=== PATIENT | female | born 1940 | race Caucasian/White ===

== ENCOUNTER 2018-07-12 07:44 | Emergency (ER) | payer MEDICARE, OTHER, SELFPAY ==
[2018-07-12 07:47] VITALS: BP 151/92; PULSE 84; RESP 16; TEMP 36.5; O2SAT 98
--- NOTE | 2018-07-12 08:43 | W.ED.GENAD ---
Discharge Plan Disposition Patient Disposition: HOME Condition: Improving Discharge Details Chief Complaint: Laceration Clinical Impression: Bleeding from wound Primary Care Provider: Jack Martinez ED Provider: Ever To Home Meds and New Rx's Prescriptions: Continue diltiazem HCl 120 mg capsule,extended release 24hr 120 mg PO HS Qty: 90 RF: 3 metformin [Glucophage] 850 mg tablet 850 mg PO BID Qty: 180 RF: 3 blood-glucose meter kit .ROUTE .MEDSUPPLY Qty: 1 RF: 0 blood sugar diagnostic [Blood Glucose Test] strip .ROUTE .MEDSUPPLY Qty: 20 RF: 12 cholecalciferol (vitamin D3) 1,000 UNIT capsule 1,000 unit PO DAILY RF: 0 clobetasol-emollient 45 GM cream 45 gm Topical BID PRNQty: 1 RF: 2 diclofenac sodium [Voltaren] 100 GM gel 2 g Topical BID PRNQty: 100 RF: 1 albuterol sulfate [ProAir HFA] 8.5 GM HFA aerosol inhaler 2 puff Inhalation Q4H PRN Qty: 1 RF: 6 multivitamin [Daily Multiple] 1 EACH tablet 1 ea PO DAILY RF: 0 hydrochlorothiazide 25 MG tablet 25 mg PO DAILY Qty: 90 RF: 3 glipizide 10 MG tablet 10 mg PO DAILY Qty: 90 RF: 3 blood sugar diagnostic [Blood Glucose Test] strip .ROUTE .MEDSUPPLY Qty: 20 RF: 0 blood-glucose meter kit .ROUTE .MEDSUPPLY Qty: 1 RF: 0 ascorbic acid (vitamin C) [Vitamin C] 500 MG tablet 500 mg PO BID Qty: 60 RF: 3 atorvastatin 40 MG tablet 40 mg PO HS RF: 0 aspirin 81 MG tablet,chewable 81 mg PO DIRECTED RF: 0 Discharge Instructions Instructions: Skin Adhesive Care (ED) Additional Instructions: 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 Call today. Keep wound protected. Return to the ER for any worsening or new concerning symptoms. Referrals: Myles Simpson MD [MD CONSULTING PHYSICIAN] - Medical Decision Making 78yo f on low-dose aspirin here 1 day status post skin lesion surgical removal from her left rastafari with oozing wound. Lidocaine with epinephrine 1 mL injected locally. Direct pressure with TXA soaked gauze applied. Skin adhesive applied. Bleeding controlled. She was instructed to call her treating provider Dr. Simpson today to arrange appropriate follow-up. I encouraged her to return to the emergency department immediately for any worsening or new concerning symptoms. I reviewed how to control bleeding with direct pressure should this be needed. HPI General Mode of arrival: ambulatory. Date/Time Provider Initiated Documentation: 07/12/18 07:58. Limitations to Documentation: no limitations. Information obtained by: patient. HPI Narrative: 78-year-old female on low-dose aspirin here 1 day status post skin lesion excision and removal from her left rastafari performed by Dr. Simpson at [place], here with bleeding wound. Wound started bleeding last night and used all night long. She had to change multiple dressings. No heavy bleeding. Bleeding improved with pressure. No associated weakness. Related Data Home Medications Medication Instructions Recorded Confirmed cholecalciferol (vitamin D3) 1,000 unit PO DAILY cap 02/06/14 07/12/18 clobetasol-emollient 45 gm TOPICAL BID PRN #1 script 12/16/14 07/12/18 ascorbic acid (vitamin C) [Vitamin 500 mg PO BID #60 tab 04/22/16 07/12/18 C] diclofenac sodium [Voltaren] 2 g TOPICAL BID PRN #100 gm 08/24/16 07/12/18 albuterol sulfate [ProAir HFA] 2 puff INHALATION Q4H PRN #1 11/16/16 07/12/18 inhaler multivitamin [Daily Multiple] 1 ea PO DAILY 05/16/17 06/12/18 hydrochlorothiazide 25 mg PO DAILY #90 tab 09/06/17 07/12/18 glipizide 10 mg PO DAILY #90 tab 12/05/17 07/12/18 blood sugar diagnostic strips #20 each 06/12/18 06/12/18 blood sugar diagnostic strips #20 each 06/12/18 06/12/18 blood-glucose meter kit #1 each 06/12/18 06/12/18 blood-glucose meter kit #1 each 06/12/18 06/12/18 diltiazem CD 120 mg 120 mg PO HS #90 tab-cap 06/12/18 07/12/18 capsule,extended release 24 hr metformin 850 mg tablet 850 mg PO BID #180 tab 06/12/18 07/12/18 aspirin 81 mg PO DIRECTED 07/12/18 07/12/18 atorvastatin 40 mg PO HS 07/12/18 07/12/18 Previous Rx's Medication Instructions Recorded ascorbic acid (vitamin C) [Vitamin 500 mg PO BID #60 tab 04/22/16 C] hydrochlorothiazide 25 mg PO DAILY #90 tab 09/06/17 glipizide 10 mg PO DAILY #90 tab 12/05/17 blood sugar diagnostic strips #20 each 06/12/18 blood-glucose meter kit #1 each 06/12/18 diltiazem CD 120 mg 120 mg PO HS #90 tab-cap 06/12/18 capsule,extended release 24 hr metformin 850 mg tablet 850 mg PO BID #180 tab 06/12/18 Allergies Allergy/AdvReac Type Severity Reaction Status Date / Time tetanus and diphtheria Allergy unknown Verified 07/12/18 08:04 toxoids sitagliptin AdvReac Severe diarrhea Verified 07/12/18 08:04 metoprolol AdvReac Intermediate FATIGUE Verified 07/12/18 08:04 General Stated Complaint: Laceration CARI: 4 Review of Systems Constitutional Reports as per HPI Integumentary/Breasts Reports as per HPI PFSH Family History Mother Alzheimer disease Father Alcohol abuse Personal history of malignant neoplasm Brother Cerebrovascular accident Seizures Medical History 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) Renal insufficiency, mild (Chronic 02/20/14) Pernicious anemia (Chronic 02/16/99) Muscle pain (Resolved 11/14/15) Multiple falls (Chronic 08/24/16) Moderate obstructive sleep apnea (Chronic 09/24/16) Lichen sclerosus (Chronic 12/16/14) Inflammation of toe (Resolved 06/17/15) Hypomagnesemia (Resolved 05/07/16) Hyperlipidemia (Chronic 09/18/92) Gait disturbance (Chronic 03/29/17) Essential hypertension (Chronic 09/18/60) Chronic cough (Chronic 07/29/14) Aortic stenosis, moderate (Chronic) Allergic rhinitis (Chronic 02/06/14) Pneumonia (Resolved) Dehydration (Resolved) Elevated transaminase level (Resolved) Anemia (Chronic) Delirium (Resolved) UTI (urinary tract infection) due to Enterococcus (Resolved) Discharge planning issues (Resolved) Irregular heart beat (Chronic) AF (atrial fibrillation) (Chronic) CHF (congestive heart failure) (Chronic) Social History adopted: No foster care: No lives independently: Yes number of children: 2 current occupational status: retired other: 2 children, both Smoking/Tobacco Use Status: Former Tobacco Use alcohol intake: never substance use type: does not use seatbelt use: always drive intox or ride w/ intox 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 water heater temp set < 120 deg: Yes working smoke detector in home: Yes fire extinguisher in home: No carbon monox detector in home: Yes victim of emotional abuse: No victim of sexual abuse: No would you like helpful sources: No Surgical History Cataract, rgt eye (06/24/15) Dilation and curettage Extraction of cataract (06/10/15) Tonsillectomy and adenoidectomy Exam Skin Other: left rastafari with shave surgical wound quarter sized, oozing blood Course Vital Signs Temperature 36.5 C 07/12/18 07:47 Pulse 84 07/12/18 07:47 Respiratory Rate 16 07/12/18 07:47 Blood Pressure 151/92 H 07/12/18 07:47 Pulse Oximetry 98 07/12/18 07:47 Temperature 36.5 C 07/12/18 07:47 Temperature Source Skin 07/12/18 07:47 Pulse 84 07/12/18 07:47 Respiratory Rate 16 07/12/18 07:47 Respiratory Effort 07/12/18 07:49 Blood Pressure 151/92 H 07/12/18 07:47 Blood Pressure Position Sitting 07/12/18 07:47 Pulse Oximetry 98 07/12/18 07:47 Oxygen Delivery Method Room Air 07/12/18 07:47 Oxygen Flow Rate 0 07/12/18 07:47 Pain Level 0 07/12/18 07:49 Procedures Laceration Laceration 1: Site: face Side (If applicable): left Size (cm): 1 Description: other (cicular skin excision site) Depth: simple, single layer Skin layer closed with: other (skin adhesive)
--- NOTE | 2018-07-12 08:49 | ED.GENADUL_ITS ---
Discharge Plan Disposition Patient Disposition: HOME Condition: Improving Discharge Details Chief Complaint: Laceration Clinical Impression: Bleeding from wound Primary Care Provider: Jack Martinez ED Provider: Ever To Home Meds and New Rx's Prescriptions: Continue diltiazem HCl 120 mg capsule,extended release 24hr 120 mg PO HS Qty: 90 RF: 3 metformin [Glucophage] 850 mg tablet 850 mg PO BID Qty: 180 RF: 3 blood-glucose meter kit .ROUTE .MEDSUPPLY Qty: 1 RF: 0 blood sugar diagnostic [Blood Glucose Test] strip .ROUTE .MEDSUPPLY Qty: 20 RF: 12 cholecalciferol (vitamin D3) 1,000 UNIT capsule 1,000 unit PO DAILY RF: 0 clobetasol-emollient 45 GM cream 45 gm Topical BID PRNQty: 1 RF: 2 diclofenac sodium [Voltaren] 100 GM gel 2 g Topical BID PRNQty: 100 RF: 1 albuterol sulfate [ProAir HFA] 8.5 GM HFA aerosol inhaler 2 puff Inhalation Q4H PRN Qty: 1 RF: 6 multivitamin [Daily Multiple] 1 EACH tablet 1 ea PO DAILY RF: 0 hydrochlorothiazide 25 MG tablet 25 mg PO DAILY Qty: 90 RF: 3 glipizide 10 MG tablet 10 mg PO DAILY Qty: 90 RF: 3 blood sugar diagnostic [Blood Glucose Test] strip .ROUTE .MEDSUPPLY Qty: 20 RF: 0 blood-glucose meter kit .ROUTE .MEDSUPPLY Qty: 1 RF: 0 ascorbic acid (vitamin C) [Vitamin C] 500 MG tablet 500 mg PO BID Qty: 60 RF: 3 atorvastatin 40 MG tablet 40 mg PO HS RF: 0 aspirin 81 MG tablet,chewable 81 mg PO DIRECTED RF: 0 Discharge Instructions Instructions: Skin Adhesive Care (ED) Additional Instructions: Please follow-up with your assistant 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 Call today. Keep wound protected. Return to the ER for any worsening or new concerning symptoms. Referrals: Myles Simpson MD [MD CONSULTING PHYSICIAN] - Medical Decision Making 78yo f on low-dose aspirin here 1 day status post skin lesion surgical removal from her left scientologist with oozing wound. Lidocaine with epinephrine 1 mL injected locally. Direct pressure with TXA soaked gauze applied. Skin adhesive applied. Bleeding controlled. She was instructed to call her treating provider Dr. Simpson today to arrange appropriate follow-up. I encouraged her to return to the emergency department immediately for any worsening or new concerning symptoms. I reviewed how to control bleeding with direct pressure should this be needed. HPI General Mode of arrival: ambulatory . Date/Time Provider Initiated Documentation: 07/12/18 07:58 . Limitations to Documentation: no limitations . Information obtained by: patient . HPI Narrative: 78-year-old female on low-dose aspirin here 1 day status post skin lesion excision and removal from her left scientologist performed by Dr. Simpson at [place], here with bleeding wound. Wound started bleeding last night and used all night long. She had to change multiple dressings. No heavy bleeding. Bleeding improved with pressure. No associated weakness. Related Data Home Medications Medication Instructions Recorded Confirmed cholecalciferol (vitamin D3) 1,000 unit PO DAILY cap 02/06/14 07/12/18 clobetasol-emollient 45 gm TOPICAL BID PRN #1 script 12/16/14 07/12/18 ascorbic acid (vitamin C) [Vitamin 500 mg PO BID #60 tab 04/22/16 07/12/18 C] diclofenac sodium [Voltaren] 2 g TOPICAL BID PRN #100 gm 08/24/16 07/12/18 albuterol sulfate [ProAir HFA] 2 puff INHALATION Q4H PRN #1 11/16/16 07/12/18 inhaler multivitamin [Daily Multiple] 1 ea PO DAILY 05/16/17 06/12/18 hydrochlorothiazide 25 mg PO DAILY #90 tab 09/06/17 07/12/18 glipizide 10 mg PO DAILY #90 tab 12/05/17 07/12/18 blood sugar diagnostic strips #20 each 06/12/18 06/12/18 blood sugar diagnostic strips #20 each 06/12/18 06/12/18 blood-glucose meter kit #1 each 06/12/18 06/12/18 blood-glucose meter kit #1 each 06/12/18 06/12/18 diltiazem CD 120 mg 120 mg PO HS #90 tab-cap 06/12/18 07/12/18 capsule,extended release 24 hr metformin 850 mg tablet 850 mg PO BID #180 tab 06/12/18 07/12/18 aspirin 81 mg PO DIRECTED 07/12/18 07/12/18 atorvastatin 40 mg PO HS 07/12/18 07/12/18 Previous Rx's Medication Instructions Recorded ascorbic acid (vitamin C) [Vitamin 500 mg PO BID #60 tab 04/22/16 C] hydrochlorothiazide 25 mg PO DAILY #90 tab 09/06/17 glipizide 10 mg PO DAILY #90 tab 12/05/17 blood sugar diagnostic strips #20 each 06/12/18 blood-glucose meter kit #1 each 06/12/18 diltiazem CD 120 mg 120 mg PO HS #90 tab-cap 06/12/18 capsule,extended release 24 hr metformin 850 mg tablet 850 mg PO BID #180 tab 06/12/18 Allergies Allergy/AdvReac Type Severity Reaction Status Date / Time tetanus and diphtheria Allergy unknown Verified 07/12/18 08:04 toxoids sitagliptin AdvReac Severe diarrhea Verified 07/12/18 08:04 metoprolol AdvReac Intermediate FATIGUE Verified 07/12/18 08:04 General Stated Complaint: Laceration CARI: 4 Review of Systems Constitutional Reports as per HPI Integumentary/Breasts Reports as per HPI PFSH Family History Mother Alzheimer disease Father Alcohol abuse Personal history of malignant neoplasm Brother Cerebrovascular accident Seizures Medical History 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) Renal insufficiency, mild (Chronic 02/20/14) Pernicious anemia (Chronic 02/16/99) Muscle pain (Resolved 11/14/15) Multiple falls (Chronic 08/24/16) Moderate obstructive sleep apnea (Chronic 09/24/16) Lichen sclerosus (Chronic 12/16/14) Inflammation of toe (Resolved 06/17/15) Hypomagnesemia (Resolved 05/07/16) Hyperlipidemia (Chronic 09/18/92) Gait disturbance (Chronic 03/29/17) Essential hypertension (Chronic 09/18/60) Chronic cough (Chronic 07/29/14) Aortic stenosis, moderate (Chronic) Allergic rhinitis (Chronic 02/06/14) Pneumonia (Resolved) Dehydration (Resolved) Elevated transaminase level (Resolved) Anemia (Chronic) Delirium (Resolved) UTI (urinary tract infection) due to Enterococcus (Resolved) Discharge planning issues (Resolved) Irregular heart beat (Chronic) AF (atrial fibrillation) (Chronic) CHF (congestive heart failure) (Chronic) Social History adopted: No foster care: No lives independently: Yes number of children: 2 current occupational status: retired other: 2 children, both Smoking/Tobacco Use Status: Former Tobacco Use alcohol intake: never substance use type: does not use seatbelt use: always drive intox or ride w/ intox 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 water heater temp set < 120 deg: Yes working smoke detector in home: Yes fire extinguisher in home: No carbon monox detector in home: Yes victim of emotional abuse: No victim of sexual abuse: No would you like helpful sources: No Surgical History Cataract, rgt eye (06/24/15) Dilation and curettage Extraction of cataract (06/10/15) Tonsillectomy and adenoidectomy Exam Skin Other: left scientologist with shave surgical wound quarter sized, oozing blood Course Vital Signs Temperature 36.5 C 07/12/18 07:47 Pulse 84 07/12/18 07:47 Respiratory Rate 16 07/12/18 07:47 Blood Pressure 151/92 H 07/12/18 07:47 Pulse Oximetry 98 07/12/18 07:47 Temperature 36.5 C 07/12/18 07:47 Temperature Source Skin 07/12/18 07:47 Pulse 84 07/12/18 07:47 Respiratory Rate 16 07/12/18 07:47 Respiratory Effort 07/12/18 07:49 Blood Pressure 151/92 H 07/12/18 07:47 Blood Pressure Position Sitting 07/12/18 07:47 Pulse Oximetry 98 07/12/18 07:47 Oxygen Delivery Method Room Air 07/12/18 07:47 Oxygen Flow Rate 0 07/12/18 07:47 Pain Level 0 07/12/18 07:49 Procedures Laceration Laceration 1: Site: face Side (If applicable): left Size (cm): 1 Description: other (cicular skin excision site) Depth: simple, single layer Skin layer closed with: other (skin adhesive)
[2018-07-12] MEDS: Tranexamic Acid 650 MG TAB PO (08:50)
== END 2018-07-12 09:41 | disposition home or self-care (01) ==
PROVIDERS: Emergency Provider Student in an Organized Health Care Education/Training Program; PCP Family Medicine
DX: L76.21 Postprocedural hemorrhage of skin and subcutaneous tissue following a dermatologic procedure (principal); Y84.8 Other medical procedures as the cause of abnormal reaction of the patient, or of later complication, without mention of misadventure at the time of the procedure; E11.22 Type 2 diabetes mellitus with diabetic chronic kidney disease; Z79.84 Long term (current) use of oral hypoglycemic drugs; N18.9 Chronic kidney disease, unspecified; I12.9 Hypertensive chronic kidney disease with stage 1 through stage 4 chronic kidney disease, or unspecified chronic kidney disease
CPT/HCPCS: 12011

== ENCOUNTER 2018-10-17 09:39 | Outpatient (CLI) | payer MEDICARE, OTHER, SELFPAY ==
[2018-10-17 10:10] LABS: Abs Immature Grans 0.02 k/cumm (0.0-0.09); Absolute Basophil Count 0.11 k/cumm (0.0-0.2); Absolute Eosinophil Count 0.38 k/cumm (0.0-0.7); Absolute Lymphocyte Count 1.64 k/cumm (1.2-3.4); Absolute Monocyte Count 0.64 k/cumm (0.11-0.7); Absolute Neutrophil Count 5.53 k/cumm (1.2-6.7); Basophils % 1.3; Eosinophils % 4.6; HCT 37.7 % (36.0-46.0); HGB 12.2 g/dL (12.0-15.5); Immature Grans % 0.2; Lymphocytes % 19.7; Mean Corp. HGB Concentration 32.4 g/dL (32.0-36.0); Mean Corpuscular Hemoglobin 29.9 pg (27.0-33.0); Mean Corpuscular Volume 92.4 fL (80-95); Mean Platelet Volume 11.1 fL (8.0-11.0); Monocytes % 7.7; Neutrophils % 66.5; Platelet Count 228 x1000/uL (130-400); RBC 4.08 m/cumm (4.00-5.20); RBC Distribution Width 15.3 % (11.7-14.6); White Blood Cell Count 8.32 k/cumm (4.4-10.8)
[2018-10-17 11:32] LABS: Anion Gap 8.6 mmol/L (3-11); BUN 23 mg/dL (7-18); CO2 31.4 mmol/L (21.0-32.0); CREATININE 1.01 mg/dL (0.55-1.02); Calcium 9.4 mg/dL (8.5-10.1); Chloride 99 mmol/L (98-107); Estimated GFR 52.74 (mL/min/1.73m2); Glucose 183 mg/dL (70-100); Potassium 4.2 mmol/L (3.5-5.1); Sodium 139 mmol/L (136-145)
[2018-10-17 12:01] LABS: Vitamin B12 484 pg/mL (193-986)
== END 2018-10-17 09:59 ==
PROVIDERS: PCP Family Medicine; Visit Provider Family Medicine
DX: D51.0 Vitamin B12 deficiency anemia due to intrinsic factor deficiency (principal); N28.0 Ischemia and infarction of kidney
CPT/HCPCS: 36415; 80048; 82607; 85025

== ENCOUNTER 2019-09-24 11:51 | Outpatient (REF) | payer MEDICARE, OTHER, SELFPAY ==
--- NOTE | 2019-09-24 11:06 | SKI_PTH ---
PATIENT: Leila Moore LOC: [facility] U#:[id number] AGE/SX: 79/F ROOM: RE09/24/[address]: Sabino Casillas DO : 1940 BED: DIS: 09/24/2019 SPEC #: [id number] RECD: 09/24/19 18:15 STATUS: ESVIN REQ #: [id number] ALDEN: 09/24/19 11:[address]: Sabino Casillas DEPT: Surgical Specimen RECD BY: Sharon Weems ENTERED: 09/24/19 18:16 SP TYPE: NBA H[place] DR: Jack Martinez DO Tissues: 1 - SKIN BIOPSY(SHAVE/PUNCH) 2 - SKIN BIOPSY(SHAVE/PUNCH) 3 - SKIN BIOPSY(SHAVE/PUNCH) Procedures: IMMUNOPEROXIDASE STAIN SKIN LEVEL 4 Comments: [id number]
== END 2019-09-24 12:11 ==
LOC: LBN 11:51
PROVIDERS: PCP Family Medicine; Visit Provider Otolaryngology Otolaryngology/Facial Plastic Surgery
DX: D22.39 Melanocytic nevi of other parts of face (principal); D04.39 Carcinoma in situ of skin of other parts of face; D23.39 Other benign neoplasm of skin of other parts of face
CPT/HCPCS: 88305; 88361

== ENCOUNTER 2019-10-14 18:25 | Emergency (ER) | payer MEDICARE, OTHER, SELFPAY ==
[2019-10-14 18:41] VITALS: BP 109/91; PULSE 88; RESP 20; TEMP 36.6; O2SAT 95
--- NOTE | 2019-10-14 19:25 | DI.CT_ITS ---
EXAM: CT HEAD CERVICAL SPINE WO CLINICAL HISTORY: fall, head lac TECHNIQUE: Noncontrast COMPARISON: HEAD NECK FACIAL WO from 04/20/2016 FINDINGS: Head CT: No intracranial hemorrhage or skull fracture is seen. The ventricles are normal in size. There are mild white matter changes of small vessel disease. There is gauze overlying the right supe rior orbit. The globes appear intact. The sinuses and mastoid air cells appear clear. C-spine CT: There is no evidence of fracture or subluxation. Degenerative disc changes are present, greatest at C5-6 and C6-7. There is no prevertebral soft tissue swelling. No pneumothorax is seen a t the lung apices. IMPRESSION: No acute abnormality.
--- NOTE | 2019-10-14 19:29 | W.ED.GENAD ---
Discharge Plan Disposition Patient Disposition: HOME Discharge Details Chief Complaint: Laceration Clinical Impression: Laceration of head, Fall, Head injury Primary Care Provider: Jack Martinez ED Provider: Mando Bob Home Meds and New Rx's Prescriptions: No Action albuterol sulfate [ProAir HFA] 90 mcg/actuation HFA aerosol inhaler 2 puff Inhalation Q4H PRN Qty: 1 RF: 6 atorvastatin 40 mg tablet 40 mg PO HS Qty: 90 RF: 3 metformin [Glucophage] 850 mg tablet 850 mg PO BID Qty: 180 RF: 3 clobetasol-emollient 0.05 % cream 45 gm Topical BID PRN (Reason: itch, dryness) Qty: 1 RF: 3 glipizide 10 mg tablet 10 mg PO DAILY Qty: 90 RF: 3 hydrochlorothiazide 25 mg tablet 25 mg PO DAILY Qty: 90 RF: 3 ascorbic acid (vitamin C) [Vitamin C] 500 mg tablet 500 mg PO DAILY RF: 0 diclofenac sodium [Voltaren] 100 GM gel 2 g Topical BID PRNQty: 100 RF: 1 multivitamin [Daily Multiple] 1 EACH tablet 1 ea PO DAILY RF: 0 (DME) Blood Glucose Test strip See Dose Instructions .ROUTE .MEDSUPPLY Qty: 20 RF: 0 salicylic acid 3 % liquid 1 applic TP HS RF: 0 diltiazem HCl 120 mg capsule,extended release 24hr 120 mg PO HS Qty: 90 RF: 3 aspirin 81 MG tablet,chewable 81 mg PO DIRECTED RF: 0 Discharge Instructions Instructions: Laceration (ED), Head Injury (ED) Additional Instructions: Return to the emergency department in 5 days for suture removal. Keep the area clean with soap and water. Do not soak the area. You can apply small amounts of bacitracin/Neosporin ointment. Take Tylenol for pain if needed. Referrals: Mando Bob PA [Emergency Provider] - 5 days (for suture removal) Medical Decision Making This is a nontoxic-appearing 79-year-old female who presents to the emergency department status post mechanical fall earlier this morning. No LOC, headache or neck pain. No preceding symptoms. She has a large facial laceration involving the right side of her forehead. See procedure note above. Head CT, cervical spine CT negative for acute process. Hemostasis obtained with wound approximation and direct pressure. Neurovascularly intact at this time. Discussed suture removal and wound care. She will return to the emergency department in 5 days for reevaluation and removal HPI General Date/Time Provider Initiated Documentation: 10/14/19 19:11. HPI Narrative: Patient is an 79-year-old female who presents to the emergency department status post fall roughly 8 hours ago. She states that she was outside shoveling snow when she slipped on the ice striking her head off the ground. She denies any LOC or neck pain. She is not on any blood thinning medication. She was able to control the bleeding with pressure dressings at home, however when her nephew came to her house and realized the extent of her injury he thought she may require stitches. She denies any facial trauma. No double vision or eye pain. Related Data Home Medications Medication Instructions Recorded Confirmed diclofenac sodium [Voltaren] 2 g TOPICAL BID PRN #100 gm 08/24/16 10/11/19 multivitamin [Daily Multiple] 1 ea PO DAILY 05/16/17 10/11/19 blood sugar diagnostic #20 each 06/12/18 10/11/19 aspirin 81 mg PO DIRECTED 07/12/18 10/11/19 albuterol sulfate 90 mcg/actuation 2 puff INHALATION Q4H PRN #1 09/29/18 10/11/19 aerosol inhaler inhaler atorvastatin 40 mg tablet 40 mg PO HS #90 tab 01/09/19 10/11/19 clobetasol-emollient 0.05 % 45 gm TOPICAL BID PRN #1 script 01/09/19 10/11/19 topical cream metformin 850 mg tablet 850 mg PO BID #180 tab 01/09/19 10/11/19 salicylic acid 3 % topical liquid 1 applic TP HS ml 06/11/19 10/11/19 diltiazem HCl 120 mg 120 mg PO HS #90 tab-cap 07/06/19 10/11/19 capsule,extended release 24 hr ascorbic acid (vitamin C) 500 mg 500 mg PO DAILY tab 07/12/19 10/11/19 tablet glipizide 10 mg tablet 10 mg PO DAILY #90 tab 08/24/19 10/11/19 hydrochlorothiazide 25 mg tablet 25 mg PO DAILY #90 tab 08/24/19 10/11/19 Previous Rx's Medication Instructions Recorded albuterol sulfate 90 mcg/actuation 2 puff INHALATION Q4H PRN #1 09/29/18 aerosol inhaler inhaler atorvastatin 40 mg tablet 40 mg PO HS #90 tab 01/09/19 clobetasol-emollient 0.05 % 45 gm TOPICAL BID PRN #1 script 01/09/19 topical cream metformin 850 mg tablet 850 mg PO BID #180 tab 01/09/19 diltiazem HCl 120 mg 120 mg PO HS #90 tab-cap 07/06/19 capsule,extended release 24 hr glipizide 10 mg tablet 10 mg PO DAILY #90 tab 08/24/19 hydrochlorothiazide 25 mg tablet 25 mg PO DAILY #90 tab 08/24/19 Allergies Allergy/AdvReac Type Severity Reaction Status Date / Time tetanus and diphtheria Allergy unknown Verified 10/14/19 18:43 toxoids sitagliptin AdvReac Severe diarrhea Verified 10/14/19 18:43 metoprolol AdvReac Intermediate FATIGUE Verified 10/14/19 18:43 General Stated Complaint: Laceration CARI: 3 Review of Systems Constitutional Constitutional: Reports frequent falls Eyes Eyes: Denies diplopia and Denies loss of peripheral vision ENT Ears, Nose, Mouth, and Throat: Denies nasal trauma, Denies neck pain and Denies nose pain Cardiovascular Cardiovascular: Denies chest pain, Denies syncope, Denies lightheadedness, Denies palpitations and Denies paroxysmal nocturnal dyspnea Musculoskeletal Musculoskeletal: Denies neck pain Neurologic Neurologic: Denies syncope and Reports frequent falls Endocrine Endocrine: Denies palpitations [facility] Social History (Updated 04/10/19 @ 08:52 by Mari Gamino LPN) Smoking/Tobacco Use Status: Former Tobacco Use Alcohol Intake: never Drug use: Never Substance use type: does not use Adopted: No Foster care: No Number of Children: 2 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[employer] Current gender identity: female Other: 2 children, 1 What is your relationship status?: Panel score (0-1 are the most socially isolated patients): 0 What type of physical activity do you participate in: none Seatbelt use: always Drive intox or ride w/intox local company tanker driver: No Water heater temp set <120 deg: Yes Working smoke detector in home: Yes Fire extinguisher in home: No Carbon monox detector in home: Yes Do you feel safe at home: Yes Do you feel safe in your relationship?: Yes Victim of emotional abuse: No Victim of sexual abuse: No Would you like helpful sources: No Exam Const General: cooperative, healthy appearing, comfortable and no acute distress Orientation: alert, awake and oriented x3 HENMT Head: laceration (Large stellate laceration to the lateral anterior aspect of the forehead), no palpable skull fracture and no raccoon eyes Ears: hearing grossly normal bilaterally and external ears normal General nose exam: external nose normal Face and sinus: face symmetric Mouth: oral mucosae normal Teeth and gingiva: dentition normal Throat: posterior oropharynx normal Neck Neck: normal visual inspection and full ROM Chest Chest: normal inspection of the chest and normal palpation of entire chest wall Resp Effort & Inspection: normal respiratory effort and able to speak in complete sentences Auscultation: clear to auscultation bilaterally Cardio Pulses: radial pulses present and ulnar pulses present GI Inspection: normal to inspection Palpation: soft Back/Spine/Pelvis Cervical Spine: normal cervical lordosis and cervical ROM normal Thoracic/Lumbar Spine: thoracic and lumbar spine normal to inspection Course Vital Signs Vital signs: Vital Signs Temperature 36.6 C 10/14/19 18:41 Pulse 88 10/14/19 18:41 Respiratory Rate 20 10/14/19 18:41 Blood Pressure 109/91 H 10/14/19 18:41 Pulse Oximetry 95 10/14/19 18:41 Temperature 36.6 C 10/14/19 18:41 Temperature Source Temporal Artery Scan 10/14/19 18:41 Pulse 88 10/14/19 18:41 Respiratory Rate 20 10/14/19 18:41 Respiratory Effort Non-Labored 10/14/19 18:44 Blood Pressure 109/91 H 10/14/19 18:41 Blood Pressure Position Sitting 10/14/19 18:41 Pulse Oximetry 95 10/14/19 18:41 Oxygen Delivery Method Room Air 10/14/19 18:41 Oxygen Flow Rate 0 10/14/19 18:41 Pain Level 3 10/14/19 18:41 Procedures Laceration Laceration 1: Site: face Side (If applicable): right Size (cm): 6 Description: irregular and clean Depth: simple, single layer Local Anesthetic: Lidocaine 2% and with Epi Amount of anesthesia used (mL): 3 Pre-repair: wound explored and irrigated extensively Skin layer closed with: other (Prolene) Size (cm): 5-0 Number of sutures: 8 Technique: simple, interrupted
--- NOTE | 2019-10-14 19:49 | DI.VRAD_ITS ---
PROCEDURE INFORMATION: Exam: CT Head Without Contrast Exam date and time: 10/14/2019 7:25 PM Age: 79 years old Clinical indication: Injury or trauma; Initial encounter; Blunt trauma (contusions or hematomas) and laceration; Without loss of consciousness; Without residual foreign body; Scalp; Injury date: 10/14/19; Injury details: Fall with laceration to right side of head; Patient HX: Fell earlier today, no loc, TECHNIQUE: Imaging protocol: Computed tomography of the head without contrast. Radiation optimization: All CT scans at this facility use at least one of these dose optimization techniques: automated exposure control; mA and/or kV adjustment per patient size (includes targeted exams where dose is matched to clinical indication); or iterative reconstruction. COMPARISON: CT HEAD FACIALS WO 10/10/2014 9:39 AM FINDINGS: Chronic white matter changes of probable small vessel disease. No evidence of hemorrhage. No mass effect. No acute intracranial abnormality. No evidence of acute fracture. IMPRESSION: No evidence of acute intracranial process. PROCEDURE INFORMATION: Exam: CT Cervical Spine Without Contrast Exam date and time: 10/14/2019 7:25 PM Age: 79 years old Clinical indication: Injury or trauma; Initial encounter; Blunt trauma (contusions or hematomas) and laceration; Without loss of consciousness; Without residual foreign body; Scalp; Injury date: 10/14/19; Injury details: Fall with laceration to right side of head; Patient HX: Fell earlier today, no loc, TECHNIQUE: Imaging protocol: Computed tomography images of the cervical spine without contrast. Radiation optimization: All CT scans at this facility use at least one of these dose optimization techniques: automated exposure control; mA and/or kV adjustment per patient size (includes targeted exams where dose is matched to clinical indication); or iterative reconstruction. COMPARISON: CT HEAD FACIALS WO 10/10/2014 9:39 AM FINDINGS: Degenerative disc and facet disease most pronounced at the C5-C6 and C6-C7 levels. No focal subluxation. No acute fracture. Paraspinous soft tissues unremarkable. Lung apices within normal limits. IMPRESSION: No evidence of acute bony abnormality. Dictated and Authenticated by: Raj Landry MD. Ordering:IVANIA Gilmore MD
[2019-10-14 20:36] VITALS: BP 109/91; PULSE 88; RESP 20; TEMP 36.6; O2SAT 95
== END 2019-10-14 20:35 | disposition home or self-care (01) ==
PROVIDERS: Emergency Provider Physician Assistant; PCP Family Medicine
DX: S01.111A Laceration without foreign body of right eyelid and periocular area, initial encounter (principal); S09.90XA Unspecified injury of head, initial encounter; W00.0XXA Fall on same level due to ice and snow, initial encounter
CPT/HCPCS: 12013; 99285; 70450; 72125; 99282

== ENCOUNTER 2020-09-30 08:56 | Emergency (ER) | payer MEDICARE, OTHER, SELFPAY ==
[2020-09-30] VITALS (9 sets, daily range): BP systolic 137–166; BP diastolic 71–76; PULSE 59–97; RESP 13–21; TEMP 36.6–36.7; O2SAT 97–99
--- NOTE | 2020-09-30 09:15 | RT.EKG_ITS ---
APPROVED REPORT Exam: Resting ECG Patient Location: E HR:69 bpm ECG Measurements Heart Rate 69 AXIS WI [id number] P [id number] QRSd 87 QRS -2 QT 542 T 64 QTc 582 Conclusion Pacemaker spikes or artifacts...timing non-diagnostic Atrial fibrillation...V-rate 55- 80, irreg A-activity Q >35mS, T neg, V2-V5 Prolonged QT interval...QTc >500mS No stemi. no sig change compared to 04/20/16
--- NOTE | 2020-09-30 09:19 | ED.GENADUL_ITS ---
Discharge Plan Disposition Patient Disposition: HOME Condition: Stable Discharge Details Clinical Impression: Acute wrist pain, Acute pain of right shoulder Primary Care Provider: Jack Matrinez ED Provider: Ever To Home Meds and New Rx's Prescriptions: Continued albuterol sulfate [ProAir HFA] 90 mcg/actuation HFA aerosol inhaler 2 puff Inhalation Q4H PRN Qty: 1 RF: 6 (DME) Blood Glucose Test strip See Dose Instructions .ROUTE .MEDSUPPLY Qty: 20 RF: 0 metformin [Glucophage] 850 mg tablet 850 mg PO BID Qty: 180 RF: 3 potassium chloride [Klor-Con M20] 20 mEq tablet,ER particles/crystals 20 meq PO DAILY Qty: 90 RF: 3 atorvastatin 40 mg tablet 40 mg PO HS Qty: 90 RF: 3 apixaban 2.5 mg tablet 2.5 mg PO BID Qty: 180 RF: 3 diltiazem HCl 120 mg capsule,extended release 24hr 120 mg PO HS Qty: 90 RF: 3 hydrochlorothiazide 25 mg tablet 25 mg PO DAILY Qty: 90 RF: 3 Discharge Instructions Instructions: Fall Prevention for Older Adults (ED), Wrist Sprain (ED) Additional Instructions: Please use wrist splint over the next 1 to 2 weeks. Please take acetaminophen (tylenol) - 650mg every 6 hours by mouth as needed for pain. Please contact your primary care physician to arrange follow-up. Call today to schedule follow-up. Return to the ER for any worsening or new concerning symptoms. Referrals: Jack Martinez DO [Primary Care Provider] - Discharge Data Discharge Date/Time-TO BE ENTERED AT DEPARTURE: 09/30/20 12:25 Medical Decision Making 925??80-year-old female with multiple medical problems including history of dementia, presents with chief complaint of right arm pain. She has focal tenderness with swelling of the right wrist as well as tenderness right shoulder with painful range of motion at both these joints. Patient does not recall any fall. No overlying erythema or warmth to suggest inflammatory/infectious process. No signs of head trauma. Cervical exam normal. Plan to obtain x-ray imaging to assess for traumatic injury. Patient does have indigestion. I will give her a dose of Mylanta. A screening ECG was reviewed and interpreted by me: Please see Nii coley fib with no STEMI, nondiagnostic. 1130 --patient reassessed and comfortable after medication. X-ray of the right wrist was reviewed and interpreted by radiology: No fracture. X-ray of the right shoulder was reviewed and interpreted by radiology: No acute fracture. Suspect likely sprain of the right wrist. Plan to apply wrist splint. Patient will require outpatient follow-up with PCP to reassess for improvement. --Patient was able to ambulate around the department to the bathroom without any significant issues. Nursing spoke with patient's family and patient will be discharged home. HPI General Mode of arrival: EMS . Date/Time Provider Initiated Documentation: 09/30/20 08:56 . Limitations to Documentation: altered mental status . Information obtained by: patient and EMS . HPI Narrative: 80-year-old female with multiple medical problems including history presents with chief complaint of right arm pain. Patient notes pain started yesterday afternoon and has persisted. Pain is worse with any movement of the arm. Pain is localized to the right wrist and right shoulder. She denies neck pain. She is not recall any fall or known trauma but seems to have poor recollection. Patient denies headache. Patient denies chest pain or shortness of breath. She does note that she feels some indigestion in her upper abdomen. She has not taken anything for pain today other than some Coca[employer]a. Related Data Home Medications Medication Instructions Recorded Confirmed blood sugar diagnostic #20 each 06/12/18 08/05/20 albuterol sulfate 90 mcg/actuation 2 puff INHALATION Q4H PRN #1 09/29/18 10/04/20 aerosol inhaler inhaler metformin 850 mg tablet 850 mg PO BID #180 tab 02/01/20 10/04/20 potassium chloride 20 mEq 20 meq PO DAILY #90 tab 03/03/20 10/04/20 tablet,extended release(part/cryst) atorvastatin 40 mg tablet 40 mg PO HS #90 tab 03/31/20 10/04/20 apixaban 2.5 mg tablet 2.5 mg PO BID #180 tab 04/03/20 10/04/20 diltiazem HCl 120 mg 120 mg PO HS #90 tab-cap 09/01/20 10/04/20 capsule,extended release 24 hr hydrochlorothiazide 25 mg tablet 25 mg PO DAILY #90 tab 09/01/20 10/04/20 Previous Rx's Medication Instructions Recorded albuterol sulfate 90 mcg/actuation 2 puff INHALATION Q4H PRN #1 09/29/18 aerosol inhaler inhaler metformin 850 mg tablet 850 mg PO BID #180 tab 02/01/20 potassium chloride 20 mEq 20 meq PO DAILY #90 tab 03/03/20 tablet,extended release(part/cryst) atorvastatin 40 mg tablet 40 mg PO HS #90 tab 03/31/20 apixaban 2.5 mg tablet 2.5 mg PO BID #180 tab 04/03/20 diltiazem HCl 120 mg 120 mg PO HS #90 tab-cap 09/01/20 capsule,extended release 24 hr hydrochlorothiazide 25 mg tablet 25 mg PO DAILY #90 tab 09/01/20 Allergies Allergy/AdvReac Type Severity Reaction Status Date / Time tetanus and diphtheria Allergy unknown Verified 09/02/20 13:33 toxoids sitagliptin AdvReac Severe diarrhea Verified 09/02/20 13:33 metoprolol AdvReac Intermediate FATIGUE Verified 09/02/20 13:33 General Stated Complaint: Orthopedic CARI: 3 Review of Systems All systems reviewed & are unremarkable except as noted in HPI and below Constitutional Constitutional: Denies fever(s) Musculoskeletal Musculoskeletal: Reports as per HPI [facility] Medical History AF (atrial fibrillation) Allergic rhinitis (02/06/14) Anemia Aortic stenosis, moderate TTE 01/17/20: Critical Aortic Stenosis (0.5 cm2, 43 mmHg) Mitral Valve Stenosis CHF (congestive heart failure) Chronic cough (07/29/14) R base rales, ?interstitial dis, h/o [facility] eval 2003: hyper reactive, pos methacholine challenge; no response steroid inhaled; recurrent Dehydration Delirium Discharge planning issues Elevated transaminase level Essential hypertension (09/18/1960) on HCTZ 25 since 20 y/o! Gait disturbance (03/29/17) Hyperlipidemia (09/18/92) Hypomagnesemia (05/07/16) Inflammation of toe (06/17/15) L 2nd toe , Dr Snow Irregular heart beat Lichen sclerosus (12/16/14) Jennifer 2008, perineum; responds to clobetasol Moderate obstructive sleep apnea (09/24/16) CPAP since 09/2015 due to moderately severe Multiple falls (08/24/16) 04/2016; 05/2016; PT Tano Ray Muscle pain (11/14/15) buttock and ant thigh, with exertion, ? 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 Cyril Robles, Obgyn; peripheral neuropathy; Goal A1c <8.0 Type II diabetes mellitus with renal manifestations micral >200 UTI (urinary tract infection) due to Enterococcus Surgical History Cataract, rgt eye (06/24/15) Dilation and curettage 1960's Extraction of cataract (06/10/15) Left eye- Dr. 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 Current gender identity: female Other: 2 children, 1 What is your relationship status?: Panel score (0-1 are the most socially isolated patients): 0 What type of physical activity do you participate in: none Seatbelt use: always Drive intox or ride w/intox lead driver: No Water heater temp set <120 deg: Yes Working smoke detector in home: Yes Fire extinguisher in home: No Carbon monox detector in home: Yes Do you feel safe at home: Yes Do you feel safe in your relationship?: Yes Victim of emotional abuse: No Victim of sexual abuse: No Would you like helpful sources: No Exam Const General: cooperative and no acute distress HENMT Mouth: moist mucous membranes Eyes Conjunctivae: normal conjunctivae Sclera: normal sclerae Neck Neck: trachea midline, supple and nontender Resp Auscultation: clear to auscultation bilaterally, no rales, no rhonchi and no wheezes Cardio Rate: regular rate and not tachycardic Rhythm: regular rhythm Heart Sounds: murmur systolic Pulses: radial pulses present on the right 2+ GI Palpation: soft, not firm, no guarding, no masses, not rigid and nontender Back/Spine/Pelvis Cervical Spine: No cervical spinal tenderness Thoracic/Lumbar Spine: No paraspinal tenderness, No thoracic spinal tenderness and No lumbar spinal tenderness Sacrum: no ecchymosis and no erythema Skin General skin exam: no rashes or lesions noted Neuro General: patient alert, patient awake, oriented (September 28, 2000) Patient Orientation: Person, Place and Time and tone normal Cognition: abnormal cognition (Poor recollection of some people and events) Speech: abnormal speech and expressive aphasia Extrem General: no edema Right upper extremity: shoulder/upper arm Details: tenderness Location: of the proximal humerus, axillary nerve sensory function normal and abnormal ROM Details: pain with passive ROM Details: with ABduction; no crepitus, no deformit y and no unusual warmth, elbow/forearm Details: normal ROM; no tenderness and no swelling and wrist Details: tenderness Location: of the distal radius, swelling, abnormal ROM and normal vascular exam; no unusual warmth and no deformity Psych Appearance: grossly normal Course Vital Signs Vital signs: Vital Signs Pulse 80 09/30/20 08:52 Respiratory Rate 18 09/30/20 08:52 Blood Pressure 156/76 H 09/30/20 08:52 Pulse Oximetry 99 09/30/20 08:52 Pulse 80 09/30/20 08:52 Respiratory Rate 18 09/30/20 08:52 Respiratory Effort Non-Labored 09/30/20 09:03 Blood Pressure 156/76 H 09/30/20 08:52 Blood Pressure Position Sitting 09/30/20 08:52 Pulse Oximetry 99 09/30/20 08:52 Oxygen Delivery Method Room Air 09/30/20 08:52 Oxygen Flow Rate 0 09/30/20 08:52 Pain Level 10 09/30/20 09:03 Comment 09/30/20 08:52
[2020-09-30] MEDS: Ketorolac 15 MG/ML VIAL IVP (09:24)
[2020-09-30] MEDS: Mylanta Suspension 30 ML CUP PO ×2 (09:24)
--- NOTE | 2020-09-30 09:50 | DI.RAD_ITS ---
EXAM: XR WRIST RT COMPL NAVICULAR CLINICAL HISTORY: pain, swelling, ?trauma. TECHNIQUE: 2D digital imaging was performed. COMPARISON: No exams were available for comparison FINDINGS: BONES: No acute fracture is present. No bony destructive lesion is seen. JOINTS: The carpal bones are normally aligned. Faint chondrocalcinosis. Degenerative changes at the s caphoid trapezium trapezoid joint. SOFT TISSUE: Soft tissue swelling around the wrist. IMPRESSION: Soft tissue swelling. Mild degenerative changes. DATA REPOSITORY: RADIATION DOSE DELIVERED:
--- NOTE | 2020-09-30 09:58 | DI.RAD_ITS ---
EXAM: XR SHOULDER RT COMPLETE 2+V CLINICAL HISTORY: pain, ? trauma. TECHNIQUE: 2D digital imaging was performed. COMPARISON: CR RIGHT CLAVICLE from 08/01/2014 FINDINGS: Somewhat limited exam due to positioning and patient condition. BONES: No acute fracture is present. No bony destructive lesion is seen. JOINTS: No dislocation present. There is spurring at the undersurface of the acromion. There is spur ring at the glenoid. SOFT TISSUE: Normal. IMPRESSION: Degenerative changes. No acute abnormality. DATA REPOSITORY: RADIATION DOSE DELIVERED:
--- NOTE | 2020-09-30 10:52 | DI.VRAD_ITS ---
PROCEDURE INFORMATION: Exam: XR Right Shoulder Exam date and time: 09/30/2020 9:53 AM Age: 80 years old Clinical indication: Other: Pain, ? trauma TECHNIQUE: Imaging protocol: XR Right shoulder. Views: 2 or more views. COMPARISON: No relevant prior studies available. FINDINGS: Bones/joints: Normal. Mild degenerative changes of AC joint. Soft tissues: Normal. IMPRESSION: No acute findings. Dictated and Authenticated by: Luis Fernando Dale MD. Ordering:SHAHBAZ Curtis MD
--- NOTE | 2020-09-30 10:53 | DI.VRAD_ITS ---
PROCEDURE INFORMATION: Exam: XR Right Wrist Exam date and time: 09/30/2020 9:53 AM Age: 80 years old Clinical indication: Other: Pain, swelling, ? trauma TECHNIQUE: Imaging protocol: XR Right wrist. Views: 3 or more views. COMPARISON: CR RIGHT WRIST COMPLETE 10/10/2014 9:27 AM FINDINGS: Bones/joints: Chondrocalcinosis. Degenerative changes of the scaphoid trapezium and trapezium 1st metacarpal articulation. No fracture. Soft tissues: Soft tissue swelling. IMPRESSION: No fracture. Dictated and Authenticated by: Luis Fernando Dale MD. Ordering:SHAHBAZ Curtis MD
--- NOTE | 2020-10-01 16:20 | CMPROGNOTE_ITS ---
- If Service Date Differs Date of service: 10/01/20 Time of Service: 16:20 Care Management Progress Note Leila is seen in the ED on 09/30/20 for acute wrist pain and acute pain of right shoulder. Today, LUDIN receives a phone call from Paris Arenas RN, chronic career development specialist at [facility], stating that she has spoken with patient and Leila is requesting Home Health PT Services. The request is discussed with Dr. Ever To, the provider who saw Leila in the emergency room, and a ref erral is subsequently made to Home Health for services.
== END 2020-09-30 12:25 | disposition home or self-care (01) ==
PROVIDERS: Emergency Provider Student in an Organized Health Care Education/Training Program; PCP Family Medicine
DX: M25.511 Pain in right shoulder (principal); M25.531 Pain in right wrist; K30 Functional dyspepsia
CPT/HCPCS: 29125; 93005; 96374; 99284; 73030; 73110; 93010; J1885

== ENCOUNTER 2020-10-04 00:23 | Inpatient (IN) | payer MEDICARE, OTHER, SELFPAY ==
--- NOTE | 2020-10-04 | DI.RAD_ITS ---
EXAM: XR FEMUR LT and XR pelvis AP CLINICAL HISTORY: fall, landed on left hip posteriorly. TECHNIQUE: 2D digital imaging was performed. COMPARISON: Priors available for comparison. FINDINGS: BONES: There is an acute comminuted fracture of the intertrochanteric region of the left femur. Ther e is impaction and displacement of the fracture noted. No bony destructive lesion is seen. Visualize d portion of the knee is unremarkable. No evidence of a hip dislocation is seen. Degenerative ramírez es are seen in the lumbar spine and the right hip. SOFT TISSUE: Vascular calcifications are seen in the soft tissues. IMPRESSION: Comminuted intertrochanteric fracture of the left femur with impaction and displacement noted. DATA REPOSITORY: RADIATION DOSE DELIVERED:
[2020-10-04 00:23] VITALS: BP 138/46; PULSE 85; RESP 16; TEMP 37.1; O2SAT 99
--- NOTE | 2020-10-04 00:29 | ED.GENADUL_ITS ---
Discharge Plan Disposition Patient Disposition: [facility] INPATIENT Condition: Fair Discharge Details Clinical Impression: Hip fracture, intertrochanteric Admit Date/Time: 10/04/20 02:00 Admit Provider: Clinton Handley Attending Provider: Clinton Handley Primary Care Provider: Jack Martinez ED Provider: Tyler Nelson Discharge Data Discharge Date/Time-TO BE ENTERED AT DEPARTURE: 10/04/20 02:50 Medical Decision Making <RAHDA Love - Last Filed: 10/04/20 17:36> Patient is a pleasant 80-year-old female brought in via EMS with chief complaint of left hip pain. She reports a prior to arrival she tripped on her way to the bathroom and fell landing on the posterior aspect of the left hip. Denies any numbness or tingling. Denies other injuries have an incident. Since that time, has had severe pain posterior aspect of left hip. Received 50 mcg of fentanyl which did help with her discomfort. She did not strike her head. No loss of consciousness. Did not attempt to ambulate since the fall. Pain does not radiate. Denies any numbness or tingling. She is distal pulses. No pelvic instability noted on exam. Abdomen is benign. She is able to move her ankle and toes well. Will obtain x-rays of the left hip. At the end of my shift, care transitioned to Dr. Nelson with imaging and disposition pending. <Tyler Nelson MD - Last Filed: 10/04/20 02:57> Patient signed out to me pending hip x-ray. Patient has intertrochanteric fracture. IV in place. Laboratory studies ordered. EKG ordered. Will place Pierce and admit to hospitalist with orthopedic consult in the morning. Nursing unable to place Pierce. Labs with anemia. Potassium low and replaced orally. Otherwise remained stable and admitted to hospitalist service. Lab Data Lab results reviewed: Yes I reviewed the patient's lab results. ECG Data Attestation: I personally reviewed and interpreted this ECG (s) as follows: Interpretation: see EKG HPI <RADHA Love - Last Filed: 10/04/20 17:36> General Mode of arrival: EMS . Date/Time Provider Initiated Documentation: 10/04/20 00:29 . Limitations to Documentation: no limitations . Information obtained by: patient, EMS and RN notes reviewed . History of Present Illness 80 year old F presents to the emergency department with the chief complaint of left hip pain, described as moderate, with intensity rated at 4. Quality is described as aching, and is localized to the left. Patient reports no radiation. Patient started experiencing this minute(s) and it has been constant. Immobilization improves symptom(s), Movement worsens symptoms . Patient notes no other symptoms.. Patient did receive the following treatments prior to arrival, other (fentanyl) Related Data Home Medications Medication Instructions Recorded Confirmed blood sugar diagnostic #20 each 06/12/18 08/05/20 albuterol sulfate 90 mcg/actuation 2 puff INHALATION Q4H PRN #1 09/29/18 10/04/20 aerosol inhaler inhaler metformin 850 mg tablet 850 mg PO BID #180 tab 02/01/20 10/04/20 potassium chloride 20 mEq 20 meq PO DAILY #90 tab 03/03/20 10/04/20 tablet,extended release(part/cryst) atorvastatin 40 mg tablet 40 mg PO HS #90 tab 03/31/20 10/04/20 apixaban 2.5 mg tablet 2.5 mg PO BID #180 tab 04/03/20 10/04/20 diltiazem HCl 120 mg 120 mg PO HS #90 tab-cap 09/01/20 10/04/20 capsule,extended release 24 hr hydrochlorothiazide 25 mg tablet 25 mg PO DAILY #90 tab 09/01/20 10/04/20 Previous Rx's Medication Instructions Recorded albuterol sulfate 90 mcg/actuation 2 puff INHALATION Q4H PRN #1 09/29/18 aerosol inhaler inhaler metformin 850 mg tablet 850 mg PO BID #180 tab 02/01/20 potassium chloride 20 mEq 20 meq PO DAILY #90 tab 03/03/20 tablet,extended release(part/cryst) atorvastatin 40 mg tablet 40 mg PO HS #90 tab 03/31/20 apixaban 2.5 mg tablet 2.5 mg PO BID #180 tab 04/03/20 diltiazem HCl 120 mg 120 mg PO HS #90 tab-cap 09/01/20 capsule,extended release 24 hr hydrochlorothiazide 25 mg tablet 25 mg PO DAILY #90 tab 09/01/20 Allergies Allergy/AdvReac Type Severity Reaction Status Date / Time tetanus and diphtheria Allergy unknown Verified 09/02/20 13:33 toxoids sitagliptin AdvReac Severe diarrhea Verified 09/02/20 13:33 metoprolol AdvReac Intermediate FATIGUE Verified 09/02/20 13:33 General Stated Complaint: Orthopedic CARI: 3 Review of Systems <RADHA Love - Last Filed: 10/04/20 17:36> Constitutional Constitutional: Reports as per HPI, Denies chills, Denies fever(s), Denies headache(s) and Denies weakness ENT Ears, Nose, Mouth, and Throat: Denies headache(s) Cardiovascular Cardiovascular: Reports as per HPI Respiratory Respiratory: Reports as per HPI and Denies cough Musculoskeletal Musculoskeletal: Reports as per HPI and Denies tingling Integumentary/Breasts Skin/Breast: Reports as per HPI, Denies rash and Denies wounds Neurologic Neurologic: Reports as per HPI, Denies headache(s), Denies tingling, Denies paresthesias and Denies weakness PFSH <RADHA Love - Last Filed: 10/04/20 17:36> Medical History AF (atrial fibrillation) Allergic rhinitis (02/06/14) Anemia Aortic stenosis, moderate TTE 01/17/20: Critical Aortic Stenosis (0.5 cm2, 43 mmHg) Mitral Valve Stenosis CHF (congestive heart failure) Chronic cough (07/29/14) R base rales, ?interstitial dis, [place] [facility] [place] hyper reactive, pos methacholine challenge; no response steroid inhaled; recurrent Dehydration Delirium Discharge planning issues Elevated transaminase level Essential hypertension (09/18/1960) on HCTZ 25 since 20 y/o! Gait disturbance (03/29/17) Hyperlipidemia (09/18/92) Hypomagnesemia (05/07/16) Inflammation of toe (06/17/15) L 2nd toe , Dr Snow Irregular heart beat Lichen sclerosus (12/16/14) Jennifer 2008, perineum; responds to clobetasol Moderate obstructive sleep apnea (09/24/16) CPAP since 09/2015 due to moderately severe Multiple falls (08/24/16) 04/2016; 05/2016; PT Tano Ray Muscle pain (11/14/15) buttock and ant thigh, with exertion, ? 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 Cyril Robles Obgyn; peripheral neuropathy; Goal A1c <8.0 Type II diabetes mellitus with renal manifestations micral >200 UTI (urinary tract infection) due to Enterococcus Surgical History Cataract, rgt eye (06/24/15) Dilation and curettage 1960's Extraction of cataract (06/10/15) Left eye- Dr. Morales Tonsillectomy and adenoidectomy Family History Mother , 90 Alzheimer disease Father , age 64 esophageal CA, ETOH Alcohol abuse Personal history of malignant neoplasm esophageal Brother Stroke Seizures Social History Smoking/Tobacco Use Status: Former Tobacco Use Smoking risk assessment performed?: Yes Alcohol Intake: never Drug use: Never Substance use type: does not use Adopted: No Foster care: No Number of Children: 2 current occupation: retired [employer] Current gender identity: female Other: 2 children, 1 What is your relationship status?: Panel score (0-1 are the most socially isolated patients): 0 What type of physical activity do you participate in: none Seatbelt use: always Drive intox or ride w/intox meals on wheels driver: No Water heater temp set <120 deg: Yes Working smoke detector in home: Yes Fire extinguisher in home: No Carbon monox detector in home: Yes Do you feel safe at home: Yes Do you feel safe in your relationship?: Yes Victim of emotional abuse: No Victim of sexual abuse: No Would you like helpful sources: No Exam <RADHA Love - Last Filed: 10/04/20 17:36> Const General: cooperative, healthy appearing, comfortable, no acute distress, well developed and well groomed Nutritional Appearance: average body habitus and well nourished Orientation: alert and awake Resp Effort & Inspection: normal respiratory effort, able to speak in complete sentences and no respiratory distress Auscultation: clear to auscultation bilaterally Cardio Rate: regular rate Rhythm: regular rhythm Heart Sounds: S1 normal and S2 normal GI Inspection: normal to inspection Palpation: soft, no hepatosplenomegaly and nontender Percussion: normal to percussion Auscultation: normal bowel sounds Skin General skin exam: no rashes or lesions noted Lesions: no lesions Rashes: no rashes Trauma: no lacerations or abrasions Neuro General: patient alert and patient awake Cognition: normal cognition Speech: speech normal Gait: gait abnormal (Has not been able to bear weight since the fall) Motor: muscle tone normal throughout Sensory Exam: no sensory deficits noted Extrem Left lower extremity: normal to inspection, normal capillary refill, no joint enlargement, hip/thigh (pain posteriorly, ROM not assessed secondary to pain), knee Details: normal to inspection; no tenderness and foot (2+ distal pulses, good ROM or ankle and toes); abnormal ROM and no edema Psych Appearance: grossly normal and well kempt Mental Status: mental status grossly normal Speech and Movement: speech and movement normal Course <RADHA Love - Last Filed: 10/04/20 17:36> Vital Signs Vital signs: Vital Signs Temperature 37.1 C 10/04/20 00:23 Pulse 85 10/04/20 00:23 Respiratory Rate 16 10/04/20 00:23 Pulse Oximetry 99 10/04/20 00:23 Temperature 37.1 C 10/04/20 00:23 Pulse 85 10/04/20 00:23 Respiratory Rate 16 10/04/20 00:23 Blood Pressure Position Sitting 10/04/20 00:23 Pulse Oximetry 99 10/04/20 00:23 Pain Level 4 10/04/20 00:23 Sign Out <RADHA Love - Last Filed: 10/04/20 17:36> Sign Out Data: Sign Out Comment: Care transitioned to Dr. Nelson with imaging pending. Last updated by Tierney Calvert PA at 10/04/20 01:03
--- NOTE | 2020-10-04 01:30 | RT.EKG_ITS ---
APPROVED REPORT Exam: Resting ECG Patient Location: E HR:88 bpm ECG Measurements Heart Rate 88 AXIS IL [id number] P [id number] QRSd 80 QRS 11 QT 335 T 213 QTc 405 Conclusion Atrial fibrillation...V-rate 75-115, irreg A-activity Repol abnrm suggests ischemia, anterolateral...ST dep, T neg, I aVL V2-V6 There are no significant changes compared to prior EKG performed on 09/30/2020 at 09:18. ST changes described above are minor and present previously
--- NOTE | 2020-10-04 01:51 | HPE_ITS ---
Date of service: 10/04/20 Time of Service: 01:51 Assessment and Plan Assessment and plan (1) Hip fracture: Status: Acute Assessment and plan: Hip fracture. Will consult Orthopedics. Due to anticoagulation surgery will need to be delayed, will hold DOAC in meantime. Otherwise prn analgesics and await consult. Reviewed ADs, reiterates DNR. History of Present Illness History of Present Illness Chief Complaint: hip pain Narrative: 80 female -- mechanical fall this evening on left hip. Immediate pain. En route received Fentanyl 50 with good effect. In ER findings of note for left hip fracture. Admitted for further management. Note she is on DOAC for AF. Review of Systems All systems reviewed & are unremarkable except as noted in HPI and below [facility] Medical History AF (atrial fibrillation) Allergic rhinitis (02/06/14) Anemia Aortic stenosis, moderate murmur 1997; ECHO 11/2014 Dr. Weller CHF (congestive heart failure) Chronic cough (07/29/14) R base rales, ?interstitial dis[place] [facility] [place] hyper reactive, pos methacholine challenge; no response steroid inhaled; recurrent Dehydration Delirium Discharge planning issues Elevated transaminase level Essential hypertension (09/18/1960) on HCTZ 25 since 20 y/o! Gait disturbance (03/29/17) Hyperlipidemia (09/18/92) Hypomagnesemia (05/07/16) Inflammation of toe (06/17/15) L 2nd toe , Dr Snow Irregular heart beat Lichen sclerosus (12/16/14) Jennifer 2007, perineum; responds to clobetasol Moderate obstructive sleep apnea (09/24/16) CPAP since 09/2015 due to moderately severe Multiple falls (08/24/16) 04/2016; 05/2016; PT Tano Ray Muscle pain (11/14/15) buttock and ant thigh, with exertion, ? 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 Cyril Robles, Obgyn; peripheral neuropathy; Goal A1c <8.0 Type II diabetes mellitus with renal manifestations micral >200 UTI (urinary tract infection) due to Enterococcus Surgical History Cataract, rgt eye (06/24/15) Dilation and curettage 1960's Extraction of cataract (06/10/15) Left eye- Dr. Morales Tonsillectomy and adenoidectomy Family History Mother , 90 Alzheimer disease Father , age 64 esophageal CA, ETOH Alcohol abuse Personal history of malignant neoplasm esophageal Brother Stroke Seizures Social History Smoking/Tobacco Use Status: Former Tobacco Use Smoking risk assessment performed?: Yes Alcohol Intake: never Drug use: Never Substance use type: does not use Adopted: No Foster care: No Number of Children: 2 current occupation: retired [employer] Current gender identity: female Other: 2 children, 1 What is your relationship status?: Panel score (0-1 are the most socially isolated patients): 0 What type of physical activity do you participate in: none Seatbelt use: always Drive intox or ride w/intox warehouse delivery 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: No Water heater temp set <120 deg: Yes Working smoke detector in home: Yes Fire extinguisher in home: No Carbon monox detector in home: Yes Do you feel safe at home: Yes Do you feel safe in your relationship?: Yes Victim of emotional abuse: No Victim of sexual abuse: No Would you like helpful sources: No Meds Home Medications and Allergies Home Medications Medication Instructions Recorded Confirmed Type blood sugar diagnostic #20 each 06/12/18 08/05/20 History albuterol sulfate 90 mcg/actuation 2 puff INHALATION Q4H PRN #1 09/29/18 10/04/20 Rx aerosol inhaler inhaler metformin 850 mg tablet 850 mg PO BID #180 tab 02/01/20 10/04/20 Rx potassium chloride 20 mEq 20 meq PO DAILY #90 tab 03/03/20 10/04/20 Rx tablet,extended release(part/cryst) atorvastatin 40 mg tablet 40 mg PO HS #90 tab 03/31/20 10/04/20 Rx apixaban 2.5 mg tablet 2.5 mg PO BID #180 tab 04/03/20 10/04/20 Rx diltiazem HCl 120 mg 120 mg PO HS #90 tab-cap 09/01/20 10/04/20 Rx capsule,extended release 24 hr hydrochlorothiazide 25 mg tablet 25 mg PO DAILY #90 tab 09/01/20 10/04/20 Rx Allergies Allergy/AdvReac Type Severity Reaction Status Date / Time tetanus and diphtheria Allergy unknown Verified 09/02/20 13:33 toxoids sitagliptin AdvReac Severe diarrhea Verified 09/02/20 13:33 metoprolol AdvReac Intermediate FATIGUE Verified 09/02/20 13:33 Exam Narrative Exam Narrative: 138/46, 85, 37.1, 16, 99% RA. HEENT atraumatic; neck supple; lungs clear; heart irr/irr with 2/6 sys murmur LSB; abdomen soft and NTG; extremities LLE foreshortened and everted, distal CSM intact; neuro Ox3, moves all 4s. Results Labs Result diagrams: 10/04/20 01:35 10/04/20 01:35 Last Vital Signs Temp 37.1 C 10/04/20 00:23 Pulse 85 10/04/20 00:23 Resp 16 10/04/20 00:23 BP 138/46 L 10/04/20 00:23 Pulse Ox 99 10/04/20 00:23 COVID-19 Screening Have you, or household traveled for leisure in last 14 days?: No Had IN PERSON contact w/suspected or confirmed C-19 person: No
[2020-10-04 01:52] LABS: Abs Immature Grans 0.06 10^3/uL (0.0-0.06); Absolute Basophil Count 0.09 10^3/uL (0.0-0.2); Absolute Eosinophil Count 0.32 10^3/uL (0.0-0.7); Absolute Lymphocyte Count 3.33 10^3/uL (1.2-3.4); Absolute Monocyte Count 0.64 10^3/uL (0.1-0.8); Absolute Neutrophil Count 5.31 10^3/uL (1.2-6.7); Basophils % 0.9; Eosinophils % 3.3; HCT 32.5 % (36.0-46.0); HGB 10.9 g/dL (11.2-15.7); Immature Grans % 0.6; Lymphocytes % 34.2; MCH 31.1 pg (27.0-33.0); MCHC 33.5 % (32.0-36.0); MCV 92.9 fL (80-95); MPV 12.2 fL (8.0-11.0); Monocytes % 6.6; Neutrophils % 54.4; Nucleated RBC 0 %; Platelet Count 272 10^3/uL (130-400); RDW 13.4 % (11.7-14.6); RDW-SD 45.3 fL; WBC 9.75 10^3/uL (4.4-10.8)
--- NOTE | 2020-10-04 01:52 | DI.VRAD_ITS ---
PROCEDURE INFORMATION: Exam: XR Left Femur Exam date and time: 10/04/2020 12:30 AM Age: 80 years old Clinical indication: Injury or trauma; Blunt trauma; Injury date: 10/04/20; Injury details: Fall in bathroom, landed on left hip posteriorly TECHNIQUE: Imaging protocol: XR Left femur. Views: 2 views. COMPARISON: No relevant prior studies available. FINDINGS: Bones/joints: Displaced left inter trochanteric hip fracture with comminution. No dislocation of the femoral head from the acetabulum. The femoral shaft is unremarkable. Degenerative disease is seen at the knee joint. Soft tissues: No significant soft tissue swelling appreciated. IMPRESSION: Comminuted left inter trochanteric hip fracture with displacement. Dictated and Authenticated by: Soren Gonsalez MD. Ordering:KITTY Monet MD
--- NOTE | 2020-10-04 01:54 | DI.VRAD_ITS ---
PROCEDURE INFORMATION: Exam: XR Pelvis Exam date and time: 10/04/2020 1:43 AM Age: 80 years old Clinical indication: Injury or trauma; Blunt trauma (contusions or hematomas); Injury date: 10/04/20; Injury details: Fall in bathroom, landed on left hip posteriorly TECHNIQUE: Imaging protocol: XR pelvis. Views: 1 or 2 view. COMPARISON: CR RT HIP COMPLETE AP PELVIS 06/22/2017 11:35 AM FINDINGS: Bones/joints: No pelvic fracture or diastasis. Left inter trochanteric hip fracture with comminution and displacement. Lower lumbar spine degenerative disease. Soft tissues: Unremarkable. IMPRESSION: 1. Comminuted left intertrochanteric hip fracture. Moderate displacement. 2. No pelvic fracture or diastasis. 3. Degenerative lumbar spine disease. Dictated and Authenticated by: Soren Gonsalez MD. Ordering:OSITO Scott MD
[2020-10-04 02:18] LABS: ALT 16 U/L (14-59); AST 20 U/L (15-37); Albumin 3.3 g/dL (3.4-5.0); Alkaline Phosphatase 98 U/L (46-116); Anion Gap 11.2 mmol/L (3-11); BUN 27 mg/dL (7-18); Bilirubin, Total 0.4 mg/dL (0.2-1.0); CO2 25.8 mmol/L (21.0-32.0); CREATININE 1.13 mg/dL (0.55-1.02); Calcium 9.3 mg/dL (8.5-10.1); Chloride 98 mmol/L (98-107); Glucose 176 mg/dL (74-106); Potassium 3.3 mmol/L (3.5-5.1); Sodium 135 mmol/L (136-145); Total Protein 7.1 g/dL (6.4-8.2); Troponin I < 0.05 ng/mL (<0.06)
[2020-10-04 02:50] VITALS: BP 158/58; PULSE 90; RESP 18; O2SAT 96
[2020-10-04] MEDS: POTASSIUM CHLORIDE 20 MEQ, POTASSIUM CHLORIDE 10 MEQ 30 MEQ PO (02:50)
[2020-10-04 03:04] VITALS: BP 166/67; PULSE 97; RESP 18; TEMP 36.8; O2SAT 97
[2020-10-04 03:06] VITALS: BP 166/67; PULSE 97; RESP 20; TEMP 36.8; O2SAT 97
[2020-10-04 04:25] LABS: Bilirubin Negative (Negative); Blood Negative (Negative); Clarity Clear (Clear); Glucose Negative (Negative); Ketones Negative (Negative); Leukocyte Esterase Negative (Negative); Nitrite Negative (Negative); Urobilinogen 0.2 EU/dL (Up TO 0.2); pH 6.5 (5-8)
[2020-10-04 04:27] LABS: Bacteria Negative HPF (Negative); C & S Indicated? No; Casts Negative LPF (Negative); Crystals Negative HPF (Negative); Epithelial Cells Rare HPF (Negative); Mucus Negative (Negative); RBC Negative HPF (0-2); WBC Negative HPF (0-5)
--- NOTE | 2020-10-04 06:55 | W.ORTHOCONSU ---
Date of service: 10/04/20 History of Present Illness History of Present Illness Chief Complaint: Left Hip Fracture Narrative: Leila is an 80-year-old lady who tripped last night. She reports a mechanical fall where she landed on the posterior aspect of her left hip. She was unable to ambulate afterwards and was brought into the emergency department. She was diagnosed with a comminuted intertrochanteric fracture of the left hip. She denies any significant left hip pain preceding this injury. She denied any other trauma. No loss of consciousness. No numbness and tingling. She does take apixaban for chronic atrial fibrillation, last dose being last night. Consults Consult date: 10/04/20 Requesting physician: Clinton Handley Consult Reason Left Hip Fracture Assessment and Plan Assessment and plan (1) Hip fracture, intertrochanteric: Status: Acute Assessment and plan: Leila is an 80-year-old female who suffered a mechanical fall onto the left hip. Unfortunately, she suffered a comminuted and displaced intertrochanteric fracture of the left side. There is involvement of the lesser trochanter and notable comminution of the greater trochanter with probably more of a rotational deformity. Given the nature of the fracture, I do recommend for operative fixation. This would stabilize the hip fracture and allow earlier weightbearing. Her bone quality does look poor and she does have multiple medical comorbidities which ultimately may determine the outcome. Her apixaban has been held. I would still consider this to be a moderate risk procedure for blood loss and therefore to half-life should be sufficient to proceed with surgery, therefore tomorrow morning would be very reasonable. I also ordered 1 g of tranexamic acid. There is some burgeoning evidence that TXA on admission for extracapsular hip fractures decreases blood loss, measured by need for transfusion, by 50%. At this point, based on her heart, she would have the greatest chance of success at a tertiary center where there is a cardiac team who can evaluate her severe valvular disease and offer intervention and be prepared for the complex anesthesia required to support her stenotic valve. Qualifiers: Encounter type: initial encounter Fracture alignment: displaced Fracture type: closed Laterality: left Qualified Code(s): S72.142A - Displaced intertrochanteric fracture of left femur, initial encounter for closed fracture (2) Critical aortic valve stenosis: Status: Acute Assessment and plan: Leila suffered a stroke back in December 2019. Was able to review her chart from [facility] in addition to the echocardiogram was performed at 2019. Unfortunately, this shows a critical aortic stenosis with a valve area of 0.5 cm? and gradient 43 mmHg. This classifies as critical and severe. She was offered valvular replacement at the time but she declined and did not want it done as there was concern that cannot be done endovascularly. She has been followed and does not exhibit any particular symptoms of aortic stenosis, likely due to her low demand. However, aortic stenosis in this critical realm imparts a significant perioperative risk. It is also likely that this is responsible for her stroke. I discussed this case briefly with Drew Aguirre of anesthesia as well as Dr. Walters. Possible medicine to alert him about these findings. It is imperative that a team discussion is had about these risk and about the best option for her treatment. Ultimately, this aortic stenosis will determine whether this can be done here or elsewhere or not at all. This severe aortic stenosis makes blood pressure management quite challenging and imperative to keep a higher blood pressure which does increase the complications of bleeding both during and after. Additionally, it puts her at a higher risk for cardiac demise on the table or stroke. After discussing this fully with Leila, Dr. Torres, and Drew Bergman, LIBRARY DIRECTOR. Her risk is too great to be done here safely and I recommend transfer to a tertiary center. Review of Systems All systems reviewed & are unremarkable except as noted in HPI and below [facility] Medical History (Updated 10/04/20 @ 07:32 by Charles Bailon MD) AF (atrial fibrillation) Allergic rhinitis (02/06/14) Anemia Aortic stenosis, moderate TTE 01/17/20: Critical Aortic Stenosis (0.5 cm2, 43 mmHg) Mitral Valve Stenosis CHF (congestive heart failure) Chronic cough (07/29/14) R base rales, ?interstitial dis, h/o [facility] eval 2003: hyper reactive, pos methacholine challenge; no response steroid inhaled; recurrent Dehydration Delirium Discharge planning issues Elevated transaminase level Essential hypertension (09/18/1960) on HCTZ 25 since 20 y/o! Gait disturbance (03/29/17) Hyperlipidemia (09/18/92) Hypomagnesemia (05/07/16) Inflammation of toe (06/17/15) L 2nd toe , Dr Lamotagne Irregular heart beat Lichen sclerosus (12/16/14) Jennifer 2008, perineum; responds to clobetasol Moderate obstructive sleep apnea (09/24/16) CPAP since 09/2015 due to moderately severe Multiple falls (08/24/16) 04/2016; 05/2016; PT Tano Ray Muscle pain (11/14/15) buttock and ant thigh, with exertion, ? 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 Cyril Robles, Obgyn; peripheral neuropathy; Goal A1c <8.0 Type II diabetes mellitus with renal manifestations micral >200 UTI (urinary tract infection) due to Enterococcus Surgical History Cataract, rgt eye (06/24/15) Dilation and curettage 1960's Extraction of cataract (06/10/15) Left eye- Dr. 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 Current gender identity: female Other: 2 children, 1 What is your relationship status?: Panel score (0-1 are the most socially isolated patients): 0 What type of physical activity do you participate in: none Seatbelt use: always Drive intox or ride w/intox charter driver: No Water heater temp set <120 deg: Yes Working smoke detector in home: Yes Fire extinguisher in home: No Carbon monox detector in home: Yes Do you feel safe at home: Yes Do you feel safe in your relationship?: Yes Victim of emotional abuse: No Victim of sexual abuse: No Would you like helpful sources: No Exam Narrative Exam Narrative: Laying in bed. NAD. AAOx3. LLE shortened and externally rotated. No edema. No skin defects, lacerations, or abrasions. +ADF/APF/EHL/FHL. SILT DP/SP/Tib. +DP/PT pulse. Results Last Vital Signs Temp 36.8 C 10/04/20 03:06 Pulse 97 H 10/04/20 03:06 Resp 20 10/04/20 03:06 BP 166/67 H 10/04/20 03:06 Pulse Ox 97 10/04/20 03:06 Labs Result diagrams: 10/04/20 01:35 10/04/20 01:35 Labs: Laboratory Results - last 24 hr 10/04/20 10/04/20 10/04/20 01:35 01:35 01:40 WBC 9.75 RBC 3.50 L Hgb 10.9 L Hct 32.5 L MCV 92.9 MCH 31.1 MCHC 33.5 RDW 13.4 Plt Count 272 MPV 12.2 H Immature Gran % 0.6 Neutrophils % 54.4 Lymphocytes % 34.2 Monocytes % 6.6 Eosinophils % 3.3 Basophils % 0.9 Nucleated RBC % 0 Absolute Neutrophils 5.31 Absolute Lymphocytes 3.33 Absolute Monocytes 0.64 Absolute Eosinophils 0.32 Absolute Basophils 0.09 Sodium 135 L Potassium 3.3 L Chloride 98 Carbon Dioxide 25.8 Anion Gap 11.2 H BUN 27 H Creatinine 1.13 H Estimated GFR/1.73 m2 46.10 Glucose 176 H Calcium 9.3 Total Bilirubin 0.4 AST 20 ALT 16 Alkaline Phosphatase 98 Troponin I < 0.05 Total Protein 7.1 Albumin 3.3 L Urine Color Urine Clarity Urine pH Ur Specific [place] Urine Protein Urine Ketones Urine Blood Urine Nitrite Urine Bilirubin Urine Urobilinogen Ur Leukocyte Esterase Urine RBC Urine WBC Ur Epithelial Cells Urine Crystals Urine Bacteria Urine Casts Urine Mucus Ur Culture Indicated? Urine Glucose Patient ABO/Rh B Negative Antibody Screen Negative 01/16/21 04:00 WBC RBC Hgb Hct MCV MCH MCHC RDW Plt Count MPV Immature Gran % Neutrophils % Lymphocytes % Monocytes % Eosinophils % Basophils % Nucleated RBC % Absolute Neutrophils Absolute Lymphocytes Absolute Monocytes Absolute Eosinophils Absolute Basophils Sodium Potassium Chloride Carbon Dioxide Anion Gap BUN Creatinine Estimated GFR/1.73 m2 Glucose Calcium Total Bilirubin AST ALT Alkaline Phosphatase Troponin I Total Protein Albumin Urine Color Yellow Urine Clarity Clear Urine pH 6.5 Ur Specific [place] 1.020 Urine Protein Trace H Urine Ketones Negative Urine Blood Negative Urine Nitrite Negative Urine Bilirubin Negative Urine Urobilinogen 0.2 Ur Leukocyte Esterase Negative Urine RBC Negative Urine WBC Negative Ur Epithelial Cells Rare Urine Crystals Negative Urine Bacteria Negative Urine Casts Negative Urine Mucus Negative Ur Culture Indicated? No Urine Glucose Negative Patient ABO/Rh Antibody Screen Imaging Imaging Studies: X-ray of the left femur and hip demonstrates a comminuted and displaced intertrochanteric femur fracture. There is some communition at the lesser trochaneter and extending distally for a few cm without a clear propagation distally down the shaft. Enthesophyte seen over the greater trochanter. Minmal arthritis changes of the hip.
[2020-10-04] MEDS: Normal Saline Flush 10 ML SYR IVP ×4 (08:05→13:31)
[2020-10-04] MEDS: Potassium Chloride 20 MEQ TABCR PO (08:06)
[2020-10-04] MEDS: hydroCHLOROthiazide 25 MG TAB PO (08:06)
[2020-10-04] MEDS: metFORMIN 850 MG TAB PO (08:06)
[2020-10-04 08:10] VITALS: BP 148/66; PULSE 81; RESP 16; TEMP 37.2; O2SAT 99
[2020-10-04] MEDS: ACETAMINOPHEN 1,000 MG/100 ML BTL 400 MG IVPB (09:16)
[2020-10-04 09:43] LABS: Magnesium 1.3 mg/dL (1.8-2.4)
[2020-10-04] MEDS: MORPHine 4 MG/ML SYR IVP (10:19)
--- NOTE | 2020-10-04 11:26 | PDOC.ANES ---
Date of service: 10/04/20 Time of Service: 08:00 Anesthesia Note Report Anesthesia Note: Was asked to evaluate Mrs. Moore in regards to anesthesia for hip fracture that sustained from a fall at home last night. Of biggest concern is that her echo performed in December demonstrated critical aortic stenosis (MATTEO 0.4, peak gradient 63 mmhg, and mean 43 mmhg), she also has moderate mitral stenosis (peak gradient 10 mmhg), atrial fibrillation (on diltiazem) and stroke (on apixaban). functionally she is doing well, but she does not sound like she can exert herself. I discussed with her the risks of anesthesia and surgery in regards to her health history and expressed that she is likely better served to have anesthesia at a facility with more resources for her. She agrees and had been thinking the same thing given her severe valve disease.
[2020-10-04] MEDS: Insulin Aspart 300 UNITS/3 ML PEN SC (12:07)
--- NOTE | 2020-10-04 12:13 | DSE_ITS ---
Date of service: 10/04/20 Time of Service: 12:13 DS: Diagnosis Discharge Diagnosis (1) Hip fracture, intertrochanteric: Status: Acute (2) Critical aortic valve stenosis: Status: Acute (3) AF (atrial fibrillation): Status: Chronic Discharge Plan Disposition Patient Disposition: [facility] Condition: Fair Discharge Details Reason For Visit: HIP FRACTURE Admit Date/Time: 10/04/20 02:00 Admit Provider: Clinton Handley Attending Provider: Clinton Handley Primary Care Provider: Jack Martinez [facility] Course Hospital Course: This is an 80 yo female with a PMH of PAF, stroke in 12/2019, aortic and mitral valve disease, DM2, HTN, asthma, TACHO, HLD. She presented to the [facility] ED shortly after midnight on the night of admission and subsequent transfer. She endorsed falling onto her posterior left hip. She reported pain that kept her from moving to a phone for appx 15 mins. No syncope, CP, palpitations or any noted preceding symptoms. In the ED she was found to have a left intertrochanteric comminuted, displaced fx. Orthopedic surgery and anesthesia were consulted. Her lab values were: Hgb 10.9, normal WBC and platelets. Na 135, K 3.3, BUN 27, creatinine 1.13. UA w/o evidence of infection. She was given a dose of transexemic acid and a total of 50 meq of oral KCl. Given her severe aortic stenosis (valve area of 0.5 cm2 with a gradient of 43 mmHg she will be transferred to [facility] where onsite cardiology will be available. She is in agreement with the transfer. Home Meds and New Rx's Prescriptions: No Action albuterol sulfate [ProAir HFA] 90 mcg/actuation HFA aerosol inhaler 2 puff Inhalation Q4H PRN Qty: 1 RF: 6 (DME) Blood Glucose Test strip See Dose Instructions .ROUTE .MEDSUPPLY Qty: 20 RF: 0 metformin [Glucophage] 850 mg tablet 850 mg PO BID Qty: 180 RF: 3 potassium chloride [Klor-Con M20] 20 mEq tablet,ER particles/crystals 20 meq PO DAILY Qty: 90 RF: 3 atorvastatin 40 mg tablet 40 mg PO HS Qty: 90 RF: 3 apixaban 2.5 mg tablet 2.5 mg PO BID Qty: 180 RF: 3 diltiazem HCl 120 mg capsule,extended release 24hr 120 mg PO HS Qty: 90 RF: 3 hydrochlorothiazide 25 mg tablet 25 mg PO DAILY Qty: 90 RF: 3 Discharge Instructions Activity:: Non wt bearing on LLE Diet:: NPO after MN Discharge Orders Discharge Orders: Discharge Order (Routine); Ordered 10/04/20 Ordered By: Hakeem Torres DS: Summary Status at Discharge Functional status at discharge: bed bound Overall status at discharge: patient is not back to baseline Mental Status: mental status grossly normal Speech and Movement: speech and movement normal Mood: congruent mood Affect: normal affect Exam Const General: cooperative and no acute distress Nutritional Appearance: thin Orientation: alert and oriented x3 HENMT Head: normocephalic and atraumatic Resp Effort & Inspection: normal respiratory effort Auscultation: clear to auscultation bilaterally Cardio Other: Irreg irreg. + soft systolic murmur GI Palpation: soft and nontender Extrem General: no pedal edema, no calf tenderness and other (LLE foreshortened and ext rotated) Psych Appearance: grossly normal Mental Status: mental status grossly normal Speech and Movement: speech and movement normal Mood: congruent mood Affect: normal affect DS: Data Vitals/I&O Vitals and I&O: Vital Signs Temperature 37.2 C 10/04/20 08:10 Temperature Source Tympanic 10/04/20 08:10 Pulse 81 10/04/20 08:10 Pulse Rhythm Irregular 10/04/20 07:40 Respiratory Rate 16 10/04/20 08:10 Respiratory Effort Non-Labored 10/04/20 07:40 Respiratory Depth Normal 10/04/20 07:40 Respiratory Pattern Normal 10/04/20 07:40 Blood Pressure 148/66 H 10/04/20 08:10 Blood Pressure Position Sitting 10/04/20 00:23 Pulse Oximetry 99 10/04/20 08:10 Oxygen Delivery Method Room Air 10/04/20 08:10 Oxygen Flow Rate 0 10/04/20 08:10 Pain Level 8 10/04/20 10:19 Intake & Output 10/03/20 10/04/20 10/04/20 23:59 11:59 23:59 Intake Total 510 / 510 Output Total 650 / 650 Balance -140 / -140 Weight 48.988 kg Intake: IV 170 / 170 Oral 340 / 340 Output: Urine 650 / 650 Other: Urine Color Yellow Urine Appearance Clear Comment attempted x 1 for siddiqi insertion without success due to anatomy and discomfort. Discussed with patient and she wants to try to use bed khoury before having to use siddiqi catheter. Dr. Nelson aware. Pt did attempt to use bedpan but did not have any urine voided. Data Completed and Pending Labs on day of discharge: Labs from last 24 hours 10/04/20 10/04/20 10/04/20 Unknown 04:00 01:53 WBC RBC Hgb Hct MCV MCH MCHC RDW Plt Count MPV Immature Gran % Neutrophils % Lymphocytes % Monocytes % Eosinophils % Basophils % Nucleated RBC % Absolute Neutrophils Absolute Lymphocytes Absolute Monocytes Absolute Eosinophils Absolute Basophils Sodium Potassium Chloride Carbon Dioxide Anion Gap BUN Creatinine Estimated GFR/1.73 m2 Glucose Calcium Magnesium Total Bilirubin AST ALT Alkaline Phosphatase Troponin I Total Protein Albumin Urine Color Yellow Urine Clarity Clear Urine pH 6.5 Ur Specific [place] 1.020 Urine Protein Trace H Urine Ketones Negative Urine Blood Negative Urine Nitrite Negative Urine Bilirubin Negative Urine Urobilinogen 0.2 Ur Leukocyte Esterase Negative Urine RBC Negative Urine WBC Negative Ur Epithelial Cells Rare Urine Crystals Negative Urine Bacteria Negative Urine Casts Negative Urine Mucus Negative Ur Culture Indicated? No Urine Glucose Negative COVID-19 Source Pending SARS-CoV-2 (PCR) Pending Pending Nasopharyn COVID-19 PCR Pending Ref Test Perform Site Pending Patient ABO/Rh Antibody Screen 10/04/20 10/04/20 10/04/20 01:40 01:35 01:35 WBC 9.75 RBC 3.50 L Hgb 10.9 L Hct 32.5 L MCV 92.9 MCH 31.1 MCHC 33.5 RDW 13.4 Plt Count 272 MPV 12.2 H Immature Gran % 0.6 Neutrophils % 54.4 Lymphocytes % 34.2 Monocytes % 6.6 Eosinophils % 3.3 Basophils % 0.9 Nucleated RBC % 0 Absolute Neutrophils 5.31 Absolute Lymphocytes 3.33 Absolute Monocytes 0.64 Absolute Eosinophils 0.32 Absolute Basophils 0.09 Sodium Potassium Chloride Carbon Dioxide Anion Gap BUN Creatinine Estimated GFR/1.73 m2 Glucose Calcium Magnesium 1.3 L Total Bilirubin AST ALT Alkaline Phosphatase Troponin I Total Protein Albumin Urine Color Urine Clarity Urine pH Ur Specific [place] Urine Protein Urine Ketones Urine Blood Urine Nitrite Urine Bilirubin Urine Urobilinogen Ur Leukocyte Esterase Urine RBC Urine WBC Ur Epithelial Cells Urine Crystals Urine Bacteria Urine Casts Urine Mucus Ur Culture Indicated? Urine Glucose COVID-19 Source SARS-CoV-2 (PCR) Nasopharyn COVID-19 PCR Ref Test Perform Site Patient ABO/Rh B Negative Antibody Screen Negative 10/04/20 01:35 WBC RBC Hgb Hct MCV MCH MCHC RDW Plt Count MPV Immature Gran % Neutrophils % Lymphocytes % Monocytes % Eosinophils % Basophils % Nucleated RBC % Absolute Neutrophils Absolute Lymphocytes Absolute Monocytes Absolute Eosinophils Absolute Basophils Sodium 135 L Potassium 3.3 L Chloride 98 Carbon Dioxide 25.8 Anion Gap 11.2 H BUN 27 H Creatinine 1.13 H Estimated GFR/1.73 m2 46.10 Glucose 176 H Calcium 9.3 Magnesium Total Bilirubin 0.4 AST 20 ALT 16 Alkaline Phosphatase 98 Troponin I < 0.05 Total Protein 7.1 Albumin 3.3 L Urine Color Urine Clarity Urine pH Ur Specific [place] Urine Protein Urine Ketones Urine Blood Urine Nitrite Urine Bilirubin Urine Urobilinogen Ur Leukocyte Esterase Urine RBC Urine WBC Ur Epithelial Cells Urine Crystals Urine Bacteria Urine Casts Urine Mucus Ur Culture Indicated? Urine Glucose COVID-19 Source SARS-CoV-2 (PCR) Nasopharyn COVID-19 PCR Ref Test Perform Site Patient ABO/Rh Antibody Screen [facility] Medical History AF (atrial fibrillation) Allergic rhinitis (02/06/14) Anemia Aortic stenosis, moderate TTE 01/17/20: Critical Aortic Stenosis (0.5 cm2, 43 mmHg) Mitral Valve Stenosis CHF (congestive heart failure) Chronic cough (07/29/14) R base rales, ?interstitial dis, h/o [facility] eval 2003: hyper reactive, pos methacholine challenge; no response steroid inhaled; recurrent Dehydration Delirium Discharge planning issues Elevated transaminase level Essential hypertension (09/18/1960) on HCTZ 25 since 20 y/o! Gait disturbance (03/29/17) Hyperlipidemia (09/18/92) Hypomagnesemia (05/07/16) Inflammation of toe (06/17/15) L 2nd toe , Dr Snow Irregular heart beat Lichen sclerosus (12/16/14) Jennifer 2007, perineum; responds to clobetasol Moderate obstructive sleep apnea (09/24/16) CPAP since 09/2015 due to moderately severe Multiple falls (08/24/16) 04/2016; 05/2016; PT Tano Ray Muscle pain (11/14/15) buttock and ant thigh, with exertion, ? 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 Cyril Robles, Obgyn; peripheral neuropathy; Goal A1c <8.0 Type II diabetes mellitus with renal manifestations micral >200 UTI (urinary tract infection) due to Enterococcus Surgical History Cataract, rgt eye (06/24/15) Dilation and curettage 1960's Extraction of cataract (06/10/15) Left eye- Dr. 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
[2020-10-04 12:25] LABS: Source Nasopharynx
[2020-10-04 13:03] LABS: COVID-19 PCR Negative (Negative); Influenza A PCR Negative (Negative); Influenza B PCR Negative (Negative); RSV PCR Negative (Negative)
[2020-10-04] MEDS: Normal Saline 1,000 ML 75 ML IV (13:31)
[2020-10-05 01:41] LABS: COVID-19 RT-PCR UVMMC Result Negative (Negative)
== END 2020-10-04 14:35 | disposition short-term general hospital (02) | DRG 536 ==
LOC: ER 01:40 → MS 02:50
PROVIDERS: Family Medicine; Admitting Provider General Practice; Emergency Provider Emergency Medicine; PCP Family Medicine; Visit Provider General Practice
DX: S72.142A Displaced intertrochanteric fracture of left femur, initial encounter for closed fracture (principal); I48.0 Paroxysmal atrial fibrillation; I08.0 Rheumatic disorders of both mitral and aortic valves; E11.9 Type 2 diabetes mellitus without complications; G47.33 Obstructive sleep apnea (adult) (pediatric); E78.5 Hyperlipidemia, unspecified; J45.909 Unspecified asthma, uncomplicated; W01.0XXA Fall on same level from slipping, tripping and stumbling without subsequent striking against object, initial encounter; D64.9 Anemia, unspecified; E87.6 Hypokalemia; I11.0 Hypertensive heart disease with heart failure; I50.9 Heart failure, unspecified; E11.40 Type 2 diabetes mellitus with diabetic neuropathy, unspecified; E11.29 Type 2 diabetes mellitus with other diabetic kidney complication; Z86.73 Personal history of transient ischemic attack (TIA), and cerebral infarction without residual deficits
CPT/HCPCS: 36415; 51702; 73552; 80053; 86850; 86900; 86901; 93005; 96374; 99221; 99222; 99239; 99253; 99285; U0003; 72170; 81003; 81015; 83735; 84484; 85025; 93010; 99218; J0131; J2270

== ENCOUNTER 2020-12-04 10:36 | Outpatient (CLI) | payer MEDICARE, OTHER, SELFPAY ==
--- NOTE | 2020-12-04 10:30 | RT.EKG_ITS ---
APPROVED REPORT Exam: Resting ECG Patient Location: O HR:96 bpm ECG Measurements Heart Rate 96 AXIS DC [id number] P [id number] QRSd 70 QRS 10 QT 333 T -6 QTc 421 Conclusion Atrial fibrillation...V-rate 79-114, irreg A-activity Anteroseptal infarct, old...Q >40mS, V1-V2
== END 2020-12-04 10:37 | disposition home or self-care (01) ==
LOC: DI.KIM 10:37
PROVIDERS: PCP Family Medicine; Visit Provider Family Medicine
DX: R07.9 Chest pain, unspecified (principal)
CPT/HCPCS: 93010

== ENCOUNTER 2020-12-15 15:33 | Outpatient (REF) | payer MEDICARE, SELFPAY ==
[2020-12-15 16:16] LABS: Anion Gap 7.7 mmol/L (3-11); BUN 24 mg/dL (7-18); CO2 28.3 mmol/L (21.0-32.0); Calcium 9.8 mg/dL (8.5-10.1); Chloride 98 mmol/L (98-107); Estimated GFR 53.08 (mL/min/1.73m2); Glucose 315 mg/dL (74-106); Potassium 5.1 mmol/L (3.5-5.1); Sodium 134 mmol/L (136-145)
== END 2020-12-15 15:34 | disposition home or self-care (01) ==
LOC: LBN 15:33
PROVIDERS: PCP Family Medicine; Visit Provider Family Medicine
DX: I10 Essential (primary) hypertension (principal)
CPT/HCPCS: 80048

== ENCOUNTER 2021-04-03 09:40 | Emergency (ER) | payer MEDICARE, OTHER, SELFPAY ==
[2021-04-03] VITALS (14 sets, daily range): BP systolic 122–144; BP diastolic 61–70; PULSE 74–110; RESP 12–27; TEMP 36.3; O2SAT 98–100
--- NOTE | 2021-04-03 09:45 | RT.EKG_ITS ---
APPROVED REPORT Exam: Resting ECG Reason for Exam: fall Patient Location: E HR:95 bpm ECG Measurements Heart Rate 95 AXIS SD [id number] P [id number] QRSd 81 QRS 10 QT 358 T -53 QTc 451 Conclusion Atrial fibrillation...V-rate 65-143, irreg A-activity Anterior infarct, old...Q >40mS, abnormal ST-T, V2-V5. Afib. No STEMI. I have reviewed and interpreted ECG and agree with software generated interpretation.
--- NOTE | 2021-04-03 09:45 | DI.CT_ITS ---
Exam(s) CT THORACIC LUMBAR SPINE WO EXAM: CT THORACIC LUMBAR SPINE WO CLINICAL HISTORY: fall back pain. TECHNIQUE: Imaging Protocol: Axial computed tomography images with coronal and sagittal reformatted images were created and reviewed. Field of view includes lower cervical region through the tip of th e coccyx. COMPARISON: CR CHEST 2 VIEWS PA,LAT from 03/10/2018 CR CHEST 2 VIEWS PA,LAT from 03/10/2018 FINDINGS: Bones: No acute fractures are seen. No old compression fractures the alignment of the spine is mary l including the cervicothoracic junction. Degenerative disc changes consistent with the patient's age. Soft tissues: The visualized paraspinal soft tissues are unremarkable. No paraspinal hematoma. No p neumothorax is visible.. IMPRESSION: No acute abnormality. RADIATION DOSE DELIVERED: 651.56mGy.cm Total DLP DATA REPOSITORY: All CT scans at this facility are submitted to the National Radiology Data Registry (NRDR) Dose Index Registry (DIR) with the [employer] (A[employer]). RADIATION OPTIMIZATION: All CT scans at this facility use at least one of these dose optimization te chniques: automated exposure control; mA and/or kV adjustment per patient size (includes targeted exa ms where dose is matched to clinical indication); or iterative reconstruction.
--- NOTE | 2021-04-03 09:45 | DI.CT_ITS ---
Exam(s) CT HEAD CERVICAL SPINE WO EXAM: CT HEAD CERVICAL SPINE WO CLINICAL HISTORY: fall head injury. TECHNIQUE: Imaging Protocol: Axial computed tomography images with coronal and sagittal reformatted images were created and reviewed COMPARISON: CT CT HEAD CERVICAL SPINE WO from 10/14/2019 FINDINGS: Head CT Ventricles and Extra axial spaces: Normal in size and morphology for the patient's age. Hemorrhage: None. Cerebral parenchyma: Atrophy and white matter changes of small vessel disease. Old infarct left beata etal lobe. Midline shift: None. Brainstem/Cerebellum: Normal. Calvarium: Normal. Visualized Paranasal sinuses/Mastoids: Clear. Scalp: Gauze overlying the scalp superiorly. Soft tissue swelling left posterior parietal region. Cervical Spine CT BONES: Vertebral body heights are maintained. Alignment is normal. There is no evidence of acute frac ture. Degenerative disc changes and facet degenerative changes are seen . SOFT TISSUES: No paraspinal hematoma. The airway appears intact. No pneumothorax is seen at the lung apices. IMPRESSION: Head CT: Old left parietal infarct. No acute abnormality. C-spine CT: Degenerative changes, no acute abnormality. RADIATION DOSE DELIVERED: 1,485.53mGy.cm Total DLP DATA REPOSITORY: All CT scans at this facility are submitted to the National Radiology Data Registry (NRDR) Dose Index Registry (DIR) with the [employer] (ACR). RADIATION OPTIMIZATION: All CT scans at this facility use at least one of these dose optimization te chniques: automated exposure control; mA and/or kV adjustment per patient size (includes targeted exa ms where dose is matched to clinical indication); or iterative reconstruction.
--- NOTE | 2021-04-03 09:52 | W.ED.GENAD ---
Discharge Plan Disposition Patient Disposition: HOME Condition: Stable Discharge Details Clinical Impression: Head injury, Laceration of scalp, Skin tear of left elbow without complication Primary Care Provider: Jack Martinez ED Provider: Arturo Bennett Home Meds and New Rx's Prescriptions: Continued albuterol sulfate [ProAir HFA] 90 mcg/actuation HFA aerosol inhaler 2 puff Inhalation Q4H PRN Qty: 1 RF: 6 diclofenac sodium [Voltaren Arthritis Pain] 1 % gel 2 g topical QID RF: 0 mirtazapine 7.5 mg tablet 7.5 mg PO QHS Qty: 90 RF: 0 Lantus Solostar U-100 Insulin 100 unit/mL (3 mL) insulin pen 10 unit subcut QPM Qty: 15 RF: 3 (DME) pen needle, diabetic [Pen Needle] 31 gauge x 5/16 needle See Rx Instructions .ROUTE .MEDSUPPLY Qty: 100 RF: 3 (DME) Blood Glucose Test strip See Dose Instructions .ROUTE .MEDSUPPLY Qty: 20 RF: 0 atorvastatin 40 mg tablet 40 mg PO HS Qty: 90 RF: 3 apixaban 2.5 mg tablet 2.5 mg PO BID Qty: 180 RF: 3 diltiazem HCl 120 mg capsule,extended release 24hr 120 mg PO HS Qty: 90 RF: 3 metformin [Glucophage] 850 mg tablet 850 mg PO BID Qty: 180 RF: 3 Discharge Instructions Instructions: Head Injury (ED), Staple Care (ED), Skin Tear (ED) Additional Instructions: CT imaging of your head, cervical, thoracic, lumbar spine are all unremarkable. Skin tear was cleaned and dressed. Scalp laceration was repaired with a single staple. Staple needs to be removed in 5 days. Please watch for new or worsening symptoms and return to the ER for any concerns. Change antibiotic dressing daily. Cool compresses every 2 hours for 20 minutes. Eriz-zgi-hfwkhii Tylenol as directed for discomfort. I would like you to reach out to your primary care provider later today or on Tuesday to discuss your ER visit and need for outpatient reevaluation Medical Decision Making 81-year-old female, on apixaban, presents for mechanical slip and fall while using her walker here on hospital property in a parking lot. Patient states that her wheel got caught in a cracker on a piece of uneven ground. She has a small laceration to the back of her head as well as a skin tear to her left elbow. Tetanus status is up-to-date. Will obtain EKG to rule out arrhythmia, low suspicion given she was asymptomatic prior to the fall. Will obtain CBC, CMP, CT imaging of her head, C-spine, thoracic spine and lumbar spine. Do not need to update tetanus status. Skin tear will be thoroughly cleaned and dressed appropriately. I will need to repair the laceration to her scalp. Head and C-spine CT negative per radiology. I removed her c-collar and then set her up in a 45 degree angle, she reports feeling comfortable. Skin tear cleaned and dressed, patient tolerated this well. A single staple applied to her scalp, patient tolerated this well. CT imaging of thoracic and lumbar spine unremarkable per radiology. Discussed findings with patient and friends. Patient feels well, comfortable discharge. Will trial ambulated her here in the ER using a walker prior to discharge. Patient is able to ambulate slowly but steadily using a walker, at baseline per patient. She has no additional questions or concerns and is comfortable discharge. This documentation was generated using [employer] system, please disregard any oddities of phrase or misspellings. Medical Records Medical records reviewed: Yes I reviewed the patient's medical records. Imaging Data Radiologic Study: Attestation: I personally reviewed and interpreted this imaging study as follows: Imaging: CT Scan Radiologist's impression: Head CT Ventricles and Extra axial spaces: [Normal in size and morphology for the patient's age.] [] Hemorrhage: [None.] [] Cerebral parenchyma: [Atrophy and white matter changes of small vessel disease. Old infarct left parietal lobe. Midline shift: [None.] [] Brainstem/Cerebellum: [Normal.] [] Calvarium: [Normal.] [] Visualized Paranasal sinuses/Mastoids: [Clear.] [] Scalp: Gauze overlying the scalp superiorly. Soft tissue swelling left posterior parietal region. Cervical Spine CT BONES: [Vertebral body heights are maintained.] [[Alignment is normal.] [There is no evidence of acute fracture.] Degenerative disc changes and facet degenerative changes are seen [.] SOFT TISSUES: [No paraspinal hematoma. The airway appears intact.] No pneumothorax is seen at the lung apices. IMPRESSION [Head CT: Old left parietal infarct. No acute abnormality.][] [C-spine CT: Degenerative changes, no acute abnormality Radiologic Study #2: Attestation: I personally reviewed and interpreted this imaging study as follows: Imaging: CT Scan Radiologist's impression: CT THORACIC LUMBAR SPINE WO CLINICAL HISTORY fall back pain. [] TECHNIQUE Imaging Protocol: Axial computed tomography images with coronal and sagittal reformatted images were created and reviewed. Field of view includes lower cervical region through the tip of the coccyx. COMPARISON [CR CHEST 2 VIEWS PA,LAT from 03/10/2018 CR CHEST 2 VIEWS PA,LAT from 03/10/2018] [] FINDINGS Bones: [No acute fractures are seen.] No old compression fractures [the alignment of the spine is normal including the cervicothoracic junction.] [] Degenerative disc changes consistent with the patient's age. Soft tissues: [The visualized paraspinal soft tissues are unremarkable.] No paraspinal hematoma. No pneumothorax is visible.. IMPRESSION [No acute abnormality. Lab Data Lab results reviewed: Yes I reviewed the patient's lab results. Labs: Laboratory Tests Range/Units 04/03/21 04/03/21 04/03/21 10:00 10:00 11:04 WBC (4.4-10.8) 10^3/uL 10.75 RBC (3.93-5.22) 10^6/uL 3.94 Hgb (11.2-15.7) g/dL 10.9 L Hct (36.0-46.0) % 34.6 L MCV (80-95) fL 87.8 MCH (27.0-33.0) pg 27.7 MCHC (32.0-36.0) % 31.5 L RDW (11.7-14.6) % 17.1 H Plt Count (130-400) 10^3/uL 285 MPV (8.0-11.0) fL 10.7 Immature Gran % 0.6 Neutrophils % 63.7 Lymphocytes % 25.8 Monocytes % 7.3 Eosinophils % 1.6 Basophils % 1.0 Nucleated RBC % % 0 Absolute Neutrophils (1.2-6.7) 10^3/uL 6.85 H Absolute Lymphocytes (1.2-3.4) 10^3/uL 2.77 Absolute Monocytes (0.1-0.8) 10^3/uL 0.79 Absolute Eosinophils (0.0-0.7) 10^3/uL 0.17 Absolute Basophils (0.0-0.2) 10^3/uL 0.11 Sodium (136-145) mmol/L 139 Potassium (3.5-5.1) mmol/L 4.5 Chloride (98-107) mmol/L 103 Carbon Dioxide (21.0-32.0) mmol/L 26.9 Anion Gap (3-11) mmol/L 9.1 BUN (7-18) mg/dL 27 H Creatinine (0.55-1.02) mg/dL 1.0 Estimated GFR/1.73 m2 (mL/min/1.73m2) 52.95 Glucose (74-106) mg/dL 255 H Hemoglobin A1c (<5.7) % 8.9 H Calcium (8.5-10.1) mg/dL 9.5 Total Bilirubin (0.2-1.0) mg/dL 0.4 AST (15-37) U/L 14 L ALT (14-59) U/L 14 Alkaline Phosphatase (46-116) U/L 85 Total Protein (6.4-8.2) g/dL 7.4 Albumin (3.4-5.0) g/dL 3.4 ECG Data Attestation: I personally reviewed and interpreted this ECG (s) as follows: Interpretation: Please see official report by Dr. Godinez. Atrial fibrillation, ventricular of 95. No STEMI. HPI General Mode of arrival: ambulatory. Date/Time Provider Initiated Documentation: 04/03/21 09:52. Limitations to Documentation: no limitations. Information obtained by: patient (and friend). HPI Narrative: This is an 81-year-old female, past medical history of aortic stenosis, asthma, diabetes, renal insufficiency, hypertension, anemia, A. fib, CHF, recent hip surgery, not currently anticoagulated, presenting to the ER for evaluation of head injury status post fall. Patient was coming to the hospital to have a routine outpatient lab draw, ambulating with her walker, but unfortunately came to the ER entryway and not the other door. She chose this door because there were no stairs and she has a hard time ambulating at baseline. Unfortunately she was told to go to the other entryway, and in the process of walking on the uneven pavement, states that her wheel on her walker got caught causing her to fall. She states that she struck her head, has a laceration, headache, back pain, skin tear to her elbow, but denies LOC, visual changes, any symptoms prior to the fall, chest pain, abdominal pain, incontinence, numbness, tingling, weakness, pain in her legs or hips. Patient was assisted by ER staff in the parking lot, wounds dressed, c-collar applied, and placed onto the ER stretcher via a backboard. Upon reviewing her med rec, it would appear that she is on apixaban. Related Data Home Medications Medication Instructions Recorded Confirmed blood sugar diagnostic #20 each 06/12/18 03/03/21 albuterol sulfate 90 mcg/actuation 2 puff INHALATION Q4H PRN #1 09/29/18 04/03/21 aerosol inhaler inhaler atorvastatin 40 mg tablet 40 mg PO HS #90 tab 03/31/20 04/03/21 apixaban 2.5 mg tablet 2.5 mg PO BID #180 tab 04/03/20 04/03/21 diltiazem HCl 120 mg 120 mg PO HS #90 tab-cap 09/01/20 04/03/21 capsule,extended release 24 hr diclofenac sodium 1 % topical gel 2 g TOPICAL QID 01/29/21 04/03/21 mirtazapine 7.5 mg tablet 7.5 mg PO QHS #90 tab 01/29/21 04/03/21 insulin glargine 100 unit/mL (3 10 unit SUBCUT QPM #15 ml 03/03/21 04/03/21 mL) subcutaneous pen pen needle, diabetic 31 gauge x #100 ea 03/03/21 03/03/2102/01 metformin 850 mg tablet 850 mg PO BID #180 tab 03/10/21 04/03/21 Previous Rx's Medication Instructions Recorded albuterol sulfate 90 mcg/actuation 2 puff INHALATION Q4H PRN #1 09/29/18 aerosol inhaler inhaler atorvastatin 40 mg tablet 40 mg PO HS #90 tab 03/31/20 apixaban 2.5 mg tablet 2.5 mg PO BID #180 tab 04/03/20 diltiazem HCl 120 mg 120 mg PO HS #90 tab-cap 09/01/20 capsule,extended release 24 hr mirtazapine 7.5 mg tablet 7.5 mg PO QHS #90 tab 01/29/21 insulin glargine 100 unit/mL (3 10 unit SUBCUT QPM #15 ml 03/03/21 mL) subcutaneous pen pen needle, diabetic 31 gauge x #100 ea 03/03/2102/01 metformin 850 mg tablet 850 mg PO BID #180 tab 03/10/21 Allergies Allergy/AdvReac Type Severity Reaction Status Date / Time cefazolin Allergy Intermediate itching Verified 04/03/21 10:15 and morbilliform rash torso, arms, thighs epinephrine Allergy Unknown per [facility] Verified 04/03/21 10:15 note dated 12/02/20 cgc tetanus and diphtheria Allergy unknown Verified 04/03/21 10:15 toxoids sitagliptin AdvReac Severe diarrhea Verified 04/03/21 10:15 metoprolol AdvReac Intermediate FATIGUE Verified 04/03/21 10:15 General CARI: 3 Review of Systems Constitutional Constitutional: Denies fatigue and Reports headache(s) Eyes Eyes: Denies change in vision ENT Ears, Nose, Mouth, and Throat: Reports headache(s) and Reports neck pain Cardiovascular Cardiovascular: Denies chest pain and Denies dyspnea Respiratory Respiratory: Denies dyspnea Gastrointestinal Gastrointestinal: Denies abdominal pain, Denies nausea and Denies vomiting Musculoskeletal Musculoskeletal: Reports back pain, Reports neck pain, Denies numbness and Denies tingling Integumentary/Breasts Skin/Breast: Denies rash Neurologic Neurologic: Reports headache(s), Denies numbness, Denies tingling and Reports disequilibrium (baseline) Endocrine Endocrine: Denies fatigue Hematologic/Lymphatic Hematologic/Lymphatic: Denies easy bleeding and Reports easy bruising [facility] Medical History AF (atrial fibrillation) Allergic rhinitis (02/06/14) Anemia Aortic stenosis, moderate TTE 01/17/20: Critical Aortic Stenosis (0.5 cm2, 43 mmHg) Mitral Valve Stenosis CHF (congestive heart failure) Chronic cough (07/29/14) R base rales, ?interstitial dis, h/o [facility] eval 2003: hyper reactive, pos methacholine challenge; no response steroid inhaled; recurrent Dehydration Delirium Discharge planning issues Elevated transaminase level Essential hypertension (09/18/1960) on HCTZ 25 since 20 y/o! Gait disturbance (03/29/17) Hyperlipidemia (09/18/92) Hypomagnesemia (05/07/16) Inflammation of toe (06/17/15) L 2nd toe , Dr Snow Irregular heart beat Lichen sclerosus (12/16/14) Jennifer 2007, perineum; responds to clobetasol Moderate obstructive sleep apnea (09/24/16) CPAP since 09/2015 due to moderately severe Multiple falls (08/24/16) 04/2016; 05/2016; PT Tano Ray Muscle pain (11/14/15) buttock and ant thigh, with exertion, ? 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 Cyril Robles, Obgyn; peripheral neuropathy; Goal A1c <8.0 Type II diabetes mellitus with renal manifestations micral >200 UTI (urinary tract infection) due to Enterococcus Weight loss Surgical History Cataract, rgt eye (06/24/15) Dilation and curettage 1960's Extraction of cataract (06/10/15) Left eye- Dr. Morales Status post hip surgery (~09/2020) LEFT intra trochanteric fx s/p cephalo medullary nailing Tonsillectomy and adenoidectomy Family History Mother , 90 Alzheimer disease Father , age 64 esophageal CA, ETOH Alcohol abuse Personal history of malignant neoplasm esophageal Brother Stroke Seizures Social History Smoking/Tobacco Use Status: Former Tobacco Use Smoking risk assessment performed?: Yes Alcohol Intake: never Drug use: Never Substance use type: does not use Adopted: No Foster care: No Number of Children: 2 current occupation: retired [employer] Current gender identity: female Other: 2 children, 1 What is your relationship status?: Panel score (0-1 are the most socially isolated patients): 0 What type of physical activity do you participate in: none Seatbelt use: always Drive intox or ride w/intox local combination truck driver: No Water heater temp set <120 deg: Yes Working smoke detector in home: Yes Fire extinguisher in home: No Carbon monox detector in home: Yes Do you feel safe at home: Yes Do you feel safe in your relationship?: Yes Victim of emotional abuse: No Victim of sexual abuse: No Would you like helpful sources: No Exam Const General: cooperative and healthy appearing Orientation: alert, awake and oriented x3 HENMT Head: normal to inspection and normocephalic Head images: 1. Hematoma, centrally there is a 0.5 cm well approximated laceration. Slight oozing. No crepitus or foreign body. Ears: external ears normal, TM's normal bilaterally and EAC's normal Face and sinus: normal facial exam Mouth: moist mucous membranes Eyes General: appearance normal, both eyes and all related structures Alignment and Position: alignment normal Periorbital: periorbital findings normal Eyelids: eyelids normal Conjunctivae: conjunctivae normal Sclera: sclerae normal Cornea: corneas normal Pupils: PERRL EOM: EOM intact bilaterally Direct ophthalmoscopy: normal light reflex Neck Neck: normal visual inspection, trachea midline, supple and tender (Diffuse mild posterior) Other: Patient wearing a c-collar Chest Chest: normal inspection of the chest and normal palpation of entire chest wall Resp Effort & Inspection: normal respiratory effort and able to speak in complete sentences Auscultation: clear to auscultation bilaterally Cardio Rate: regular rate Rhythm: abnormal rhythm irregularly irregular Heart Sounds: murmur GI Palpation: soft and nontender Back/Spine/Pelvis Back: no CVA tenderness and back tenderness Other: While maintaining C-spine precautions, patient was logrolled to her left, normal visual inspection of her back. She has diffuse mid thoracic discomfort. Skin Rashes: no rashes Neuro General: patient alert, patient awake, patient oriented x3, moves all extremities and no focal motor deficits Cranial Nerves: CN's II-XI intact bilaterally Cognition: normal cognition Speech: speech normal Motor: muscle tone normal throughout Sensory Exam: no sensory deficits noted Extrem General: full ROM and capillary refill normal Shoulder/upper arm images: 1. 2 cm skin tear. Bleeding controlled. No bony point tenderness. Neuro, vascular, tendon intact. Psych Appearance: grossly normal Mental Status: mental status grossly normal Procedures Other Description: Left occiput, 0.5 cm laceration. Was thoroughly cleaned and irrigated. I then approximated using a single staple. Patient tolerated well.
[2021-04-03] MEDS: Lidocaine/Epinephri/Tetracaine Topical Gel 3 ML (10:00)
[2021-04-03 10:13] LABS: Abs Immature Grans 0.06 10^3/uL (0.0-0.06); Absolute Basophil Count 0.11 10^3/uL (0.0-0.2); Absolute Eosinophil Count 0.17 10^3/uL (0.0-0.7); Absolute Lymphocyte Count 2.77 10^3/uL (1.2-3.4); Absolute Monocyte Count 0.79 10^3/uL (0.1-0.8); Absolute Neutrophil Count 6.85 10^3/uL (1.2-6.7); Eosinophils % 1.6; HCT 34.6 % (36.0-46.0); HGB 10.9 g/dL (11.2-15.7); Immature Grans % 0.6; Lymphocytes % 25.8; MCH 27.7 pg (27.0-33.0); MCHC 31.5 % (32.0-36.0); MCV 87.8 fL (80-95); MPV 10.7 fL (8.0-11.0); Monocytes % 7.3; Neutrophils % 63.7; Nucleated RBC 0 %; Platelet Count 285 10^3/uL (130-400); RBC 3.94 10^6/uL (3.93-5.22); RDW 17.1 % (11.7-14.6); RDW-SD 55.4 fL; WBC 10.75 10^3/uL (4.4-10.8)
[2021-04-03 10:27] LABS: ALT 14 U/L (14-59); AST 14 U/L (15-37); Albumin 3.4 g/dL (3.4-5.0); Alkaline Phosphatase 85 U/L (46-116); Anion Gap 9.1 mmol/L (3-11); BUN 27 mg/dL (7-18); Bilirubin, Total 0.4 mg/dL (0.2-1.0); CO2 26.9 mmol/L (21.0-32.0); Calcium 9.5 mg/dL (8.5-10.1); Chloride 103 mmol/L (98-107); Estimated GFR 52.95 (mL/min/1.73m2); Glucose 255 mg/dL (74-106); Potassium 4.5 mmol/L (3.5-5.1); Sodium 139 mmol/L (136-145); Total Protein 7.4 g/dL (6.4-8.2)
[2021-04-03 11:26] LABS: Hemoglobin A1C 8.9 % (<5.7)
== END 2021-04-03 12:09 | disposition home or self-care (01) ==
PROVIDERS: Emergency Provider Physician Assistant; PCP Family Medicine
DX: S01.01XA Laceration without foreign body of scalp, initial encounter (principal); S51.012A Laceration without foreign body of left elbow, initial encounter; W01.0XXA Fall on same level from slipping, tripping and stumbling without subsequent striking against object, initial encounter; E11.9 Type 2 diabetes mellitus without complications
CPT/HCPCS: 12001; 36415; 80053; 93005; 99284; 70450; 72125; 72128; 72131; 83036; 85025; 93010; 99283

== ENCOUNTER 2021-05-05 04:17 | Outpatient (CLI) | payer MEDICARE, SELFPAY ==
--- NOTE | 2021-05-05 13:00 | NS.NUTBLAN_ITS ---
Leila was referred to Medical Nutrition Therapy for diabetes management and insulin injection instruction. Leila reports having a CVA in September 2020 and losing 20 lbs. She is 5'2 100 lbs. Goal weight: 115 lbs. PMH: DM2. DM meds: metformin 850 mg/dl BID, 10 units lantus q HS. Most recent A1c: 8.9% (04/03/21). Leila states she does not want to take insulin. She receives meals on wheels and consumes one meal daily, along with 2 ensures and breakfast (toast). Currently meeting macronutrient needs for weight regain. Leila reports she does not check her blood sugars, takes her metformin but has not started (and will not start) her prescribed insulin. Session today focused on the benefits of including a long acting insulin and the risks associated with not using snf insulin. Leila is willing to check her blood sugars in AM and before bed and will bring her blood sugar log to next PCP visit. She also would like another A1C in June to assess glycemic control. Session also included dietary modifications for managing blood sugars and gaining weight. No follow up planned at this time. Encouraged Leila to follow up with PCP in next week with blood sugar log and discuss further her hesitation of using insulin.
== END 2021-05-05 04:18 | disposition home or self-care (01) ==
LOC: DS 04:17
PROVIDERS: PCP Family Medicine; Visit Provider Dietitian, Registered
DX: E11.9 Type 2 diabetes mellitus without complications (principal); Z79.4 Long term (current) use of insulin; Z71.3 Dietary counseling and surveillance
CPT/HCPCS: 97802

== ENCOUNTER 2021-06-05 00:48 | Outpatient (CLI) | payer MEDICARE, OTHER, SELFPAY ==
--- NOTE | 2021-06-05 13:00 | NS.NUTBLAN_ITS ---
Leila and friend (Jessica) return for diabetes self management education. Wt: 97 lbs, 62 inches, BMI 18. Most recent A1C: 8.9% (04/03/21), up from 6.5% six months ago. Leila has lost 13 lbs in last 6 months. PCP has recommended basal insulin, Leila was at first resistant but now is interested in getting education on how to inject her self. DM meds: 10 units lantus SQ HS, 850 mg metformin BID. Session today focused on how to use a Lantus insulin pen. Leila practiced a demo pen several times (9 times) but was unable to complete demo injection without prompting. Memory, sight and dexterity are all barriers for her to self administer insulin. Jessica was instructed as well and can help her when available. Leila was also instructed to check her blood sugars 3 times daily: fasting, after a meal, before bed- blood sugar log book provided. Leila was encouraged to eat at least 3 times daily. She cannot remember what she ate in the last 24 hours however, does drink ensure twice daily (600 kcal) and usually heats up left overs for dinner prepared by her nephew. She reports not eating the meals on wheels meals. In view of barriers for self administering insulin, erratic meals, memory loss and continued weight loss it is evident that Leila would benefit from home health visits daily. Recommend referral to home health. Will be available prn.
== END 2021-06-05 00:49 | disposition home or self-care (01) ==
LOC: DS 00:48
PROVIDERS: PCP Nurse Practitioner Family; Visit Provider Dietitian, Registered
DX: E11.9 Type 2 diabetes mellitus without complications (principal); Z79.4 Long term (current) use of insulin; Z71.3 Dietary counseling and surveillance
CPT/HCPCS: 97803

== ENCOUNTER 2022-01-05 02:15 | Outpatient (CLI) | payer MEDICARE, OTHER, SELFPAY ==
[2022-01-05 12:55] LABS: Abs Immature Grans 0.04 10^3/uL (0.0-0.06); Absolute Basophil Count 0.09 10^3/uL (0.0-0.2); Absolute Eosinophil Count 0.25 10^3/uL (0.0-0.7); Absolute Monocyte Count 0.77 10^3/uL (0.1-0.8); Absolute Neutrophil Count 7.22 10^3/uL (1.2-6.7); Basophils % 0.9; Eosinophils % 2.4; HCT 36.1 % (36.0-46.0); HGB 11.4 g/dL (11.2-15.7); Immature Grans % 0.4; Lymphocytes % 20.1; MCH 30.4 pg (27.0-33.0); MCHC 31.6 % (32.0-36.0); MCV 96 fL (80-95); MPV 11.3 fL (8.0-11.0); Monocytes % 7.4; Neutrophils % 68.8; Platelet Count 216 10^3/uL (130-400); RBC 3.75 10^6/uL (3.93-5.22); RDW 14.8 % (11.7-14.6); RDW-SD 52.3 fL; Reticulocyte 1.6 % (0.5-2.4); WBC 10.47 10^3/uL (4.4-10.8)
[2022-01-05 14:03] LABS: Iron 42 ug/dL (50-170); Total Iron Binding Capacity 287 ug/dL (250-450); Transferrin Sat 15 % (15-50)
[2022-01-05 14:30] LABS: ALT 16 U/L (14-59); AST 17 U/L (15-37); Albumin 3.8 g/dL (3.4-5.0); Alkaline Phosphatase 98 U/L (46-116); Anion Gap 9.4 mmol/L (3-11); BUN 23 mg/dL (7-18); Bilirubin, Total 0.5 mg/dL (0.2-1.0); CO2 29.6 mmol/L (21.0-32.0); Calcium 9.2 mg/dL (8.5-10.1); Chloride 100 mmol/L (98-107); Estimated GFR 52.95 (mL/min/1.73m2); Ferritin 33 ng/mL (8-252); Folate 17.2 ng/mL (8.6-20.0); Glucose 269 mg/dL (74-106); Magnesium 1.6 mg/dL (1.8-2.5); Potassium 4.8 mmol/L (3.5-5.1); Sodium 139 mmol/L (136-145); TSH (W/Ref FT4) 4.68 uIU/mL (0.36-3.74); Total Protein 7.1 g/dL (6.4-8.2); Vitamin B12 223 pg/mL (193-986)
[2022-01-05 14:49] LABS: FREE T4 0.95 ng/dL (0.76-1.46)
[2022-01-06 22:08] LABS: Erythropoietin 19.8 mIU/mL (2.6 - 18.5)
== END 2022-01-05 02:16 | disposition home or self-care (01) ==
LOC: LBO 02:15
PROVIDERS: PCP Nurse Practitioner Family; Visit Provider Nurse Practitioner Family
DX: D64.9 Anemia, unspecified (principal); D51.0 Vitamin B12 deficiency anemia due to intrinsic factor deficiency; N18.31 Chronic kidney disease, stage 3a; R53.83 Other fatigue; E83.42 Hypomagnesemia
CPT/HCPCS: 36415; 80053; 80186; 82668; 82607; 82728; 82746; 83540; 83550; 83735; 84439; 84443; 85025; 85045

== ENCOUNTER 2022-02-13 11:11 | Inpatient (IN) | payer MEDICARE, OTHER, SELFPAY ==
[2022-02-13] VITALS (28 sets, daily range): BP systolic 120–165; BP diastolic 41–98; PULSE 58–115; RESP 16–27; TEMP 35.3–37; O2SAT 92–99
--- NOTE | 2022-02-13 11:15 | RT.EKG_ITS ---
APPROVED REPORT Exam: Resting ECG Reason for Exam: weakness Patient Location: E HR:90 bpm ECG Measurements Heart Rate 90 AXIS ME [id number] P [id number] QRSd 92 QRS 44 QT 391 T 40 QTc 479 Conclusion Atrial fibrillation...? atrial activity Anterior infarct, old...Q >40mS, abnormal ST-T, V2-V5 atrial fibrillation, normal axis
[2022-02-13 11:40] LABS: Abs Immature Grans 0.05 10^3/uL (0.0-0.06); Absolute Basophil Count 0.04 10^3/uL (0.0-0.2); Absolute Eosinophil Count 0.02 10^3/uL (0.0-0.7); Absolute Lymphocyte Count 1.33 10^3/uL (1.2-3.4); Absolute Monocyte Count 0.79 10^3/uL (0.1-0.8); Basophils % 0.3; Eosinophils % 0.2; HCT 26.6 % (36.0-46.0); HGB 8.4 g/dL (11.2-15.7); Immature Grans % 0.4; Lymphocytes % 11.1; MCH 29.6 pg (27.0-33.0); MCHC 31.6 % (32.0-36.0); MCV 94 fL (80-95); MPV 10.9 fL (8.0-11.0); Monocytes % 6.6; Neutrophils % 81.4; Platelet Count 286 10^3/uL (130-400); RBC 2.84 10^6/uL (3.93-5.22); RDW 15.1 % (11.7-14.6); WBC 11.96 10^3/uL (4.4-10.8)
[2022-02-13 11:41] LABS: Absolute Neutrophil Count 9.74 10^3/uL (1.2-6.7)
[2022-02-13 11:53] LABS: ALT 15 U/L (14-59); AST 15 U/L (15-37); Albumin 3.7 g/dL (3.4-5.0); Alkaline Phosphatase 83 U/L (46-116); Anion Gap 8.5 mmol/L (3-11); BUN 25 mg/dL (7-18); Bilirubin, Total 0.5 mg/dL (0.2-1.0); CO2 25.5 mmol/L (21.0-32.0); Calcium 9.2 mg/dL (8.5-10.1); Chloride 99 mmol/L (98-107); Estimated GFR 52.82 (mL/min/1.73m2); Glucose 225 mg/dL (74-106); Potassium 5.4 mmol/L (3.5-5.1); Sodium 133 mmol/L (136-145); Total Protein 7.2 g/dL (6.4-8.2)
[2022-02-13 12:00] LABS: NT-proBNP 3621 pg/mL (<300); Troponin I < 50 ng/L (<or=60)
--- NOTE | 2022-02-13 12:30 | DI.CT_ITS ---
Exam(s) CT ABDOMEN PELVIS W EXAM: CT ABDOMEN PELVIS W CLINICAL HISTORY: abdominal pain, bleeding TECHNIQUE: Imaging Protocol: Axial computed tomography images with coronal and sagittal reformatted images were created and reviewed CONTRAST MATERIAL: Intravenous: Visipaque 320ml Contrast volume:50 mL Oral: No COMPARISON: No exams were available for comparison FINDINGS: ABDOMEN: Lung Bases: There are moderate bilateral pleural effusions. Aortic and mitral valve calcifications a re present. Mild cardiomegaly is seen. Coronary artery calcifications are present. Pulmonary edema is present. Liver: Normal density. No measurable mass. Portal, Superior Mesenteric, and Splenic Veins: Unremarkable. Gallbladder and Biliary Tract: Cholelithiasis. No biliary ductal dilatation. Pancreas: Normal density, no abnormal calcifications or inflammatory process. Spleen: Normal. Adrenals: No masses seen. Kidneys: Normal size, contour and axis. No radiodense stones or obstructive uropathy. No masses seen. Abdominal Aorta: Abdominal portion non-dilated. Atherosclerosis is present. Bowel: There is no evidence of bowel obstruction. There is mild diffuse thickening of the wall of th e ascending colon. This may be due to underdistention. Infectious or inflammatory colitis cannot be excluded. Please correlate clinically. Appendix is unremarkable. There is diverticulosis of the co kevyn, but no evidence of acute diverticulitis. There is a moderate amount of stool seen in the colon. Peritoneal Cavity: No ascites, collection or mesenteric inflammatory response. No free air. Lymph Nodes: Within normal limits. Bones: Within normal limits for the patient's age. Soft Tissues: Unremarkable. PELVIS: Bladder: There is mild diffuse thickening of the wall of the urinary bladder. This may be due to und erdistention. Cystitis cannot be excluded. Reproductive Organs: Unremarkable as visualized. Lymph Nodes: Within normal limits. Bones: Within normal limits for the patient's age. IMPRESSION: 1. Mild diffuse thickening of the wall of the ascending colon. This may be due to underdistention bu t an infectious or inflammatory colitis cannot be excluded. Ischemic colitis should also be consider ed. Please correlate clinically. 2. Findings suggestive of congestive heart failure with pulmonary edema, pleural effusions and cardio megaly. 3. Cholelithiasis. No biliary ductal dilatation. RADIATION DOSE DELIVERED: 652.54mGy.cm Total DLP DATA REPOSITORY: All CT scans at this facility are submitted to the National Radiology Data Registry (NRDR) Dose Index Registry (DIR) with the [employer] ([employer]). RADIATION OPTIMIZATION: All CT scans at this facility use at least one of these dose optimization te chniques: automated exposure control; mA and/or kV adjustment per patient size (includes targeted exa ms where dose is matched to clinical indication); or iterative reconstruction.
--- NOTE | 2022-02-13 12:34 | DI.RAD_ITS ---
Exam(s) XR CHEST 1V IN DI DEPT EXAM: XR CHEST 1V IN DI DEPT CLINICAL HISTORY: shortness of breath TECHNIQUE: 2D digital imaging was performed of the chest. One image was obtained. An AP view was ob tained. COMPARISON: CR CHEST 2 VIEWS PA,LAT from 03/10/2018 FINDINGS: MEDIASTINUM: Normal. HEART: Normal. PULMONARY VASCULATURE: Normal. LUNGS: Bilateral reticular infiltrates. PLEURAL SPACE: There is a small left pleural effusion. There is a question of a small right pleural effusion. No pneumothorax. BONE:Within normal limits for the patient's age. OTHER FINDINGS:Normal. IMPRESSION: 1. Small bilateral pleural effusions, left greater than right. 2. Bilateral reticular infiltrates. This may represent edema or infection. Please correlate clinica lly. DATA REPOSITORY: RADIATION DOSE DELIVERED:
[2022-02-13 12:46] LABS: COVID-19 PCR Negative (Negative); Influenza A PCR Negative (Negative); Influenza B PCR Negative (Negative); RSV PCR Negative (Negative)
[2022-02-13] MEDS: Pantoprazole 40 MG VIAL IVP ×2 (12:57→20:30)
[2022-02-13] MEDS: Normal Saline 500 ML IV (12:59)
--- NOTE | 2022-02-13 13:08 | NUR.NOTE ---
Nursing Note: Bedside POC Guiac test done by RADHA Herrera - result is positive.
[2022-02-13] MEDS: Normal Saline Flush 10 ML SYR IVP ×2 (13:21→20:31)
--- NOTE | 2022-02-13 13:33 | DI.VRAD_ITS ---
PROCEDURE INFORMATION: Exam: XR Chest Exam date and time: 02/13/2022 1:16 PM Age: 82 years old Clinical indication: Shortness of breath TECHNIQUE: Imaging protocol: XR of the chest. Views: 1 view. COMPARISON: CR CHEST 2 VIEWS PA,LAT 03/10/2018 11:01 AM FINDINGS: Lungs: There is mild reticular interstitial thickening. Pleural spaces: There is mild blunting of the left costophrenic angle. Heart/Mediastinum: No cardiomegaly. Bones/joints: Unremarkable. IMPRESSION: 1. Small left pleural effusion. 2. Mild interstitial thickening probably due to pulmonary edema or bronchiolitis.. Dictated and Authenticated by: Al Robison MD. Ordering:MARCIO Herrera MD
--- NOTE | 2022-02-13 13:43 | DI.VRAD_ITS ---
PROCEDURE INFORMATION: Exam: CT Abdomen And Pelvis With Contrast Exam date and time: 02/13/2022 1:06 PM Age: 82 years old Clinical indication: Other: Abdominal pain, bleeding TECHNIQUE: Imaging protocol: Computed tomography of the abdomen and pelvis with contrast. Contrast material: VISIPAQUE 320; Contrast volume: 50 ml; Contrast route: INTRAVENOUS (IV); COMPARISON: CR XR PELVIS AP 10/04/2020 1:12 AM FINDINGS: Lungs: There is diffuse bilateral interstitial septal thickening consistent with CHF and/or pulmonary edema. Pleural spaces: There is moderate bilateral pleural effusion. Heart: Heart is enlarged. Heavy mitral annular calcifications. Heavy calcification of aortic valve. Liver: No mass. There is periportal edema, probably due to CHF. Gallbladder and bile ducts: There are punctate foci of cholelithiasis. There is trace fluid adjacent to the gallbladder probably related to CHF. Pancreas: Normal. No ductal dilation. Spleen: Normal. No splenomegaly. Adrenal glands: Normal. No mass. Kidneys and ureters: Normal. No hydronephrosis. Stomach and bowel: There is moderate stool volume noted in the left colon and transverse colon. There is mild thickening of the ascending colon. Appendix: Appendix is unremarkable. Intraperitoneal space: Unremarkable. No free air. No significant fluid collection. Vasculature: Heavy atherosclerotic calcifications of abdominal aorta. Lymph nodes: Unremarkable. No enlarged lymph nodes. Urinary bladder: Unremarkable as visualized. Reproductive: Unremarkable as visualized. Bones/joints: Disc degenerative changes with mild loss of disc height at L4-L5. There are endplate sclerosis at L4-L5, likely degenerative. There is left intramedullary femoral radha with a dynamic screw noted. Soft tissues: There is mild anasarca. IMPRESSION: 1. Mild diffuse thickening of the ascending colon, possible colitis, infectious or inflammatory versus ischemic. 2. Moderate stool volume in the colon consistent with constipation. 3. Congestive heart failure pattern with pulmonary edema and moderate bilateral pleural effusions. 4. Cholelithiasis. Trace fluid adjacent to the gallbladder, nonspecific in the presence of CHF . Consider clinical correlation. No significant gallbladder wall edema. Dictated and Authenticated by: Al Robison MD. Ordering:MARCIO Herrera MD
[2022-02-13] MEDS: Furosemide 20 MG/2 ML VIAL IVP (13:44)
--- NOTE | 2022-02-13 14:17 | W.PM.HP.N ---
Date of service: 02/13/22 Time of Service: 13:17 Assessment and Plan Assessment and plan (1) GI bleed: Status: Chronic Assessment and plan: will trend H&H has been type and screened eliquis placed on hold given IV protonix discussed with general surgery with no emergent procedure recommended at this time closely monitor (2) Acute on chronic heart failure: Status: Acute Assessment and plan: last echo in Sep 2020 shows EF 69%, no left ventricular segmental wall motion abnormalities, critical aortic stenosis, worsening since december 2019 received IV lasix in the ED, use cautiously in setting of severe monitor I&O closely, daily weights (3) Type II diabetes mellitus with renal manifestations: Status: Chronic Assessment and plan: last A1C in December of this year is 7.3 will continue carb controlled diet check blood sugars ac/hs with sliding scale as needed hold meformin while hospitalized Qualifiers: Chronic kidney disease stage: stage 3 (moderate) Chronic kidney disease stage 3 subtype: stage 3a (GFR 45-59) Diabetes mellitus complication detail: with chronic kidney disease Diabetes mellitus half-way insulin use: unspecified half-way insulin use status Qualified Code(s): E11.22 - Type 2 diabetes mellitus with diabetic chronic kidney disease; N18.31 - Chronic kidney disease, stage 3a (4) CKD (chronic kidney disease): Status: Chronic Qualifiers: Chronic kidney disease stage: unspecified stage Qualified Code(s): N18.9 - Chronic kidney disease, unspecified (5) Critical aortic valve stenosis: Status: Acute Assessment and plan: [place] [facility] [place] declines surgical repair/replacement (6) AF (atrial fibrillation): Status: Chronic Assessment and plan: rate controlled.\ continue diltiazem apixaban will be placed on hold in setting of GI bleeding (7) Moderate obstructive sleep apnea: Status: Chronic Assessment and plan: home CPAP (8) DVT prophylaxis: Status: Acute Assessment and plan: teds and scd only in setting of gi bleeding apixaban is placed on hold. discussed with DR Torres. History of Present Illness History of Present Illness Chief Complaint: shortness of breath, rectal bleeding Narrative: patient reports to the ED for evaluation of passing bright red blood and shortness of breath. No chest pain or lightheadedness. she is fully anticoagulated on eliquis for afib and has history of severe aortic stenosis but declines surgical repair/replacement. Her work up in the ED consistent with fluid overload, with drip in hemoglobin and hematocrit. she was given lasix 20 mg IVP. Her case was discussed with general surgery and no recommendations for procedure at this time in setting of acute CHF. hospitalist was requested to admit. Review of Systems All systems reviewed & are unremarkable except as noted in HPI and below PFSH All Active Problems (Updated 02/13/22 @ 15:01 by Theresa Smith NP) DVT prophylaxis (Acute) Acute on chronic heart failure (Acute) GI bleed (Chronic) Vitamin B12 deficiency (Acute) Anemia (Chronic) Physical deconditioning (Acute) Peripheral neuropathy (Acute) CKD (chronic kidney disease) (Chronic) Weight loss (Acute) Critical aortic valve stenosis (Acute) TTE 01/17/20: Critical Aortic Stenosis (0.5 cm2, 43 mmHg) Mitral Valve Stenosis Tinnitus (Acute) Asthma without status asthmaticus (Acute 02/06/14) Mitral valvular stenosis and aortic valvular stenosis (Acute 02/06/14) 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 Allergic rhinitis (Chronic 02/06/14) Anemia (Chronic) AF (atrial fibrillation) (Chronic) CHF (congestive heart failure) (Chronic) Medical History Hip fracture, intertrochanteric Muscle pain (11/14/15) buttock and ant thigh, with exertion, ? spinal caludication Pneumonia SCCA (squamous cell carcinoma) of skin Derm: Dr Simpson; Left yarsani SCCA 12/2016, 06/2018; Frontal parietal scalp SCCA 06/2018; left cheek 09/2019 Stroke due to embolism (~04/30/20) Surgical History Cataract, rgt eye (06/24/15) Dilation and curettage 1960's Extraction of cataract (06/10/15) Left eye- Dr. 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 Current gender identity: female Other: 2 children, 1 What is your relationship status?: Panel score (0-1 are the most socially isolated patients): 0 What type of physical activity do you participate in: none Seatbelt use: always Drive intox or ride w/intox patrol driver: No Water heater temp set <120 deg: Yes Working smoke detector in home: Yes Fire extinguisher in home: No Carbon monox detector in home: Yes Do you feel safe at home: Yes Do you feel safe in your relationship?: Yes Victim of emotional abuse: No Victim of sexual abuse: No Would you like helpful sources: No Meds Allergies and Home Medications Allergies Allergy/AdvReac Type Severity Reaction Status Date / Time cefazolin Allergy Intermediate itching Verified 02/13/22 11:25 and morbilliform rash torso, arms, thighs epinephrine Allergy [place] [facility] Verified 02/13/22 11:25 note dated 12/02/20 [facility] tetanus and diphtheria Allergy unknown Verified 02/13/22 11:25 toxoids sitagliptin AdvReac Severe diarrhea Verified 02/13/22 11:25 metoprolol AdvReac Intermediate FATIGUE Verified 02/13/22 11:25 Home Medications Medication Instructions Recorded Confirmed Type mirtazapine 7.5 mg tablet 7.5 mg PO QHS #90 tabs 01/29/21 01/15/22 Rx pen needle, diabetic 31 gauge x #100 ea 03/03/21 01/15/22 Rx 5/16 (Pen Needle) metformin 850 mg tablet 850 mg PO BID #180 tabs 03/10/21 02/13/22 Rx (Glucophage) acetaminophen 325 mg capsule 650 mg PO ONCE PRN pain 05/28/21 01/15/22 History blood sugar diagnostic (Blood #100 ea 05/28/21 01/15/22 Rx Glucose Test strips) blood-glucose meter #1 ea 05/28/21 01/15/22 Rx lancets #100 ea 05/28/21 01/15/22 Rx imiquimod 5 % topical cream packet 1 applic topical .3 times per week 08/03/21 01/15/22 History atorvastatin 40 mg tablet 40 mg PO HS #90 tabs 08/05/21 02/13/22 Rx apixaban 2.5 mg tablet 2.5 mg PO BID #180 tabs 09/10/21 02/13/22 Rx diltiazem HCl 120 mg 120 mg PO HS #90 tab-caps 09/28/21 02/13/22 Rx capsule,extended release 24 hr cyanocobalamin (vitamin B-12) 1,000 mcg PO DAILY #90 tab-caps 01/15/22 01/15/22 Rx 1,000 mcg tablet magnesium oxide 400 mg PO DAILY #90 tab-caps 01/15/22 01/15/22 Rx Exam Const General: cooperative, frail appearing and ill appearing chronically Nutritional Appearance: thin Orientation: alert, awake and oriented x3 Chest Chest: normal inspection of the chest Resp Effort & Inspection: no respiratory distress and tachypneic Auscultation: diminished lung sounds Cardio Heart Sounds: murmur systolic / GI Inspection: normal to inspection Palpation: soft and nontender Neuro General: patient alert, patient awake and patient oriented x3 Extrem General: normal to inspection, full ROM and no pedal edema Results Labs Result diagrams: 02/13/22 11:30 02/13/22 11:30 Labs: Laboratory Results - last 24 hr 02/13/22 02/13/22 02/13/22 11:30 11:30 11:30 WBC 11.96 H RBC 2.84 L Hgb 8.4 L Hct 26.6 L MCV 94 MCH 29.6 MCHC 31.6 L RDW 15.1 H Plt Count 286 MPV 10.9 Immature Gran % 0.4 Neutrophils % 81.4 Lymphocytes % 11.1 Monocytes % 6.6 Eosinophils % 0.2 Basophils % 0.3 Nucleated RBC % 0.0 Absolute Neutrophils 9.74 H Absolute Lymphocytes 1.33 Absolute Monocytes 0.79 Absolute Eosinophils 0.02 Absolute Basophils 0.04 Sodium 133 L Potassium 5.4 H Chloride 99 Carbon Dioxide 25.5 Anion Gap 8.5 BUN 25 H Creatinine 1.0 Estimated GFR/1.73 m2 52.82 Glucose 225 H Calcium 9.2 Total Bilirubin 0.5 AST 15 ALT 15 Alkaline Phosphatase 83 Troponin I NT-Pro-B Natriuret Pep Total Protein 7.2 Albumin 3.7 COVID-19 Source SARS-CoV-2 (PCR) Influenza Type A (PCR) Influenza Type B (PCR) RSV (PCR) Patient ABO/Rh B Negative Antibody Screen NEGATIVE 02/13/22 02/13/22 11:30 11:45 WBC RBC Hgb Hct MCV MCH MCHC RDW Plt Count MPV Immature Gran % Neutrophils % Lymphocytes % Monocytes % Eosinophils % Basophils % Nucleated RBC % Absolute Neutrophils Absolute Lymphocytes Absolute Monocytes Absolute Eosinophils Absolute Basophils Sodium Potassium Chloride Carbon Dioxide Anion Gap BUN Creatinine Estimated GFR/1.73 m2 Glucose Calcium Total Bilirubin AST ALT Alkaline Phosphatase Troponin I < 50 NT-Pro-B Natriuret Pep 3621 H Total Protein Albumin COVID-19 Source Not Applicable SARS-CoV-2 (PCR) Negative Influenza Type A (PCR) Negative Influenza Type B (PCR) Negative RSV (PCR) Negative Patient ABO/Rh Antibody Screen Last Vital Signs Temp 36.6 C 02/13/22 11:22 Pulse 60 02/13/22 12:46 Resp 20 02/13/22 13:00 BP 136/63 02/13/22 12:46 Pulse Ox 92 02/13/22 13:00
--- NOTE | 2022-02-13 14:55 | ED.GENADUL_ITS ---
Discharge Plan Disposition Patient Disposition: HOME Condition: Serious Discharge Details Clinical Impression: AF (atrial fibrillation), CHF (congestive heart failure), GI bleed Primary Care Provider: Sue Klein ED Provider: Sharon Ball Discharge Data Discharge Date/Time-TO BE ENTERED AT DEPARTURE: 02/13/22 15:48 Medical Decision Making Patient is hemodynamically stable but with new anemia, suspect related to GI bleed Given Protonix No varices suspected as patient does not consume alcohol Protonix only, IV fluid CT scan shows evidence of possible colitis, however patient is not having any diarrhea Bilateral pleural effusions, cardiomegaly, and elevated BNP, likely consistent with CHF Given 20 mg of Lasix which also probably help patient asked for potassium level Given 500 saline as patient appears intravascularly depleted Discussed with Dr. Jaycee carolina who will follow closely with patient Dr. Torres, hospitalist will admit patient to his service Patient agreeable to admission at this time, DNR/DNI status COVID and flu negative Medical Records Medical records reviewed: Yes I reviewed the patient's medical records. Lab Data Lab results reviewed: Yes I reviewed the patient's lab results. HPI General Date/Time Provider Initiated Documentation: 02/13/22 11:17 . HPI Narrative: This 82-year-old female presents with reports of shortness of breath, lightheadedness, blood in stool, presenting for the past several days. Denies any chest pain or fever. Denies any cough. States she had some bright red blood in her stool intermittently. Unsure of last episode reportedly. Does take Eliquis for history of atrial fibrillation. Denies known exacerbating or alleviating factors. Has pressure in abdomen denies any pain. Denies any urinary symptoms. Took her last dose of Eliquis this morning. Denies history of GI bleed in the past. Denies alcohol consumption. Denies any known COVID exposure. Related Data Home Medications Medication Instructions Recorded Confirmed mirtazapine 7.5 mg tablet 7.5 mg PO QHS #90 tabs 01/29/21 01/15/22 pen needle, diabetic 31 gauge x #100 ea 03/03/21 01/15/22/16 (Pen Needle) metformin 850 mg tablet 850 mg PO BID #180 tabs 03/10/21 02/13/22 (Glucophage) acetaminophen 325 mg capsule 650 mg PO ONCE PRN pain 05/28/21 01/15/22 blood sugar diagnostic (Blood #100 ea 05/28/21 01/15/22 Glucose Test strips) blood-glucose meter #1 ea 05/28/21 01/15/22 lancets #100 ea 05/28/21 01/15/22 imiquimod 5 % topical cream packet 1 applic topical .3 times per week 08/03/21 01/15/22 atorvastatin 40 mg tablet 40 mg PO HS #90 tabs 08/05/21 02/13/22 apixaban 2.5 mg tablet 2.5 mg PO BID #180 tabs 09/10/21 02/13/22 diltiazem HCl 120 mg 120 mg PO HS #90 tab-caps 09/28/21 02/13/22 capsule,extended release 24 hr cyanocobalamin (vitamin B-12) 1,000 mcg PO DAILY #90 tab-caps 01/15/22 01/15/22 1,000 mcg tablet magnesium oxide 400 mg PO DAILY #90 tab-caps 01/15/22 01/15/22 Previous Rx's Medication Instructions Recorded mirtazapine 7.5 mg tablet 7.5 mg PO QHS #90 tabs 01/29/21 pen needle, diabetic 31 gauge x #100 ea 03/03/2102/01 (Pen Needle) metformin 850 mg tablet 850 mg PO BID #180 tabs 03/10/21 (Glucophage) blood sugar diagnostic (Blood #100 ea 05/28/21 Glucose Test strips) blood-glucose meter #1 ea 05/28/21 lancets #100 ea 05/28/21 atorvastatin 40 mg tablet 40 mg PO HS #90 tabs 08/05/21 apixaban 2.5 mg tablet 2.5 mg PO BID #180 tabs 09/10/21 diltiazem HCl 120 mg 120 mg PO HS #90 tab-caps 09/28/21 capsule,extended release 24 hr cyanocobalamin (vitamin B-12) 1,000 mcg PO DAILY #90 tab-caps 01/15/22 1,000 mcg tablet magnesium oxide 400 mg PO DAILY #90 tab-caps 01/15/22 Allergies Allergy/AdvReac Type Severity Reaction Status Date / Time cefazolin Allergy Intermediate itching Verified 02/13/22 11:25 and morbilliform rash torso, arms, thighs epinephrine [place]ergy [place] [facility] [place] 02/13/22 11:25 note dated 12/02/20 cgc tetanus and diphtheria Allergy unknown Verified 02/13/22 11:25 toxoids sitagliptin AdvReac Severe diarrhea Verified 02/13/22 11:25 metoprolol AdvReac Intermediate FATIGUE Verified 02/13/22 11:25 General Stated Complaint: GenMedical CARI: 3 Review of Systems All systems reviewed & are unremarkable except as noted in HPI and below PFSH All Active Problems (Updated 02/14/22 @ 18:55 by RADHA Wise) Sleep difficulties (Acute) DVT prophylaxis (Acute) Acute on chronic heart failure (Acute) GI bleed (Chronic) Vitamin B12 deficiency (Acute) Anemia (Chronic) Physical deconditioning (Acute) Peripheral neuropathy (Acute) CKD (chronic kidney disease) (Chronic) Weight loss (Acute) Critical aortic valve stenosis (Acute) TTE 01/17/20: Critical Aortic Stenosis (0.5 cm2, 43 mmHg) Mitral Valve Stenosis Tinnitus (Acute) Asthma without status asthmaticus (Acute 02/06/14) Mitral valvular stenosis and aortic valvular stenosis (Acute 02/06/14) 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 Allergic rhinitis (Chronic 02/06/14) Anemia (Chronic) AF (atrial fibrillation) (Chronic) CHF (congestive heart failure) (Chronic) Medical History Hip fracture, intertrochanteric Muscle pain (11/14/15) buttock and ant thigh, with exertion, ? spinal caludication Pneumonia SCCA (squamous cell carcinoma) of skin Derm: Dr Simpson; Left uatsdin SCCA 12/2016, 06/2018; Frontal parietal scalp SCCA 06/2018; left cheek 09/2019 Stroke due to embolism (~01/17/20) Surgical History Cataract, rgt eye (06/24/15) Dilation and curettage 1960's Extraction of cataract (06/10/15) Left eye- Dr. 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 [employer] Current gender identity: female Other: 2 children, 1 What is your relationship status?: Panel score (0-1 are the most socially isolated patients): 0 What type of physical activity do you participate in: none Seatbelt use: always Drive intox or ride w/intox frontload driver: No Water heater temp set <120 deg: Yes Working smoke detector in home: Yes Fire extinguisher in home: No Carbon monox detector in home: Yes Do you feel safe at home: Yes Do you feel safe in your relationship?: Yes Victim of emotional abuse: No Victim of sexual abuse: No Would you like helpful sources: No Exam Const General: cooperative, comfortable and no acute distress HENMT Other: moist mucous membranes Eyes Sclera: sclerae normal Pupils: PERRL Resp Effort & Inspection: normal respiratory effort Auscultation: clear to auscultation bilaterally Cardio Rate: regular rate Other: Murmur noted GI Inspection: normal to inspection Other: Mild suprapubic tenderness to palpation Other: Guaiac positive melena Skin General skin exam: pallor Neuro General: patient alert and patient oriented x3 Extrem General: normal to inspection Other: Distal pulses intact Course Vital Signs Vital signs: Vital Signs Temperature 36.6 C 02/13/22 11:22 Pulse 88 02/13/22 11:22 Respiratory Rate 17 02/13/22 11:22 Blood Pressure 163/65 H 02/13/22 11:22 Pulse Oximetry 96 02/13/22 11:22 Temperature 36.6 C 02/13/22 11:22 Pulse 60 02/13/22 12:46 Pulse 90 02/13/22 13:00 Respiratory Rate 20 02/13/22 13:00 Respiratory Effort Non-Labored 02/13/22 12:30 Respiratory Depth Normal 02/13/22 12:30 Respiratory Pattern Normal 02/13/22 12:30 Blood Pressure 136/63 02/13/22 12:46 Blood Pressure Mean 70 02/13/22 12:46 Pulse Oximetry 92 02/13/22 13:00 Oxygen Delivery Method Room Air 02/13/22 11:22 Oxygen Flow Rate 0 02/13/22 11:22 Lab/Test Results Lab/Test Results: Laboratory Tests Range/Units 02/13/22 02/13/22 02/13/22 11:30 11:30 11:30 WBC (4.4-10.8) 10^3/uL 11.96 H RBC (3.93-5.22) 10^6/uL 2.84 L Hgb (11.2-15.7) g/dL 8.4 L Hct (36.0-46.0) % 26.6 L MCV (80-95) fL 94 MCH (27.0-33.0) pg 29.6 MCHC (32.0-36.0) % 31.6 L RDW (11.7-14.6) % 15.1 H Plt Count (130-400) 10^3/uL 286 MPV (8.0-11.0) fL 10.9 Immature Gran % 0.4 Neutrophils % 81.4 Lymphocytes % 11.1 Monocytes % 6.6 Eosinophils % 0.2 Basophils % 0.3 Nucleated RBC % (0.0-0.3) % 0.0 Absolute Neutrophils (1.2-6.7) 10^3/uL 9.74 H Absolute Lymphocytes (1.2-3.4) 10^3/uL 1.33 Absolute Monocytes (0.1-0.8) 10^3/uL 0.79 Absolute Eosinophils (0.0-0.7) 10^3/uL 0.02 Absolute Basophils (0.0-0.2) 10^3/uL 0.04 Sodium (136-145) mmol/L 133 L Potassium (3.5-5.1) mmol/L 5.4 H Chloride (98-107) mmol/L 99 Carbon Dioxide (21.0-32.0) mmol/L 25.5 Anion Gap (3-11) mmol/L 8.5 BUN (7-18) mg/dL 25 H Creatinine (0.55-1.02) mg/dL 1.0 Estimated GFR/1.73 m2 (mL/min/1.73m2) 52.82 Glucose (74-106) mg/dL 225 H Calcium (8.5-10.1) mg/dL 9.2 Total Bilirubin (0.2-1.0) mg/dL 0.5 AST (15-37) U/L 15 ALT (14-59) U/L 15 Alkaline Phosphatase (46-116) U/L 83 Troponin I (<or=60) ng/L NT-Pro-B Natriuret Pep (<300) pg/mL Total Protein (6.4-8.2) g/dL 7.2 Albumin (3.4-5.0) g/dL 3.7 COVID-19 Source SARS-CoV-2 (PCR) (Negative) Influenza Type A (PCR) (Negative) Influenza Type B (PCR) (Negative) RSV (PCR) (Negative) Patient ABO/Rh B Negative Antibody Screen NEGATIVE Range/Units 02/13/22 02/13/22 11:30 11:45 WBC (4.4-10.8) 10^3/uL RBC (3.93-5.22) 10^6/uL Hgb (11.2-15.7) g/dL Hct (36.0-46.0) % MCV (80-95) fL MCH (27.0-33.0) pg MCHC (32.0-36.0) % RDW (11.7-14.6) % Plt Count (130-400) 10^3/uL MPV (8.0-11.0) fL Immature Gran % Neutrophils % Lymphocytes % Monocytes % Eosinophils % Basophils % Nucleated RBC % (0.0-0.3) % Absolute Neutrophils (1.2-6.7) 10^3/uL Absolute Lymphocytes (1.2-3.4) 10^3/uL Absolute Monocytes (0.1-0.8) 10^3/uL Absolute Eosinophils (0.0-0.7) 10^3/uL Absolute Basophils (0.0-0.2) 10^3/uL Sodium (136-145) mmol/L Potassium (3.5-5.1) mmol/L Chloride (98-107) mmol/L Carbon Dioxide (21.0-32.0) mmol/L Anion Gap (3-11) mmol/L BUN (7-18) mg/dL Creatinine (0.55-1.02) mg/dL Estimated GFR/1.73 m2 (mL/min/1.73m2) Glucose (74-106) mg/dL Calcium (8.5-10.1) mg/dL Total Bilirubin (0.2-1.0) mg/dL AST (15-37) U/L ALT (14-59) U/L Alkaline Phosphatase (46-116) U/L Troponin I (<or=60) ng/L < 50 NT-Pro-B Natriuret Pep (<300) pg/mL 3621 H Total Protein (6.4-8.2) g/dL Albumin (3.4-5.0) g/dL COVID-19 Source Not Applicable SARS-CoV-2 (PCR) (Negative) Negative Influenza Type A (PCR) (Negative) Negative Influenza Type B (PCR) (Negative) Negative RSV (PCR) (Negative) Negative Patient ABO/Rh Antibody Screen
[2022-02-13] MEDS: Acetaminophen 325 MG TAB 650 MG PO (15:09)
[2022-02-13] MEDS: Insulin Aspart 300 UNITS/3 ML PEN SC ×2 (16:59→21:23)
[2022-02-13] MEDS: Normal Saline 50 ML 200 ML (17:55)
[2022-02-13 18:24] LABS: HCT 25.6 % (36.0-46.0); HGB 7.9 g/dL (11.2-15.7)
[2022-02-13 21:21] LABS: BUN 24 mg/dL (7-18); CREATININE 1.2 mg/dL (0.55-1.02); Calcium 8.3 mg/dL (8.5-10.1); Chloride 95 mmol/L (98-107); Potassium 5.1 mmol/L (3.5-5.1); Sodium 128 mmol/L (136-145)
[2022-02-13 21:22] LABS: Glucose 423 mg/dL (74-106)
[2022-02-13] MEDS: dilTIAZem CD 120 MG CAPCR PO (21:22)
[2022-02-13] MEDS: LORazepam 0.5 MG TAB 0.25 MG PO (21:22)
[2022-02-13] MEDS: Mirtazapine 15 MG TAB 7.5 MG PO (21:22)
[2022-02-13] MEDS: Atorvastatin 40 MG TAB PO (21:23)
[2022-02-13 21:51] LABS: Bilirubin Negative (Negative); Blood Negative (Negative); Clarity Clear (Clear); Glucose 500 mg/dL (Negative); Ketones Negative (Negative); Leukocyte Esterase Negative (Negative); Nitrite Negative (Negative); Urobilinogen 0.2 EU/dL (Up TO 0.2); pH 5.5 (5-8)
[2022-02-13 21:59] LABS: Bacteria Negative HPF (Negative); C & S Indicated? No; Casts Negative LPF (Negative); Crystals Negative HPF (Negative); Epithelial Cells Few HPF (Negative); Mucus Trace (Negative); RBC 0-2 HPF (0-2)
[2022-02-13] MEDS: Insulin Glargine 300 UNITS/3 ML PEN 10 UNITS SC (23:59)
[2022-02-14] VITALS (10 sets, daily range): BP systolic 115–145; BP diastolic 59–73; PULSE 67–89; RESP 18–25; TEMP 35.9–36.4; O2SAT 90–97
[2022-02-14] MEDS: Insulin Aspart 300 UNITS/3 ML PEN 10 UNITS SC
[2022-02-14 07:18] LABS: Abs Immature Grans 0.06 10^3/uL (0.0-0.06); Absolute Basophil Count 0.04 10^3/uL (0.0-0.2); Absolute Eosinophil Count 0.02 10^3/uL (0.0-0.7); Absolute Lymphocyte Count 1.04 10^3/uL (1.2-3.4); Absolute Monocyte Count 0.97 10^3/uL (0.1-0.8); Absolute Neutrophil Count 8.79 10^3/uL (1.2-6.7); Basophils % 0.4; Eosinophils % 0.2; HCT 23.8 % (36.0-46.0); Immature Grans % 0.5; Lymphocytes % 9.5; MCH 31.1 pg (27.0-33.0); MCHC 33.6 % (32.0-36.0); MCV 93 fL (80-95); MPV 11.4 fL (8.0-11.0); Monocytes % 8.9; Neutrophils % 80.5; Platelet Count 242 10^3/uL (130-400); RBC 2.57 10^6/uL (3.93-5.22); RDW 14.9 % (11.7-14.6); RDW-SD 50.9 fL; WBC 10.92 10^3/uL (4.4-10.8)
[2022-02-14 07:27] LABS: BUN 22 mg/dL (7-18); CREATININE 0.9 mg/dL (0.55-1.02); Calcium 8.5 mg/dL (8.5-10.1); Estimated GFR 59.65 (mL/min/1.73m2); Glucose 296 mg/dL (74-106)
[2022-02-14] MEDS: Pantoprazole 40 MG VIAL IVP ×2 (07:36→19:41)
[2022-02-14] MEDS: Normal Saline Flush 10 ML SYR IVP ×2 (07:36→16:15)
[2022-02-14] MEDS: Insulin Aspart 300 UNITS/3 ML PEN SC ×4 (07:37→22:33)
[2022-02-14 07:43] LABS: Anisocytosis 1+; Diff Comment Agrees w/ Instrument; Macrocytosis 1+; Ovalocytes 2+
[2022-02-14 07:44] LABS: Poikilocytes 1+
[2022-02-14 07:45] LABS: Chloride 96 mmol/L (98-107); Potassium 5.1 mmol/L (3.5-5.1)
[2022-02-14 09:50] LABS: Sodium 129 mmol/L (136-145)
--- NOTE | 2022-02-14 12:05 | PDOC.CMIN ---
- If Service Date Differs Date of service: 02/14/22 Time of Service: 12:05 Care Management Initial Assess REASON FOR HOSPITALIZATION:: GI bleed, Acute on chronic heart failure, Type II diabetes mellitus with renal manifestations, SOB PAST MEDICAL HISTORY/PAST SURGICAL HISTORY:: All Active Problems (Updated 02/13/22 @ 15:01 by Theresa Smith NP). DVT prophylaxis (Acute). Acute on chronic heart failure (Acute). GI bleed (Chronic). Vitamin B12 deficiency (Acute). Anemia (Chronic). Physical deconditioning (Acute). Peripheral neuropathy (Acute). CKD (chronic kidney disease) (Chronic). Weight loss (Acute). Critical aortic valve stenosis (Acute). TTE 01/17/20: Critical Aortic Stenosis (0.5 cm2, 43 mmHg). Mitral Valve Stenosis. Tinnitus (Acute). Asthma without status asthmaticus (Acute 02/06/14). Mitral valvular stenosis and aortic valvular stenosis (Acute 02/06/14). 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 micral >200. Pernicious anemia (Chronic 02/16/99). H/o Fe infusion; h/o intol oral iron. Multiple falls (Chronic 08/24/16). 04/2016; 05/2016; PT Tano Ray. Moderate obstructive sleep apnea (Chronic 09/24/16). CPAP since 09/2015 due to moderately severe. Lichen sclerosus (Chronic 12/16/14). DrPaul 2008, perineum; responds to clobetasol. Hyperlipidemia (Chronic 09/18/92). Gait disturbance (Chronic 03/29/17). Essential hypertension (Chronic 09/18/1960). on HCTZ 25 since 20 y/o! Allergic rhinitis (Chronic 02/06/14). Anemia (Chronic). AF (atrial fibrillation) (Chronic). CHF (congestive heart failure) (Chronic). Medical History . Hip fracture, intertrochanteric. Muscle pain (11/14/15). buttock and ant thigh, with exertion, ? spinal caludication. Pneumonia. SCCA (squamous cell carcinoma) of skin. Derm: Dr Simpson; Left christianity SCCA 12/2016, 06/2018; Frontal parietal scalp SCCA 06/2018; left cheek 09/2019. Stroke due to embolism (~01/17/20). Surgical History . Cataract, rgt eye (06/24/15). Dilation and curettage. 1960's. Extraction of cataract (06/10/15). Left eye- Dr. Morales. Status post hip surgery (~09/2020). LEFT intra trochanteric fx s/p cephalo medullary nailing. Tonsillectomy and adenoidectomy PREVIOUS FUNCTIONAL STATUS/SOCIAL/FAMILY SUPPORTS:: Leila is and lives in a first floor appartment in [facility]. She identifies her Nephew Antonio and friend Jessica as being very helpful. Per Leila, Jessica takes her to appointments and grocery store and helps her mow her lawn. Leila has a strategic solutions consultant and gets MOW 3 times per week. Leila is independent with her ADL's and shares that she has lots of friends and support. CURRENT FUNCTIONAL STATUS:: Leila was sitting in her chair when CM met with her. She is alert, oriented and easy to engage in coversation. She is 93% on 3 L NC and being treated with lasix for fluid overload. Leila is able to communicate with her family and friends by phone and she's also had visitors during her admission. ADVANCE DIRECTIVES:: HCA is daughter Nafisa Waite Has patient been provided with info about the portal/API?: Yes Did the patient sign up for the portal?: No CODE STATUS:: DNR/DNI ([facility] on file) INSURANCE COVERAGE / FINANCIAL ISSUES:: Medicare. for life [facility] CURRENT HOME/COMMUNITY SERVICES/EQUIPMENT:: PETRA. [place] PRIMARY CARE PHYSICIAN:: Sue Klein POTENTIAL DISCHARGE NEEDS:: Follow up appointments, HH services if indicated PATIENT/FAMILY EDUCATION NEEDS:: Review discharge instructions, limitations, medications and plan to follow up with community providers. ask me three. TRANSPORTATION:: Via private vehicle with Nephew Antonio or Friend Jessica. PLAN:: Anticipate Leila will discharge home with New HH services (if indicated) when medically ready per provider. Leila will follow up with her community providers and discharge plan of care as prescribed.
--- NOTE | 2022-02-14 15:41 | W.PM.PROGNOT ---
Date of Service Date of service: 02/14/22 Time of Service: 14:41 Assessment and Plan Assessment and plan (1) GI bleed: Status: Chronic Assessment and plan: will trend H&H 8.0/23.8 today has been type and screened eliquis placed on hold given IV protonix closely monitor (2) Acute on chronic heart failure: Status: Acute Assessment and plan: last echo in Sep 2020 shows EF 69%, no left ventricular segmental wall motion abnormalities, critical aortic stenosis, worsening since december 2019 received IV lasix in the ED, use cautiously in setting of severe monitor I&O closely, daily weights yesterday 43.091 today 47 - 4 kg more; asked nurse to repeat weight, physical exam does not correlate with weight gain. Repeat weight 46.8 kg. I suspect yesterdays weight was incorrect. Intake>ouput (3) Type II diabetes mellitus with renal manifestations: Status: Chronic Assessment and plan: last A1C in December of this year is 7.3 will continue carb controlled diet check blood sugars ac/hs with sliding scale as needed, Glucose 249 today - down from 475 yesterday hold meformin while hospitalized Qualifiers: Chronic kidney disease stage: stage 3 (moderate) Chronic kidney disease stage 3 subtype: stage 3a (GFR 45-59) Diabetes mellitus complication detail: with chronic kidney disease Diabetes mellitus moth exterminator insulin use: unspecified moth exterminator insulin use status Qualified Code(s): E11.22 - Type 2 diabetes mellitus with diabetic chronic kidney disease; N18.31 - Chronic kidney disease, stage 3a (4) CKD (chronic kidney disease): Status: Chronic Qualifiers: Chronic kidney disease stage: unspecified stage Qualified Code(s): N18.9 - Chronic kidney disease, unspecified (5) Critical aortic valve stenosis: Status: Acute Assessment and plan: followed by [facility] [place]. declines surgical repair/replacement (6) Sleep difficulties: Status: Acute Assessment and plan: Had some increased confusion and inability to sleep last night despite mirtazapine, lorazepam and phenergan. Doubled mirtazapine, lorazepam prn order for this paco. (7) AF (atrial fibrillation): Status: Chronic Assessment and plan: rate controlled. Continue diltiazem apixaban will be placed on hold in setting of GI bleeding (8) Moderate obstructive sleep apnea: Status: Chronic Assessment and plan: home CPAP (9) DVT prophylaxis: Status: Acute Assessment and plan: teds and scd only in setting of gi bleeding apixaban is placed on hold. discussed with Dr Torres. Subjective Subjective Patient reports: no new complaints Interval history since last seen: Eating less today, sleepy. 4 word dyspnea, SPO2 down in the low 80's. Turned up oxygen to 3 LPM, crackles in the left base, input>output, Wt: furosemide 20 mg IV given. Reassessment, improved, able to speak in full sentences, SPO2 >90% on 3 LPM. One episode of word salad. lasting about 5 minutes, discussed with Dr Torres, he went to see her, on reassessment she was back to baseline. No studies ordered. Exam Const General: cooperative, frail appearing and ill appearing chronically Nutritional Appearance: thin Orientation: alert, awake and oriented x3 Chest Chest: normal inspection of the chest Resp Effort & Inspection: no respiratory distress and tachypneic Auscultation: diminished lung sounds Cardio Heart Sounds: murmur systolic / GI Inspection: normal to inspection Palpation: soft and nontender Neuro General: patient alert, patient awake and patient oriented x3 Extrem General: normal to inspection, full ROM and no pedal edema Objective Last Vital Signs Temp 36 C L 02/14/22 11:42 Pulse 76 02/14/22 15:06 Resp 25 H 02/14/22 11:42 BP 140/69 02/14/22 11:42 Pulse Ox 93 02/14/22 11:42 Laboratory Results - last 24 hr 02/13/22 02/13/22 02/13/22 18:12 21:00 21:37 WBC RBC Hgb 7.9 L Hct 25.6 L MCV MCH MCHC RDW Plt Count MPV Immature Gran % Neutrophils % Lymphocytes % Monocytes % Eosinophils % Basophils % Nucleated RBC % Absolute Neutrophils Absolute Lymphocytes Absolute Monocytes Absolute Eosinophils Absolute Basophils RBC Morphology Poikilocytosis Anisocytosis Macrocytosis Ovalocytes Sodium 128 L Potassium 5.1 Chloride 95 L Carbon Dioxide 20.0 L Anion Gap 13.0 H BUN 24 H Creatinine 1.2 H Estimated GFR/1.73 m2 42.80 Glucose 423 H Calcium 8.3 L Urine Color Yellow Urine Clarity Clear Urine pH 5.5 Ur Specific [place] 1.020 Urine Protein 100 H Urine Ketones Negative Urine Blood Negative Urine Nitrite Negative Urine Bilirubin Negative Urine Urobilinogen 0.2 Ur Leukocyte Esterase Negative Urine RBC 0-2 Urine WBC 3-5 Ur Epithelial Cells Few Urine Crystals Negative Urine Bacteria Negative Urine Casts Negative Urine Mucus Trace Ur Culture Indicated? No Urine Glucose 500 H 02/14/22 02/14/22 06:25 06:25 WBC 10.92 H RBC 2.57 L Hgb 8.0 L Hct 23.8 L MCV 93 MCH 31.1 MCHC 33.6 D RDW 14.9 H Plt Count 242 MPV 11.4 H Immature Gran % 0.5 Neutrophils % 80.5 Lymphocytes % 9.5 Monocytes % 8.9 Eosinophils % 0.2 Basophils % 0.4 Nucleated RBC % 0.0 Absolute Neutrophils 8.79 H Absolute Lymphocytes 1.04 L Absolute Monocytes 0.97 H Absolute Eosinophils 0.02 Absolute Basophils 0.04 RBC Morphology See Below Poikilocytosis 1+ Anisocytosis 1+ Macrocytosis 1+ Ovalocytes 2+ Sodium 129 L Potassium 5.1 Chloride 96 L Carbon Dioxide 25.0 Anion Gap 8.0 BUN 22 H Creatinine 0.9 Estimated GFR/1.73 m2 59.65 Glucose 296 H Calcium 8.5 Urine Color Urine Clarity Urine pH Ur Specific [place] Urine Protein Urine Ketones Urine Blood Urine Nitrite Urine Bilirubin Urine Urobilinogen Ur Leukocyte Esterase Urine RBC Urine WBC Ur Epithelial Cells Urine Crystals Urine Bacteria Urine Casts Urine Mucus Ur Culture Indicated? Urine Glucose Reviewed Pertinent PMH: Yes
[2022-02-14] MEDS: Furosemide 20 MG/2 ML VIAL IVP (16:14)
[2022-02-14] MEDS: Atorvastatin 40 MG TAB PO (22:27)
[2022-02-14] MEDS: Mirtazapine 15 MG TAB PO (22:27)
[2022-02-14] MEDS: Insulin Glargine 300 UNITS/3 ML PEN 20 UNITS SC (22:28)
[2022-02-14] MEDS: dilTIAZem CD 120 MG CAPCR PO (22:33)
[2022-02-15] VITALS (9 sets, daily range): BP systolic 121–144; BP diastolic 56–73; PULSE 68–97; RESP 18–20; TEMP 35.3–37.5; O2SAT 96–100
[2022-02-15 05:48] LABS: Abs Immature Grans 0.04 10^3/uL (0.0-0.06); Absolute Basophil Count 0.04 10^3/uL (0.0-0.2); Absolute Neutrophil Count 9.38 10^3/uL (1.2-6.7); Basophils % 0.3; Eosinophils % 1.5; HGB 8.2 g/dL (11.2-15.7); Immature Grans % 0.3; MCH 29.6 pg (27.0-33.0); MCHC 32.8 % (32.0-36.0); MCV 90 fL (80-95); MPV 11.1 fL (8.0-11.0); Monocytes % 8.6; Neutrophils % 72.3; Platelet Count 254 10^3/uL (130-400); RBC 2.77 10^6/uL (3.93-5.22); RDW-SD 48.8 fL; WBC 12.97 10^3/uL (4.4-10.8)
[2022-02-15 05:56] LABS: Anion Gap 8.6 mmol/L (3-11); BUN 16 mg/dL (7-18); CO2 27.4 mmol/L (21.0-32.0); Calcium 8.3 mg/dL (8.5-10.1); Chloride 97 mmol/L (98-107); Estimated GFR 52.82 (mL/min/1.73m2); Glucose 145 mg/dL (74-106); Potassium 3.5 mmol/L (3.5-5.1); Sodium 133 mmol/L (136-145)
[2022-02-15 06:24] LABS: Absolute Eosinophil Count 0.19 10^3/uL (0.0-0.7); Absolute Monocyte Count 1.12 10^3/uL (0.1-0.8)
[2022-02-15 07:10] LABS: Diff Comment RBC Morph Reviewed
[2022-02-15 07:11] LABS: Macrocytosis 1+
[2022-02-15 07:12] LABS: Poikilocytes 1+
[2022-02-15] MEDS: Normal Saline Flush 10 ML SYR IVP (09:55)
[2022-02-15] MEDS: Pantoprazole 40 MG VIAL IVP ×2 (09:55→20:10)
--- NOTE | 2022-02-15 16:22 | W.PM.PROGNOT ---
Date of Service Date of service: 02/15/22 Time of Service: 15:22 Assessment and Plan Assessment and plan (1) GI bleed: Status: Chronic Assessment and plan: H&H stable 8.11/13 today has been type and screened eliquis placed on hold given IV protonix closely monitor (2) Acute on chronic heart failure: Status: Acute Assessment and plan: last echo in Sep 2020 shows EF 69%, no left ventricular segmental wall motion abnormalities, critical aortic stenosis, worsening since december 2019 received IV lasix in the ED, use cautiously in setting of severe monitor I&O closely, daily weights (3) Type II diabetes mellitus with renal manifestations: Status: Chronic Assessment and plan: last A1C in December of this year is 7.3 will continue carb controlled diet check blood sugars ac/hs with sliding scale as needed, Glucose 249 today - down from 475 yesterday hold meformin while hospitalized Qualifiers: Diabetes mellitus mcfp insulin use: unspecified mcfp insulin use status Diabetes mellitus complication detail: with chronic kidney disease Chronic kidney disease stage: stage 3 (moderate) Chronic kidney disease stage 3 subtype: stage 3a (GFR 45-59) Qualified Code(s): E11.22 - Type 2 diabetes mellitus with diabetic chronic kidney disease; N18.31 - Chronic kidney disease, stage 3a (4) CKD (chronic kidney disease): Status: Chronic Assessment and plan: stable. Qualifiers: Chronic kidney disease stage: unspecified stage Qualified Code(s): N18.9 - Chronic kidney disease, unspecified (5) Critical aortic valve stenosis: Status: Acute Assessment and plan: [place] [facility] [place] surgical repair/replacement (6) Sleep difficulties: Status: Acute Assessment and plan: Had some increased confusion and inability to sleep continue increased dose of mirtazapine, add melatonin will add melatonin (7) AF (atrial fibrillation): Status: Chronic Assessment and plan: rate controlled. Continue diltiazem apixaban will be placed on hold in setting of GI bleeding (8) Moderate obstructive sleep apnea: Status: Chronic Assessment and plan: home CPAP (9) DVT prophylaxis: Status: Acute Assessment and plan: teds and scd only in setting of gi bleeding apixaban is placed on hold. discussed with Dr Torres. Subjective Subjective Patient reports: no new complaints, tolerating liquids well, tolerating a regular diet and afebrile; denies shortness of breath Interval history since last seen: some confusion ongoing. reorients Exam Const General: cooperative, frail appearing and ill appearing chronically Nutritional Appearance: thin Orientation: alert, awake and oriented x3 Chest Chest: normal inspection of the chest Resp Effort & Inspection: no respiratory distress and tachypneic Auscultation: diminished lung sounds Cardio Heart Sounds: murmur systolic / GI Inspection: normal to inspection Palpation: soft and nontender Neuro General: patient alert, patient awake and patient oriented x3 Extrem General: normal to inspection, full ROM and no pedal edema Objective Last Vital Signs Temp 36.9 C 02/15/22 15:09 Pulse 76 02/15/22 16:04 Resp 20 02/15/22 15:09 BP 126/67 02/15/22 15:09 Pulse Ox 99 02/15/22 15:09 Laboratory Results - last 24 hr 02/15/22 02/15/22 05:20 05:20 WBC 12.97 H RBC 2.77 L Hgb 8.2 L Hct 25.0 L MCV 90 MCH 29.6 MCHC 32.8 D RDW 15.0 H Plt Count 254 MPV 11.1 H Immature Gran % 0.3 Neutrophils % 72.3 Lymphocytes % 17.0 Monocytes % 8.6 Eosinophils % 1.5 Basophils % 0.3 Nucleated RBC % 0.0 Absolute Neutrophils 9.38 H Absolute Lymphocytes 2.20 Absolute Monocytes 1.12 H Absolute Eosinophils 0.19 Absolute Basophils 0.04 RBC Morphology See Below Poikilocytosis 1+ Macrocytosis 1+ Sodium 133 L Potassium 3.5 D Chloride 97 L Carbon Dioxide 27.4 Anion Gap 8.6 BUN 16 Creatinine 1.0 Estimated GFR/1.73 m2 52.82 Glucose 145 H Calcium 8.3 L
[2022-02-15] MEDS: dilTIAZem CD 120 MG CAPCR PO (21:25)
[2022-02-15] MEDS: Mirtazapine 15 MG TAB PO (21:25)
[2022-02-15] MEDS: Atorvastatin 40 MG TAB PO (21:25)
[2022-02-15] MEDS: Melatonin 3 MG TAB PO (21:25)
[2022-02-15] MEDS: Insulin Glargine 300 UNITS/3 ML PEN 20 UNITS SC (21:28)
[2022-02-16] VITALS (12 sets, daily range): BP systolic 92–127; BP diastolic 43–62; PULSE 59–121; RESP 16–24; TEMP 35.5–37.7; O2SAT 81–100
[2022-02-16] MEDS: Pantoprazole 40 MG VIAL IVP ×2 (08:52→21:33)
[2022-02-16] MEDS: Normal Saline Flush 10 ML SYR IVP (08:52)
--- NOTE | 2022-02-16 11:22 | PGE_ITS ---
Date of Service Date of service: 02/16/22 Time of Service: : Assessment and Plan Assessment and plan (1) GI bleed: Status: Chronic Assessment and plan: H&H stable with no evidence of bleeding has been type and screened but has not needed blood eliquis on hold PPI changed to famotidine closely monitor (2) Acute on chronic heart failure: Status: Acute Assessment and plan: last echo in Sep 2020 shows EF 69%, no left ventricular segmental wall motion abnormalities, critical aortic stenosis, worsening since december 2019 received IV lasix in the ED, use cautiously in setting of severe monitor I&O closely, daily weights obtain echo, cards consult requiring oxygen continue to work on weaning (3) Type II diabetes mellitus with renal manifestations: Status: Chronic Assessment and plan: last A1C in December of this year is 7.3 will continue carb controlled diet check blood sugars ac/hs with sliding scale as needed, Glucose 249 today - down from 475 yesterday hold meformin while hospitalized Qualifiers: Chronic kidney disease stage: stage 3 (moderate) Chronic kidney disease stage 3 subtype: stage 3a (GFR 45-59) Diabetes mellitus complication detail: with chronic kidney disease Diabetes mellitus long term care administrator insulin use: unspecified long term care administrator insulin use status Qualified Code(s): E11.22 - Type 2 diabetes mellitus with diabetic chronic kidney disease; N18.31 - Chronic kidney disease, stage 3a (4) CKD (chronic kidney disease): Status: Chronic Assessment and plan: stable. Qualifiers: Chronic kidney disease stage: unspecified stage Qualified Code(s): N18.9 - Chronic kidney disease, unspecified (5) Critical aortic valve stenosis: Status: Acute Assessment and plan: followed [place] [facility] [place] declines surgical repair/replacement (6) Sleep difficulties: Status: Acute Assessment and plan: Had some increased confusion and inability to sleep continue increased dose of mirtazapine, add melatonin will add melatonin (7) AF (atrial fibrillation): Status: Chronic Assessment and plan: rate controlled. Continue diltiazem apixaban on hold in setting of GI bleeding (8) Moderate obstructive sleep apnea: Status: Chronic Assessment and plan: home CPAP (9) DVT prophylaxis: Status: Acute Assessment and plan: teds and scd only in setting of gi bleeding apixaban is placed on hold. palliative care consult placed and pending discussed with Dr Torres. Subjective Subjective Patient reports: no new complaints, feels better, tolerating liquids well and afebrile; denies shortness of breath Interval history since last seen: still requiring oxygen at 3 l/nc. each time weaned sats drop to 80's Exam Const General: cooperative, frail appearing and ill appearing chronically Nutritional Appearance: thin Orientation: alert, awake and oriented x3 Chest Chest: normal inspection of the chest Resp Effort & Inspection: no respiratory distress and tachypneic Auscultation: diminished lung sounds Cardio Heart Sounds: murmur systolic / GI Inspection: normal to inspection Palpation: soft and nontender Neuro General: patient alert, patient awake and patient oriented x3 Extrem General: normal to inspection, full ROM and no pedal edema Objective Last Vital Signs Temp 36.4 C L 02/16/22 07:45 Pulse 78 02/16/22 07:45 Resp 17 02/16/22 07:45 BP 127/60 02/16/22 07:45 Pulse Ox 100 02/16/22 07:45
--- NOTE | 2022-02-16 11:31 | CMPROGNOTE_ITS ---
- If Service Date Differs Date of service: 02/16/22 Time of Service: 11:31 Care Management Progress Note S/O: Leila was lying in bed when CM met with her. She is awake, alert and able to engage in conversation. Leila had and Echo and an exercise oximetry today. Her O2 NC is being weaned. She is currently 99% on 2L. Leila does not have home O2 at baseline. Also, Palliative consult is ordered. CM notified palliative office and will continue to support discharge planning needs. A: 82 year old female admitted to [facility] on 02/13/22 for GI bleed, Acute on chronic heart failure, Type II diabetes mellitus with renal manifestations, SOB P:Anticipate Leila will discharge home with [facility] services and [facility] (if indicated) when medically ready per provider. Leila will follow up with her community providers and discharge plan of care as prescribed.
[2022-02-16] MEDS: Insulin Aspart 300 UNITS/3 ML PEN SC ×2 (12:00→21:35)
--- NOTE | 2022-02-16 14:00 | DI.US_ITS ---
APPROVED REPORT EXAM: Comprehensive 2D, Doppler, and color-flow Echocardiogram Patient Location: In-Patient Embossing Toolsetter: Sara Bill RDCS (AE) Indications: Critical aortic stenosis, CHF, Hypoxia Other Information Study Quality: Fair. Technically limited study due to inability to position patient, body habitus. Conclusion Mild to moderate concentric left ventricular hypertrophy. Estimated ejection fraction 55 to 60%. Wa ll motion is normal The right ventricle appears normal in size and systolic function The left atrium is moderately to severely dilated. The right atrium is moderately dilated Aortic valve is calcified. There is critical aortic stenosis. Peak gradient is 103, mean 64 mmHg. Calculated aortic valve area 0.41 cm??. There is mild aortic regurgitation Thickened mitral leaflets. Mitral annular calcification. Moderate mitral regurgitation Normal tricuspid valve with moderate regurgitation. Estimated right ventricular systolic pressure is 47 mmHg Wall motion Left Ventricle The left ventricle is normal size. The left ventricular systolic function is normal. The left ventric ular ejection fraction is within the normal range. Mild to moderate concentric left ventricular hyper trophy. There is normal LV segmental wall motion. There is no ventricular septal defect visualized. L VEF is 58%. Right Ventricle Right ventricle is grossly normal in size. Right ventricular systolic function is grossly normal. The RVSP is 47.2mmHg. Atria Left atrium is moderate to severely dilated. Right atrium is moderately dilated. The interatrial sept um is intact with no evidence for an atrial septal defect. Aortic Valve Aortic valve is calcified. Number of aortic valve leaflets could not be assessed. Severe critical aor tic stenosis. Peak aortic valve gradient is103.1_mmHg. Highest mean aortic valve gradient is 64.3mmHg . Calculated MATTEO by the continuity equation is 0.41_cm2. Mild aortic regurgitation. Mitral Valve Moderate to severe mitral annular calcification. Thickened mitral leaflets No evidence of mitral valv e stenosis. Moderate mitral regurgitation. Tricuspid Valve The tricuspid valve is normal in structure. There is no tricuspid valve stenosis. Moderate tricuspid regurgitation. Pulmonic Valve The pulmonary valve is normal in structure. There is no pulmonic valvular stenosis. Trace pulmonic re gurgitation. Great Vessels The aortic root is normal in size. The ascending aorta is normal in size. Aortic arch is not well vis ualized. The IVC collapses <50% with inspiration. Pericardium There is no pericardial effusion. 2D Dimensions IVSD d PLAX 1.23 cm F: 0.6-1.0 LV Vol A2C d MOD 106.5 mL LVPW d PLAX 1.23 cm F: 0.6 - 1.0 LV Vol A4C d MOD 94.8 mL LVID d PLAX 4.51 cm F: 3.8 - 5.2 LA vol/ BSA A4C s A-L 71.6 mL/m2 LVDs 3.05 cm F: 2.2 - 3.5 LA Area A4C s MOD 28.65 cm2 Ao Root d 2.93 cm F: 2.7 - 3.3 LV EF A4C MOD 59.3 % RA Area A4C 24.79 cm2 LV EF A2C MOD 56.0 % RA Vol/ BSA A4C s A-L 58.8 mL/m2 LV EF Biplane MOD 58.0 % Ao Asc Diam d 2.65 cm F: 2.3 - 3.1 SV 58.97 mL LV EF Teichholz 59.3 % SV Index 41.42 mL/m2 LVEF (Carrasco's) 58.02 % F: 54 - 74 LV Volume 86.52 mL F: 46 - 106 LV Volume Index 60.92 mL/m2 F: 29 - 61 LV Vol Biplane MOD 101.6 mL FS 31.35 % M-Mode TAPSE 1.41 cm (M/F) >1.7 LV Diastology MV E' medial 0.090 (>0.07 m/s) MV E Vmax 1.90 (0.4-1.3 m/s) LV E/e MED 21.20 (<14) MV E' lateral 0.062 (>0.1 m/s) LV E/e LAT 30.70 (<14) MV E/E' medial 21.24 MV E/E' lateral 30.74 Aortic Valve LVOT Area 2.84 cm2 AoV Area Vmax 0.41 cm2 LVOT Vmax 0.73 m/s AoV Area/ BSA (Vmax) 0.29 cm2/m2 LVOT Mean Daniel. 0.52 m/s MATTEO Mean Daniel. 0.38 cm2 LVOT Peak Grad 2.1 mmHg MATTEO Mean Daniel. Index 0.27 cm2/m2 LVOT Mean Grad 1.2 mmHg AR DT 2089 msec LVOT VTI 0.169 m AR PHT 606 msec LVOT Diam s 1.90 cm AoV Vmax 5.08 m/s Velocity Ratio 0.14 AoV Mean Daniel. 3.85 m/s AoV Peak Grad 103.1 mmHg LVOT SV 48.06 mL AoV Mean Grad 64.3 mmHg AoV VTI 1.208 m AoV Area VTI 0.40 cm2 AoV Area/ BSA (VTI) 0.28 cm/m2 Mitral Valve MV DT 224 (160-240 msec) MR Vmax 6.81 m/s MV PHT 65 msec MR VTI 1.981 m MV Area PHT 3.39 cm2 MR Peak Grad 185.6 mmHg MV VTI 0.433 m MR Mean Grad 124.7 mmHg MV VTI Annulus 0.424 m MR PISA Radius 0.82 cm MV Area VTI 1.09 (4.0-6.0 cm2) MR EROA 0.21 cm2 MR Aliasing Velocity 0.35 m/s MR PISA 4.18 cm2 Pulmonary Valve PV Vmax 1.21 (0.5-1.5 m/s) RVOT Peak Gr. 1.93 mmHg PV Peak Grad 5.8 mmHg RVOT Mean Gr. 0.85 mmHg PV Mean Grad 3.0 mmHg RVOT VTI 0.109 m PV VTI 0.209 m RVOT Vmax 0.69 m/s Tricuspid Valve TR Peak Grad 39.1 mmHg TR Vmax 3.13 m/s RA Pressure 8.00 mmHg RVSP (TR) 47.2 mmHg
--- NOTE | 2022-02-16 16:09 | W.INDIABCONS ---
Date of service: 02/16/22 Time of Service: 15:09 Diabetes Inpatient Consult Reason for Visit: dm DESCRIPTION/ASSESSMENT: Met with Leila today. Familiar with patient as seen her twice in outpatient setting for diabetes self management education. Leila was pleasantly confused today. SHe cannot explain recent weight loss, now with BMI of 18.3. She appears cachexic with loss temporal fat/muscle. Admitted with GI bleed. PMH: DM, CHF, CKD. Home meds include remeron 7.5 mg, [id number] mg BID. Currently prescribed 15 mg remeron to boost appetite. Following diabetic diet and completing about 50% of meals. Needs to complete >70% of meals to meet macronutrient needs. At nutritional risk and at risk for skin breakdown. INTERVENTION: will supplement with GLucerna BID and encourage po intake PLAN: will monitor weight, po intake and labs Time Spent in Nutritional Counseling and Treatment: 10 min
[2022-02-16] MEDS: Mirtazapine 15 MG TAB PO (21:33)
[2022-02-16] MEDS: dilTIAZem CD 120 MG CAPCR PO (21:33)
[2022-02-16] MEDS: Atorvastatin 40 MG TAB PO (21:33)
[2022-02-16] MEDS: Melatonin 3 MG TAB PO (21:33)
[2022-02-16] MEDS: Insulin Glargine 300 UNITS/3 ML PEN 20 UNITS SC (21:34)
[2022-02-17] VITALS (11 sets, daily range): BP systolic 102–143; BP diastolic 53–69; PULSE 72–95; RESP 18–20; TEMP 36.5–37.8; O2SAT 91–99
[2022-02-17] MEDS: Pantoprazole 40 MG VIAL IVP (08:24)
[2022-02-17] MEDS: Insulin Aspart 300 UNITS/3 ML PEN SC ×4 (08:25→21:25)
[2022-02-17] MEDS: Normal Saline Flush 10 ML SYR IVP (08:25)
--- NOTE | 2022-02-17 15:09 | IN_ITS ---
Date of service: 02/17/22 Time of Service: 15:09 PT Notes Visit Reasons: GI Bleed, CHF Physical Therapy Inpatient Initial Evaluation Date: 02/17/2022 Referring Doctor: Theresa Smith NP PT Orders: PT CONSULT: Eval/treat Precautions: Fall. Standard. Activity as tolerated. Patient Profile/Admitting Diagnosis: Leila is an 82-year-old female with diagnoses of a GI bleed, acute on chronic congestive heart failure with an EF of 69%, type 2 diabetes mellitus with renal manifestations, chronic kidney disease, critical aortic valve stenosis, sleep difficulties, atrial fibrillation, and TACHO. PMHX: All Active Problems?(Updated 02/13/22 @ 15:01 by Theresa Smith NP) DVT prophylaxis (Acute) Acute on chronic heart failure (Acute) GI bleed (Chronic) Vitamin B12 deficiency (Acute) Anemia (Chronic) Physical deconditioning (Acute) Peripheral neuropathy (Acute) CKD (chronic kidney disease) (Chronic) Weight loss (Acute) Critical aortic valve stenosis (Acute) TTE 01/17/20: Critical Aortic Stenosis (0.5 cm2, 43 mmHg) Mitral Valve Stenosis Tinnitus (Acute) Asthma without status asthmaticus (Acute 02/06/14) Mitral valvular stenosis and aortic valvular stenosis (Acute 02/06/14) 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 Allergic rhinitis (Chronic 02/06/14) Anemia (Chronic) AF (atrial fibrillation) (Chronic) CHF (congestive heart failure) (Chronic) Medical History? Hip fracture, intertrochanteric Muscle pain (11/14/15) buttock and ant thigh, with exertion, ? spinal caludication Pneumonia SCCA (squamous cell carcinoma) of skin Derm: Dr Simpson; Left jewish SCCA 12/2016, 06/2018; Frontal parietal scalp SCCA 06/2018; left cheek 09/2019 Stroke due to embolism (~01/17/20) Surgical History? Cataract, rgt eye? (06/24/15) Dilation and curettage 1959's Extraction of cataract (06/10/15) Left eye- Dr. Russel erickson post hip surgery (~09/2020) LEFT intra trochanteric fx s/p cephalo medullary nailing Tonsillectomy and adenoidectomy Social History/Home Situation: Lives alone in a private home. Grandson gayathri regularly visits and brings in her meals. Has a cleaning lady who comes every weak for solid waste disposal manager. Equipment Owned/DME: [employer] Subjective: Reports pain in both legs at rest and with ambulation. Objective: General Observation: Seated on chair. Faril-looking. On 1 liter of oxygen per minute via NC. Mental Status: Alert. Seems confused, knows that she is in the town of [facility] but cannot name the hospital she is in. First she said that her son brings her meals but then later on said that it is her grandson. Able to follow single step commands bit required repeptition of instructions partly because of hearing impairment and of confusion. Unsure of how she has been managing her medications. Pain: Reports moderate pain in B legs Vital Signs: WNL as clsoly monitored by nursing staff ROM: Right Upper Extremity: Shoulder Flexion WFL. Shoulder abduction WFL. Elbow flexion WFL. Wrist flexion WFL. Functional opening and closing of hand WFL. Left Upper Extremity: Shoulder Flexion WFL. Shoulder abduction WFL. Elbow flexion WFL. Wrist flexion WFL. Functional opening and closing of hand WFL. Right Lower Extremity: Hip flexion WFL. Hip abduction WFL. Knee flexion WFL. Ankle dorsiflexion WFL. Ankle plantarflexion WFL. Left Lower Extremity: Hip flexion WFL. Hip abduction WFL. Knee flexion WFL. Ankle dorsiflexion WFL. Ankle plantarflexion WFL. Strength: Right Upper Extremity: Shoulder flexors 3+/5. Shoulder abductors 3+/5. Elbow flexors 3+/5. Elbow extensors 3+/5. [employer] strong. Left Upper Extremity: Shoulder flexors 3+/5. Shoulder abductors 3+/5. Elbow flexors 3+/5. Elbow extensors 3+/5. [employer] strong. Right Lower Extremity: Hip flexors 4-/5. Hip abductors 4-/5. Knee flexors 4-/5. Knee extensors 4-/5. Ankle dorsiflexors 4-/5. Ankle plantarflexors 4-/5. Left Lower Extremity: Hip flexors 4-/5. Hip abductors 4-/5. Knee flexors 4-/5. Knee extensors 4-/5. Ankle dorsiflexors 4-/5. Ankle plantarflexors 4-/5. Bed Mobility/Transfers: Sit to supine standby assist Sit to stand standby assist Stand to sit standby assist Bed to bedside commode standby assist Bedside commode to bed standby assist Bed to reclining chair standby assist Reclining chair to bed standby assist Gait: Instructed patient with level surface ambulation of 200 feet requiring contact-guard assist. Marlyn decreased. Required 1 seated rest due to inc reased pain in both legs and fatigue. Kyphotic. Balance: Static Sitting: Good Dynamic Sitting: Good Static Standing: Fair Dynamic Standing: Fair Special Tests: Mobility Limitations Standardized Measure [facility] 6 clicks Basic Mobility Inpatient Short Form: Raw Score: 22 CMS Score: 21% deficit 4-stage Balance test: Unable to maintain all 4 positions for 10 seconds signifying at high risk for falls. Informed Consent/Education: Patient was instructed in purpose of PT consult and plan of care. Agreeable to proceed with established PT POC to achieve personal goals. ASSESSMENT: Only requires contact guard assist for ambulation using FWW. Due to age, mild to moderate confusion, and lack of supervision at home, patient may benefit from an assisted living environment to ensure that medications are managed well, nutritional intake is maximized, and falls are mitigated timely. May also do well in a supervised living environment or 24/7 supervision at home. Will continue to assess progress towards goal and recommend discharge destination as appropriate. Patient presents with clinical signs and symptoms consistent with current/admitting diagnoses that have resulted to mobility limitations, gait instability, generalized weakness, and overall ADL decline as demonstrated by the following impairment level findings: 1. Decreased strength to B UE/LE major muscle groups 2. Impaired sitting/standing balance 3. Impaired activity tolerance 4. Shortness of breath 5. Swelling in B feet Impairments are contributing to the following functional limitations: 1. Difficulty with ambulation without assistive device and physical assistance 2. Increased completion time for mobility ADL performance 3. Increased risk for falls 4. Difficulty with managing steps alone safely Patient is assessed as a 31757 moderate complexity based on the following: History: 82-year-old female with past medical history as indicated above Examination: Demonstrable impairment in strength, balance, and mobility level with underlying impairments and functional limitations as exhibited above as well as deficit score of 21% utilizing the [facility] Mobility Inpatient Short Form Presentation: Evolving Decision Makin moderate complexity Goals: Goals X1 week 1. Supine-Sit independent 2. Sit-Supine independent 3. Sit-Stand independent 4. Stand-Sit independent with FWW 5. Bed-Chair independent with FWW 6. Chair-Bed independent with FWW 7. Independent gait on level surface with use of FWW for at least 300 feet without report of pain nor dyspnea 8. Independent stair negotiation while holding onto B rails for at least 5 steps without report of pain nor dyspnea 9. Independent with home exercise program 10. Good static and dynamic standing balance/tolerance Plan of Care/Treatment Plan: 1-2x/day, 7 days/week x 1 week. Plan of care has been reviewed with the FUEL CELL REPAIRER providing the service under Physical Therapy direction. Initiate Physical Therapy intervention for pain management as needed, strengthening, bed mobility, transfers, gait, stairs, balance training, and use of assistive device. DISCHARGE RECOMMENDATIONS: [facility] vs. SNF vs. 11/04 care at home TREATMENT CODE/TIME: 61529 x 25 minutes, 42170 x 27 minutes beginng at 11:48 Am and 15:09 PM. Thank you for the opportunity to participate in the care of this patient. Marcella Cifuentes PT, DPT, CLT [facility] [place], [place]
--- NOTE | 2022-02-17 15:38 | PGE_ITS ---
Date of Service Date of service: 02/17/22 Time of Service: 14:40 Assessment and Plan Assessment and plan (1) Hypoxia: Status: Acute Assessment and plan: unable to wean, requiring oxygen with ambulation and at rest. qualified for home oxygen likely d/t severe , but refuses TAVR (2) GI bleed: Status: Chronic Assessment and plan: H&H stable with no evidence of bleeding has been type and screened but has not needed blood eliquis on hold PPI changed to famotidine closely monitor (3) Acute on chronic heart failure: Status: Acute Assessment and plan: last echo in Sep 2020 shows EF 69%, no left ventricular segmental wall motion abnormalities, critical aortic stenosis, worsening since december 2019 received IV lasix in the ED, use cautiously in setting of severe monitor I&O closely, daily weights obtain echo, cards consult requiring oxygen continue to work on weaning (4) Type II diabetes mellitus with renal manifestations: Status: Chronic Assessment and plan: last A1C in December of this year is 7.3 will continue carb controlled diet check blood sugars ac/hs with sliding scale as needed, Glucose 249 today - down from 475 yesterday hold meformin while hospitalized Qualifiers: Chronic kidney disease stage: stage 3 (moderate) Chronic kidney disease stage 3 subtype: stage 3a (GFR 45-59) Diabetes mellitus complication detail: with chronic kidney disease Diabetes mellitus nursing home insulin use: unspecified adjunct faculty for medical terminology insulin 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 Qualifiers: Chronic kidney disease stage: unspecified stage Qualified Code(s): N18.9 - Chronic kidney disease, unspecified (6) Critical aortic valve stenosis: Status: Acute Assessment and plan: followed by [facility] [place]. declines surgical repair/replacement (7) Sleep difficulties: Status: Acute Assessment and plan: Had some increased confusion and inability to sleep continue increased dose of mirtazapine, add melatonin will add melatonin (8) AF (atrial fibrillation): Status: Chronic Assessment and plan: rate controlled. Continue diltiazem apixaban on hold in setting of GI bleeding (9) Moderate obstructive sleep apnea: Status: Chronic Assessment and plan: home CPAP (10) DVT prophylaxis: Status: Acute Assessment and plan: teds and scd only in setting of gi bleeding apixaban is placed on hold. palliative care consult placed and pending discussed with Dr Torres. Subjective Subjective Patient reports: no new complaints, tolerating liquids well, tolerating a regular diet, shortness of breath (with activity and desats) and afebrile Exam Const General: cooperative, frail appearing and ill appearing chronically Nutritional Appearance: thin Orientation: alert, awake and oriented x3 Chest Chest: normal inspection of the chest Resp Effort & Inspection: no respiratory distress and tachypneic Auscultation: diminished lung sounds Cardio Heart Sounds: murmur systolic / GI Inspection: normal to inspection Palpation: soft and nontender Neuro General: patient alert, patient awake and patient oriented x3 Extrem General: normal to inspection, full ROM and no pedal edema Objective Last Vital Signs Temp 37.8 C H 02/17/22 15:21 Pulse 94 H 02/17/22 15:21 Resp 18 02/17/22 15:21 BP 116/54 L 02/17/22 15:21 Pulse Ox 98 02/17/22 15:21
--- NOTE | 2022-02-17 16:24 | PDOC.CMPRO ---
- If Service Date Differs Date of service: 02/17/22 Time of Service: 16:24 Care Management Progress Note S/O: Leila had just worked with Maricel from PT, when CM met with her. Maricel shared her concerns with Leila and CM about Leila discharging home, as she lives alone and is a high fall risk. Leila also agrees that her risk of falling is the one thing that she worries about going home. Leila shared that her family has raved about the [facility] and she would like to see if she could possibly go there. 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 Also, Palliative consult is ordered. CM notified palliative office and will continue to support discharge planning needs. A: 82 year old female admitted to [facility] on 02/13/22 for GI bleed, Acute on chronic heart failure, Type II diabetes mellitus with renal manifestations, SOB P:Anticipate, Leila will discharge home with [facility] services and [place] [facility] [facility] (if indicated) vs. discharge to an assisted living facility when medically ready per provider. Leila will follow up with her community providers and discharge plan of care as prescribed.
--- NOTE | 2022-02-17 16:55 | CHAPLAIN ---
Leila was in her chair watching tv. She asked for help with the volume. I explained my role and offered support. I'll continue to visit.
[2022-02-17] MEDS: Acetaminophen 325 MG TAB 650 MG PO (21:23)
[2022-02-17] MEDS: Melatonin 3 MG TAB PO (21:24)
[2022-02-17] MEDS: Mirtazapine 15 MG TAB PO (21:24)
[2022-02-17] MEDS: dilTIAZem CD 120 MG CAPCR PO (21:24)
[2022-02-17] MEDS: Atorvastatin 40 MG TAB PO (21:24)
[2022-02-17] MEDS: Insulin Glargine 300 UNITS/3 ML PEN 20 UNITS SC (21:25)
--- NOTE | 2022-02-18 01:18 | NUR.NOTE ---
Nursing Note: patient rang stating that she needed to go to the bathroom. Patient asked is it hot in here? I am sweating! Patient is diaphoretic. Patient assisted to commode and back to bed. Her blood sugar was checked and was 95. Patient requested candy crackers with peanut butter and a diet coke. Both were provided. Call roy within reach. Will continue to monitor.
[2022-02-18 02:31] VITALS: BP 142/68; PULSE 82; RESP 18; TEMP 36.6; O2SAT 92
[2022-02-18 07:39] VITALS: PULSE 71
[2022-02-18 07:53] VITALS: BP 129/75; PULSE 82; RESP 16; TEMP 37.2; O2SAT 99
[2022-02-18] MEDS: Acetaminophen 325 MG TAB 650 MG PO (08:14)
--- NOTE | 2022-02-18 09:29 | PDOC.CMPRO ---
- If Service Date Differs Date of service: 02/18/22 Time of Service: 09:29 Care Management Progress Note S/O: PT recommend's the following safe discharge options: [facility] vs. SNF vs. 24/ care at home. Nafisa will be here at 2pm to discuss options. Antonio will either attend via phone or in person. Nafisa will call [facility] to see about availability. A: 82 year old female admitted to [facility] on 02/13/22 for GI bleed, Acute on chronic heart failure, Type II diabetes mellitus with renal manifestations, SOB P:Anticipate, Leila will discharge home with [facility] services and [place] [facility] (if indicated) vs. discharge to an assisted living facility when medically ready per provider. Leila will follow up with her community providers and discharge plan of care as prescribed.
--- NOTE | 2022-02-18 10:41 | PT.INTREAT ---
Date of service: 02/18/22 Time of Service: 10:04 PT Notes Visit Reasons: GI Bleed, CHF Inpatient Physical Therapy Treatment Note [facility] Date: 02/18/2022 PRECAUTIONS: Fall, Activity as tolerated SUBJECTIVE: Leila states that she has been having some pain in her R LE, which has occurred before. She is pleasant and agreeable to participating in PT, stating I'll do the best I can with this leg. OBJECTIVE: PAIN: Patient c/o R LE pain in upper thigh when starting with gait training BED MOBILITY/TRANSFERS Sit-stand: SBA Stand-sit: SBA GAIT Assistive Device: FWW Weight bearing: Full Assist: SBA Distance: 120' + 30' + 50' in a.m.; 150' in p.m. Deviation: Standing rest x1, seated rest x1 in a.m.; no rest break in p.m. VITALS: 96-97% on RA with gait training (finger probe utilized) THEREX: Patient was instructed in an UE and LE strengthening program, completed in a seated position, to include: ankle pumps, LAQ, hip flexion, hip abduction and shoulder flexion. STAIRS: Up/down 3x4 and 2x6 using B rails and a step-to pattern and supervision ASSESSMENT: Patient tolerated session well, although with minimal complaint of superior thigh pain on R. She was able to tolerate the addition of stair training without complaint. PLAN: Continue with gait training and global strengthening for improved mobility and activity tolerance. TREATMENT CODE/TIME: Session 1: 26 minutes; 58631, [id number] (10:04) Session 2: 15 minutes; 37502 (13:24)
[2022-02-18 11:36] VITALS: BP 115/62; PULSE 72; RESP 18; TEMP 36.9; O2SAT 97
[2022-02-18] MEDS: Insulin Aspart 300 UNITS/3 ML PEN SC ×2 (11:45→17:01)
--- NOTE | 2022-02-18 12:01 | W.PM.PROGNOT ---
Date of Service Date of service: 02/18/22 Time of Service: 11:01 Assessment and Plan Assessment and plan (1) Hypoxia: Status: Acute Assessment and plan: Oxygen requirements have decreased; she has been on room air and maintains SPO2 > 92% continues to be on room air, no oxygen requirements - is able to walk in the [place] 200 ft without having SOB or desating likely d/t severe , but refuses TAVR (2) GI bleed: Status: Chronic Assessment and plan: H&H stable with no evidence of bleeding has been type and screened but has not needed blood eliquis on hold PPI changed to famotidine closely monitor (3) Acute on chronic heart failure: Status: Acute Assessment and plan: last echo in Sep 2020 shows EF 69%, no left ventricular segmental wall motion abnormalities, critical aortic stenosis, worsening since december 2019 received IV lasix in the ED, use cautiously in setting of severe monitor I&O closely, daily weights - weight stable obtain echo, cards consult (4) Type II diabetes mellitus with renal manifestations: Status: Chronic Assessment and plan: last A1C in December of this year is 7.3 will continue carb controlled diet check blood sugars ac/hs with sliding scale as needed, hold meformin while hospitalized Qualifiers: Chronic kidney disease stage: stage 3 (moderate) Chronic kidney disease stage 3 subtype: stage 3a (GFR 45-59) Diabetes mellitus complication detail: with chronic kidney disease Diabetes mellitus detention insulin use: 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 Qualifiers: Chronic kidney disease stage: unspecified stage Qualified Code(s): N18.9 - Chronic kidney disease, unspecified (6) Critical aortic valve stenosis: Status: Acute Assessment and plan: followed by [facility] [place]. declines surgical repair/replacement (7) Sleep difficulties: Status: Acute Assessment and plan: Slept well last night, no confusion (8) AF (atrial fibrillation): Status: Chronic Assessment and plan: rate controlled. Continue diltiazem apixaban on hold in setting of GI bleeding (9) Moderate obstructive sleep apnea: Status: Chronic Assessment and plan: home CPAP (10) DVT prophylaxis: Status: Acute Assessment and plan: teds and scd only in setting of gi bleeding apixaban is placed on hold. palliative care consult placed and pending discussed with Dr Joy Subjective Subjective Patient reports: no new complaints and tolerating liquids well Exam Const General: cooperative, frail appearing and ill appearing chronically Nutritional Appearance: thin Orientation: alert, awake and oriented x3 Chest Chest: normal inspection of the chest Resp Effort & Inspection: no respiratory distress and tachypneic Auscultation: diminished lung sounds Cardio Heart Sounds: murmur systolic / GI Inspection: normal to inspection Palpation: soft and nontender Neuro General: patient alert, patient awake and patient oriented x3 Extrem General: normal to inspection, full ROM and no pedal edema Objective Last Vital Signs Temp 36.9 C 02/18/22 11:36 Pulse 72 02/18/22 11:36 Resp 18 02/18/22 11:36 BP 115/62 02/18/22 11:36 Pulse Ox 97 02/18/22 11:36 Reviewed Pertinent PMH: Yes
[2022-02-18] MEDS: Famotidine 20 MG TAB PO (12:37)
[2022-02-18 15:23] VITALS: PULSE 88
[2022-02-18 15:36] VITALS: BP 120/52; PULSE 89; RESP 18; TEMP 37.6; O2SAT 99
--- NOTE | 2022-02-18 15:49 | PDOC.HHF2F_ITS ---
Home Health Certification Home Health Certification: I certify that Leila Moore was seen by Gloria Crouch NP on 02/18/22 and that I had a [id number] encounter with this patient that meets the physician face to face encounter requirements. 2. Clinical Findings Supporting Skilled Need and Homebound Status I certify that home health services are medically necessary, include either intermittent retirement and/or physical/speech therapy, and that this patient is homebound in that absences from the home require considerable and taxing effort and are infrequent or of short duration, or are attributable to the need to receive medical care. ?[X] (a) Attached documentation from encounter provides clinical findings supporting skilled need and homebound status (including what assistance patient requires to leave the home). The encounter with the patient was in whole, or in part, for the following medical condition, which is the primary reason for home health care:? GI Bleed, CHF Longterm:? Educate and instruct on the disease processes, recognizing early symptoms, healthy food choices including limitation of sodium and fluids and medication management. Review strategies to manage the disease, safety and interventions to prevent hospitalizations. Daily weights, nutrition evaluation and education, respiratory and cardiac assessment and intervention. Assess need of home oxygen.? Consider and assess for ability of tele-monitoring, nephew is available daily for assistance. Physical Therapy: Assist with education to help patient strengthen muscles to avoid falls and improve endurance.? Encourage active and passive exercises, increase activity as tolerated.? Occupational Therapy:? Evaluate and develop a plan that will teach energy conservation techniques, and organize daily activities to maximize independence.? ?Homebound: Leila is unable to leave her home without becoming acutely short of breath and she is unable to ambulate outside without assistance of her walker and another person.? ? 3. Certification and Authentication I certify that I composed the above information based on my clinical judgement relating to this patient's medical condition and, if applicable, clinical findings communicated to me by the NPP or inpatient physician who performed the Home Health Referral.? All further orders will be obtained through Sue Klein APRN
--- NOTE | 2022-02-18 15:49 | W.PM.DS.N ---
DS: Diagnosis Discharge Diagnosis (1) Hypoxia: Status: Acute (2) GI bleed: Status: Chronic (3) Acute on chronic heart failure: Status: Acute (4) Type II diabetes mellitus with renal manifestations: Status: Chronic (5) CKD (chronic kidney disease): Status: Chronic (6) Critical aortic valve stenosis: Status: Acute (7) Sleep difficulties: Status: Acute (8) AF (atrial fibrillation): Status: Chronic (9) Moderate obstructive sleep apnea: Status: Chronic Discharge Plan Disposition Condition: Serious Discharge Details Reason For Visit: GI Bleed, CHF Admit Date/Time: 02/13/22 14:15 Admit Provider: Hakeem Torres Attending Provider: Hakeem Torres Primary Care Provider: Sue Klein Home Meds and New Rx's Prescriptions: New pantoprazole 40 mg tablet,delayed release (DR/EC) 40 mg PO BID Qty: 60 0RF Continued mirtazapine 7.5 mg tablet 7.5 mg PO QHS Qty: 90 0RF diltiazem HCl 120 mg capsule,extended release 24hr 120 mg PO HS Qty: 90 3RF Rx Instructions: to control heart rate acetaminophen 325 mg capsule 650 mg PO ONCE PRN (Reason: pain) cyanocobalamin (vitamin B-12) 1,000 mcg tablet 1,000 mcg PO DAILY Qty: 90 3RF magnesium oxide 400 mg magnesium capsule 400 mg PO DAILY Qty: 90 3RF Rx Instructions: Administer at least 2 hours apart from other medications metformin [Glucophage] 850 mg tablet 850 mg PO BID Qty: 180 3RF Rx Instructions: to control blood sugars imiquimod 5 % cream in packet 1 applic topical .3 times per week Rx Instructions: use 3 times weekly for 4 weeks then discontinue atorvastatin 40 mg tablet 40 mg PO HS Qty: 90 3RF apixaban 2.5 mg tablet 2.5 mg PO BID Qty: 180 3RF No Action (DME) pen needle, diabetic [Pen Needle] 31 gauge x 5/16 needle See Rx Instructions .ROUTE .MEDSUPPLY Qty: 100 3RF Rx Instructions: As directed to administer insulin QD. Dispense covered brand. (DME) blood-glucose meter Misc See Rx Instructions .ROUTE .MEDSUPPLY Qty: 1 0RF Rx Instructions: As directed to check blood glucose daily. On insulin. Dispense covered brand. (DME) Blood Glucose Test Strip See Rx Instructions .ROUTE .MEDSUPPLY Qty: 100 3RF Rx Instructions: As directed to check blood glucose once daily. On insulin. Dispense covered brand. (DME) lancets Misc See Rx Instructions .ROUTE .MEDSUPPLY Qty: 100 3RF Rx Instructions: As directed to check blood glucose daily. On insulin. Dispense covered brand. Discharge Instructions Instructions: Gastrointestinal Bleeding (DC), Fall Prevention for Older Adults (DC), Heart Failure (DC), Diabetes and Nutrition (DC), Type 2 Diabetes in the Older Adult (DC) Activity:: Activity as Tolerated Diet:: Low Sodium DS: Data Vitals/I&O Vitals and I&O: Vital Signs Temperature 37.6 C H 02/18/22 15:36 Temperature Source Tympanic 02/18/22 15:36 Pulse 89 02/18/22 15:36 Pulse Rhythm Irregular 02/18/22 08:16 Pulse 90 02/13/22 13:00 Respiratory Rate 18 02/18/22 15:36 Respiratory Effort 02/18/22 08:16 Respiratory Depth Normal 02/18/22 08:16 Respiratory Pattern Normal 02/18/22 08:16 Blood Pressure 120/52 L 02/18/22 15:36 Blood Pressure Mean 70 02/13/22 12:46 Pulse Oximetry 99 02/18/22 15:36 Oxygen Delivery Method Room Air 02/18/22 15:36 Oxygen Flow Rate 0 02/18/22 15:36 Pain Level 0 02/18/22 15:36 Comment 02/17/22 20:29 Intake & Output 02/17/22 02/18/22 02/18/22 23:59 11:59 23:59 Intake Total 240 / 480 370 / 620 250 / 620 Output Total 1400 / 2650 1100 / 1350 250 / 1350 Balance -1160 / -2170 -730 / -730 0 / -730 Weight 44.5 kg Intake: Oral 240 / 480 370 / 620 250 / 620 Output: Urine 1400 / 2650 1100 / 1350 250 / 1350 Other: Urine Color Yellow Yellow Yellow Urine Appearance Clear Clear Clear Urine Odor Normal None Comment some urine was from previous tolieting. Voiding Methods Bedside Commode Bedside Commode Toilet [facility], [facility] All Active Problems (Updated 02/17/22 @ 15:42 by Theresa Smith NP) Hypoxia (Acute) Sleep difficulties (Acute) DVT prophylaxis (Acute) Acute on chronic heart failure (Acute) GI bleed (Chronic) Vitamin B12 deficiency (Acute) Anemia (Chronic) Physical deconditioning (Acute) Peripheral neuropathy (Acute) CKD (chronic kidney disease) (Chronic) Weight loss (Acute) Critical aortic valve stenosis (Acute) TTE 01/17/20: Critical Aortic Stenosis (0.5 cm2, 43 mmHg) Mitral Valve Stenosis Tinnitus (Acute) Asthma without status asthmaticus (Acute 02/06/14) Mitral valvular stenosis and aortic valvular stenosis (Acute 02/06/14) 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 Allergic rhinitis (Chronic 02/06/14) Anemia (Chronic) AF (atrial fibrillation) (Chronic) CHF (congestive heart failure) (Chronic) Medical History Hip fracture, intertrochanteric Muscle pain (11/14/15) buttock and ant thigh, with exertion, ? 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 Morales Status post hip surgery (~09/2020) LEFT intra trochanteric fx s/p cephalo medullary nailing Tonsillectomy and adenoidectomy Family History Mother , 90 Alzheimer disease Father , age 64 esophageal CA, ETOH Alcohol abuse Personal history of malignant neoplasm esophageal Brother Stroke Seizures Social History Smoking/Tobacco Use Status: Former Tobacco Use Smoking risk assessment performed?: Yes Alcohol Intake: never Drug use: Never Substance use type: does not use Adopted: No Foster care: No Number of Children: 2 current occupation: retired [employer] Current gender identity: female Other: 2 children, 1 What is your relationship status?: Panel score (0-1 are the most socially isolated patients): 0 What type of physical activity do you participate in: none Seatbelt use: always Drive intox or ride w/intox fence post driver: No Water heater temp set <120 deg: Yes Working smoke detector in home: Yes Fire extinguisher in home: No Carbon monox detector in home: Yes Do you feel safe at home: Yes Do you feel safe in your relationship?: Yes Victim of emotional abuse: No Victim of sexual abuse: No Would you like helpful sources: No
--- NOTE | 2022-02-18 16:26 | DSE_ITS ---
DS: Diagnosis Discharge Diagnosis (1) Hypoxia: Status: Acute (2) GI bleed: Status: Chronic (3) Acute on chronic heart failure: Status: Acute (4) Type II diabetes mellitus with renal manifestations: Status: Chronic (5) CKD (chronic kidney disease): Status: Chronic (6) Critical aortic valve stenosis: Status: Acute (7) Sleep difficulties: Status: Acute (8) AF (atrial fibrillation): Status: Chronic (9) Moderate obstructive sleep apnea: Status: Chronic Discharge Plan Disposition Patient Disposition: HOME W/HOME HEALTH SERVICE Condition: Serious Discharge Details Reason For Visit: GI Bleed, CHF Admit Date/Time: 02/13/22 14:15 Admit Provider: Hakeem Torres Attending Provider: Hakeem Torres Primary Care Provider: Sue Klein Hospital Course Hospital Course: Leila presented to the ED with shortness of breath and bright red rectal bleeding. She did not have chest pain. She is on eliquis at home for Afib.? It was held during hospitalization. She declined EGD.? She has history of severe aortic stenosis but declines surgical repair/replacement.? She did not receive any blood products during her stay. Her hemoglobin leveled; however she remained anemic.? She was unable to speak in full sentences on admission. oxygen slowly weaned off of oxygen and on discharge is able to walk 200 feet with her walker without becoming acutely short of breath.? She lives alone, however she has family that checks on her frequently.? She does have good support in terms of resources available to her.?Case managment and I had a conversation with family regarding her disposition. Leila did not want to go anywhere but home. We voiced concern about her safety; she and the family advised she has only fallen once, when she broke her hip. She insisted she had the strength to go home. We did a walk in the [place] and she did do quite well. She is discharged home with a new prescription for pantoprazole, eliquis resumed and started with home health services.? This plan was agreed upon by her daughter, nephew and herself.? Home Meds and New Rx's Prescriptions: New pantoprazole 40 mg tablet,delayed release (DR/EC) 40 mg PO BID Qty: 60 0RF Continued mirtazapine 7.5 mg tablet 7.5 mg PO QHS Qty: 90 0RF diltiazem HCl 120 mg capsule,extended release 24hr 120 mg PO HS Qty: 90 3RF Rx Instructions: to control heart rate acetaminophen 325 mg capsule 650 mg PO ONCE PRN (Reason: pain) cyanocobalamin (vitamin B-12) 1,000 mcg tablet 1,000 mcg PO DAILY Qty: 90 3RF magnesium oxide 400 mg magnesium capsule 400 mg PO DAILY Qty: 90 3RF Rx Instructions: Administer at least 2 hours apart from other medications metformin [Glucophage] 850 mg tablet 850 mg PO BID Qty: 180 3RF Rx Instructions: to control blood sugars imiquimod 5 % cream in packet 1 applic topical .3 times per week Rx Instructions: use 3 times weekly for 4 weeks then discontinue atorvastatin 40 mg tablet 40 mg PO HS Qty: 90 3RF apixaban 2.5 mg tablet 2.5 mg PO BID Qty: 180 3RF No Action (DME) pen needle, diabetic [Pen Needle] 31 gauge x 5/16 needle See Rx Instructions .ROUTE .MEDSUPPLY Qty: 100 3RF Rx Instructions: As directed to administer insulin QD. Dispense covered brand. (DME) blood-glucose meter [facility] See Rx Instructions .ROUTE .MEDSUPPLY Qty: 1 0RF Rx Instructions: As directed to check blood glucose daily. On insulin. Dispense covered brand. (DME) Blood Glucose Test Strip See Rx Instructions .ROUTE .MEDSUPPLY Qty: 100 3RF Rx Instructions: As directed to check blood glucose once daily. On insulin. Dispense covered brand. (DME) lancets [facility] See Rx Instructions .ROUTE .MEDSUPPLY Qty: 100 3RF Rx Instructions: As directed to check blood glucose daily. On insulin. Dispense covered brand. Discharge Instructions Instructions: Heart Failure (DC), Gastrointestinal Bleeding (DC), Fall Prevention for Older Adults (DC), Type 2 Diabetes in the Older Adult (DC), Diabetes and Nutrition (DC) Stand Alone Forms: Nursing Discharge Form Referrals: Sue Klein NP [Primary Care Provider] - (Please call Tuesday to make a follow up appointment for 1-2 weeks.) Activity:: Activity as Tolerated Equipment/Supplies:: No Equipment Needed Diet:: Low Sodium Discharge Orders Discharge Orders: Discharge Order (Routine); Ordered 02/18/22 Ordered By: Gloria Crouch DS: Summary Summary Time spent discussing smoking cessation with patient: more than 10 minutes Time Spent with Patient providing and/or coordinating discharge services: Less than 30 minutes Status at Discharge Functional status at discharge: uses cane/walker Overall status at discharge: patient is progressing back to baseline Mental Status: mental status grossly normal Speech and Movement: speech and movement normal Mood: congruent mood Affect: normal affect Quality: AMI Clinical Trial Participant: No Exam Const General: cooperative, frail appearing and ill appearing chronically Nutritional Appearance: thin Orientation: alert, awake and oriented x3 Neck Neck: no lymphadenopathy Chest Chest: normal inspection of the chest Resp Effort & Inspection: normal respiratory effort, able to speak in complete sentences, no pursed lip breathing, no respiratory distress and no retractions Auscultation: diminished lung sounds Cardio Jugular venous pressure: no JVD Heart Sounds: murmur systolic / GI Inspection: normal to inspection Palpation: soft and nontender Neuro General: patient alert, patient awake and patient oriented x3 Extrem General: normal to inspection, full ROM and no pedal edema Psych Mental Status: mental status grossly normal Speech and Movement: speech and movement normal Mood: congruent mood Affect: normal affect DS: Data Vitals/I&O Vitals and I&O: Vital Signs Temperature 37.6 C H 02/18/22 15:36 Temperature Source Tympanic 02/18/22 15:36 Pulse 89 02/18/22 15:36 Pulse Rhythm Irregular 02/18/22 08:16 Pulse 90 02/13/22 13:00 Respiratory Rate 18 02/18/22 15:36 Respiratory Effort 02/18/22 08:16 Respiratory Depth Normal 02/18/22 08:16 Respiratory Pattern Normal 02/18/22 08:16 Blood Pressure 120/52 L 02/18/22 15:36 Blood Pressure Mean 70 02/13/22 12:46 Pulse Oximetry 99 02/18/22 15:36 Oxygen Delivery Method Room Air 02/18/22 15:36 Oxygen Flow Rate 0 02/18/22 15:36 Pain Level 0 02/18/22 15:36 Comment 02/17/22 20:29 Intake & Output 02/17/22 02/18/22 02/18/22 23:59 11:59 23:59 Intake Total 240 / 480 370 / 620 250 / 620 Output Total 1400 / 2650 1100 / 1350 250 / 1350 Balance -1160 / -2170 -730 / -730 0 / -730 Weight 44.5 kg Intake: Oral 240 / 480 370 / 620 250 / 620 Output: Urine 1400 / 2650 1100 / 1350 250 / 1350 Other: Urine Color Yellow Yellow Yellow Urine Appearance Clear Clear Clear Urine Odor Normal None Comment some urine was from previous tolieting. Voiding Methods Bedside Commode Bedside Commode Toilet PFSH All Active Problems (Updated 02/17/22 @ 15:42 by Theresa Smith NP) Hypoxia (Acute) Sleep difficulties (Acute) DVT prophylaxis (Acute) Acute on chronic heart failure (Acute) GI bleed (Chronic) Vitamin B12 deficiency (Acute) Anemia (Chronic) Physical deconditioning (Acute) Peripheral neuropathy (Acute) CKD (chronic kidney disease) (Chronic) Weight loss (Acute) Critical aortic valve stenosis (Acute) TTE 01/17/20: Critical Aortic Stenosis (0.5 cm2, 43 mmHg) Mitral Valve Stenosis Tinnitus (Acute) Asthma without status asthmaticus (Acute 02/06/14) Mitral valvular stenosis and aortic valvular stenosis (Acute 02/06/14) 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 Allergic rhinitis (Chronic 02/06/14) Anemia (Chronic) AF (atrial fibrillation) (Chronic) CHF (congestive heart failure) (Chronic) Medical History Hip fracture, intertrochanteric Muscle pain (11/14/15) buttock and ant thigh, with exertion, ? spinal caludication Pneumonia SCCA (squamous cell carcinoma) of skin Derm: Dr Simpson; Left adventism SCCA 12/2016, 06/2018; Frontal parietal scalp SCCA 06/2018; left cheek 09/2019 Stroke due to embolism (~01/17/20) Surgical History Cataract, rgt eye (06/24/15) Dilation and curettage 1960's Extraction of cataract (06/10/15) Left eye- Dr. 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
--- NOTE | 2022-02-18 17:00 | CMDISCH_ITS ---
- If Service Date Differs Date of service: 02/18/22 Time of Service: 17:00 LACE Index Scoring Tool - Questions: Length of Stay (in days): 4 - 6 Acuity (Admit via E.D.?): Yes Comorbidities: Congestive Heart Failure E.D. Visits: 2 - Answers: Total Score: 11 Risk of Readmission: High Risk Care Management Discharge Reason for Hospitalization: GI bleed, Acute on chronic heart failure, Type II diabetes mellitus with renal manifestations, SOB Discharge Plan: Discharge home via private vehicle with family. New [facility] RN/PT/OT/INSULATION BOARD CALENDER OPERATOR services are ordered. Leila will call her PCP in the morning to schedule a follow up appointment. Discharge plan of care will be reviewed will patient and family. Family is very much in support of Leila discharging home. Patient/Family Education Needs: Review discharge instructions, limitations, medications and plan to follow up with community providers. ask me three. Services Needed at Discharge: Home Health Care Services ([facility] RN/PT/OT/INSULATION BOARD CALENDER OPERATOR (CM LMOM for [facility]).)
--- NOTE | 2022-02-18 17:52 | DSE_ITS ---
DS: Diagnosis Discharge Diagnosis (1) Hypoxia: Status: Acute (2) GI bleed: Status: Chronic (3) Acute on chronic heart failure: Status: Acute (4) Type II diabetes mellitus with renal manifestations: Status: Chronic (5) CKD (chronic kidney disease): Status: Chronic (6) Critical aortic valve stenosis: Status: Acute (7) Sleep difficulties: Status: Acute (8) AF (atrial fibrillation): Status: Chronic (9) Moderate obstructive sleep apnea: Status: Chronic Discharge Plan Disposition Patient Disposition: HOME W/HOME HEALTH SERVICE Condition: Serious Discharge Details Reason For Visit: GI Bleed, CHF Admit Date/Time: 02/13/22 14:15 Admit Provider: Hakeem Torres Attending Provider: Hakeem Torres Primary Care Provider: Sue Klein Hospital Course Hospital Course: Leila presented to the ED with shortness of breath and bright red rectal bleeding. She did not have chest pain. She is on eliquis at home for Afib.? It was held during hospitalization. She declined EGD.? She has history of severe aortic stenosis but declines surgical repair/replacement.? She did not receive any blood products during her stay. Her hemoglobin leveled; however she remained anemic.? She was unable to speak in full sentences on admission. oxygen slowly weaned off of oxygen and on discharge is able to walk 200 feet with her walker without becoming acutely short of breath.? She lives alone, however she has family that checks on her frequently.? She does have good support in terms of resources available to her.?Case managment and I had a conversation with family regarding her disposition. Leila did not want to go anywhere but home. We voiced concern about her safety; she and the family advised she has only fallen once, when she broke her hip. She insisted she had the strength to go home. We did a walk in the [place] and she did do quite well. She is discharged home with a new prescription for pantoprazole, eliquis resumed and started with home health services.? This plan was agreed upon by her daughter, nephew and herself.? Discussed with Dr Joy Home Meds and New Rx's Prescriptions: New pantoprazole 40 mg tablet,delayed release (DR/EC) 40 mg PO BID Qty: 60 0RF pantoprazole 40 mg tablet,delayed release (DR/EC) 40 mg PO BID Qty: 14 0RF Continued mirtazapine 7.5 mg tablet 7.5 mg PO QHS Qty: 90 0RF diltiazem HCl 120 mg capsule,extended release 24hr 120 mg PO HS Qty: 90 3RF Rx Instructions: to control heart rate acetaminophen 325 mg capsule 650 mg PO ONCE PRN (Reason: pain) cyanocobalamin (vitamin B-12) 1,000 mcg tablet 1,000 mcg PO DAILY Qty: 90 3RF magnesium oxide 400 mg magnesium capsule 400 mg PO DAILY Qty: 90 3RF Rx Instructions: Administer at least 2 hours apart from other medications metformin [Glucophage] 850 mg tablet 850 mg PO BID Qty: 180 3RF Rx Instructions: to control blood sugars imiquimod 5 % cream in packet 1 applic topical .3 times per week Rx Instructions: use 3 times weekly for 4 weeks then discontinue atorvastatin 40 mg tablet 40 mg PO HS Qty: 90 3RF apixaban 2.5 mg tablet 2.5 mg PO BID Qty: 180 3RF No Action (DME) pen needle, diabetic [Pen Needle] 31 gauge x 5/16 needle See Rx Instructions .ROUTE .MEDSUPPLY Qty: 100 3RF Rx Instructions: As directed to administer insulin QD. Dispense covered brand. (DME) blood-glucose meter Misc See Rx Instructions .ROUTE .MEDSUPPLY Qty: 1 0RF Rx Instructions: As directed to check blood glucose daily. On insulin. Dispense covered brand. (DME) Blood Glucose Test Strip See Rx Instructions .ROUTE .MEDSUPPLY Qty: 100 3RF Rx Instructions: As directed to check blood glucose once daily. On insulin. Dispense covered brand. (DME) lancets Misc See Rx Instructions .ROUTE .MEDSUPPLY Qty: 100 3RF Rx Instructions: As directed to check blood glucose daily. On insulin. Dispense covered brand. Discharge Instructions Instructions: Heart Failure (DC), Gastrointestinal Bleeding (DC), Fall Prevention for Older Adults (DC), Type 2 Diabetes in the Older Adult (DC), Diabetes and Nutrition (DC) Stand Alone Forms: Nursing Discharge Form Referrals: Seu Klein MAP COLORER [Primary Care Provider] - (Please call Tuesday to make a follow up appointment for 1-2 weeks.) Activity:: Activity as Tolerated Equipment/Supplies:: No Equipment Needed Diet:: Low Sodium Discharge Orders Discharge Orders: Discharge Order (Routine); Ordered 02/18/22 Ordered By: Gloria Crouch Discharge Data Discharge Date/Time-TO BE ENTERED AT DEPARTURE: 02/18/22 17:52 DS: Summary Time Spent with Patient providing and/or coordinating discharge services: Greater than 30 minutes Status at Discharge Functional status at discharge: uses cane/walker Overall status at discharge: patient is progressing back to baseline Mental Status: mental status grossly normal Speech and Movement: speech and movement normal Mood: congruent mood Affect: normal affect and elated Quality: AMI Clinical Trial Participant: No Exam Psych Mental Status: mental status grossly normal Speech and Movement: speech and movement normal Mood: congruent mood Affect: normal affect and elated DS: Data Vitals/I&O Vitals and I&O: Vital Signs Temperature 37.6 C H 02/18/22 15:36 Temperature Source Tympanic 02/18/22 15:36 Pulse 89 02/18/22 15:36 Pulse Rhythm Irregular 02/18/22 08:16 Pulse 90 02/13/22 13:00 Respiratory Rate 18 02/18/22 15:36 Respiratory Effort 02/18/22 08:16 Respiratory Depth Normal 02/18/22 08:16 Respiratory Pattern Normal 02/18/22 08:16 Blood Pressure 120/52 L 02/18/22 15:36 Blood Pressure Mean 70 02/13/22 12:46 Pulse Oximetry 99 02/18/22 15:36 Oxygen Delivery Method Room Air 02/18/22 15:36 Oxygen Flow Rate 0 02/18/22 15:36 Pain Level 0 02/18/22 15:36 Comment 02/17/22 20:29 Intake & Output 02/17/22 02/18/22 02/18/22 23:59 11:59 23:59 Intake Total 240 / 480 370 / 620 250 / 620 Output Total 1400 / 2650 1100 / 1350 250 / 1350 Balance -1160 / -2170 -730 / -730 0 / -730 Weight 44.5 kg Intake: Oral 240 / 480 370 / 620 250 / 620 Output: Urine 1400 / 2650 1100 / 1350 250 / 1350 Other: Urine Color Yellow Yellow Yellow Urine Appearance Clear Clear Clear Urine Odor Normal None Comment some urine was from previous tolieting. Voiding Methods Bedside Commode Bedside Commode Toilet PFSH All Active Problems (Updated 02/17/22 @ 15:42 by Theresa Smith NP) Hypoxia (Acute) Sleep difficulties (Acute) DVT prophylaxis (Acute) Acute on chronic heart failure (Acute) GI bleed (Chronic) Vitamin B12 deficiency (Acute) Anemia (Chronic) Physical deconditioning (Acute) Peripheral neuropathy (Acute) CKD (chronic kidney disease) (Chronic) Weight loss (Acute) Critical aortic valve stenosis (Acute) TTE 01/17/20: Critical Aortic Stenosis (0.5 cm2, 43 mmHg) Mitral Valve Stenosis Tinnitus (Acute) Asthma without status asthmaticus (Acute 02/06/14) Mitral valvular stenosis and aortic valvular stenosis (Acute 02/06/14) Type II diabetes mellitus with renal manifestations (Chronic) micral >200 Pernicious anemia (Chronic 02/16/99) H/o Fe infusion; h/o intol oral iron Multiple falls (Chronic 08/24/16) 04/2016; 05/2016; PT Tano Ray Moderate obstructive sleep apnea (Chronic 09/24/16) CPAP since 09/2015 due to moderately severe Lichen sclerosus (Chronic 12/16/14) Jennifer 2008, perineum; responds to clobetasol Hyperlipidemia (Chronic 09/18/92) Gait disturbance (Chronic 03/29/17) Essential hypertension (Chronic 09/18/1960) on HCTZ 25 since 20 y/o! Allergic rhinitis (Chronic 02/06/14) Anemia (Chronic) AF (atrial fibrillation) (Chronic) CHF (congestive heart failure) (Chronic) Medical History Hip fracture, intertrochanteric Muscle pain (11/14/15) buttock and ant thigh, with exertion, ? spinal caludication Pneumonia SCCA (squamous cell carcinoma) of skin Derm: Dr Simpson; Left jehovah's witness SCCA 12/2016, 06/2018; Frontal parietal scalp SCCA 06/2018; left cheek 09/2019 Stroke due to embolism (~01/17/20) Surgical History Cataract, rgt eye (06/24/15) Dilation and curettage 1960's Extraction of cataract (06/10/15) Left eye- Dr. 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
--- NOTE | 2022-02-18 19:00 | PT.INDS ---
Date of service: 02/26/22 PT Notes Visit Reasons: GI Bleed, CHF Physical Therapy Inpatient Discharge Summary Date: 02/18/2022 Date of service: 02/17/2022 through 02/18/2022 This is a clinical summary of care provided for the duration of dates listed above. No charge was made in the completion of this documentation. Referring Doctor: Theresa Smith NP PT Orders: PT CONSULT: Eval/treat Precautions: Fall. Standard. Activity as tolerated. Patient Profile/Admitting Diagnosis:? Leila is an 82-year-old female with diagnoses of a GI bleed, acute on chronic congestive heart failure with an EF of 69%, type 2 diabetes mellitus with renal manifestations, chronic kidney disease, critical aortic valve stenosis, sleep difficulties, atrial fibrillation, and TACHO. PMHX: All Active Problems?(Updated 02/13/22 @ 15:01 by Theresa Smith NP) DVT prophylaxis (Acute) Acute on chronic heart failure (Acute) GI bleed (Chronic) Vitamin B12 deficiency (Acute) Anemia (Chronic) Physical deconditioning (Acute) Peripheral neuropathy (Acute) CKD (chronic kidney disease) (Chronic) Weight loss (Acute) Critical aortic valve stenosis (Acute) TTE 01/17/20:? Critical Aortic Stenosis (0.5 cm2, 43 mmHg) Mitral Valve Stenosis Tinnitus (Acute) Asthma without status asthmaticus (Acute 02/06/14) Mitral valvular stenosis and aortic valvular stenosis (Acute 02/06/14) 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 Allergic rhinitis (Chronic 02/06/14) Anemia (Chronic) AF (atrial fibrillation) (Chronic) CHF (congestive heart failure) (Chronic) Medical History? Hip fracture, intertrochanteric Muscle pain (11/14/15) buttock and ant thigh, with exertion, ? spinal caludication Pneumonia SCCA (squamous cell carcinoma) of skin Derm: Dr Simpson; Left gnosticist SCCA 12/2016, 06/2018; Frontal parietal scalp SCCA 06/2018; left cheek 09/2019 Stroke due to embolism (~01/17/20) Surgical History? Cataract, rgt eye? (06/24/15) Dilation and curettage 1959' Extraction of cataract (06/10/15) Left eye- Dr. Russel erickson post hip surgery (~09/2020) LEFT intra trochanteric fx s/p cephalo medullary nailing Tonsillectomy and adenoidectomy Social History/Home Situation: Lives alone in a private home.? Grandanuel trinh regularly visits and brings in her meals.? Has a cleaning lady who comes every weak for insurance policy issue clerk. ? Equipment Owned/DME: FWW Subjective: NT. See most recent COMPUTER HELP DESK REPRESENTATIVE notes. Objective: General Observation: NT. See most recent COMPUTER HELP DESK REPRESENTATIVE notes. Mental Status: NT. See most recent COMPUTER HELP DESK REPRESENTATIVE notes. Pain: NT. See most recent COMPUTER HELP DESK REPRESENTATIVE notes. Vital Signs: NT. See most recent COMPUTER HELP DESK REPRESENTATIVE notes. ROM: Right Upper Extremity: ? Shoulder Flexion WFL. Shoulder abduction WFL. Elbow flexion WFL. Wrist flexion WFL. Functional opening and closing of hand WFL. Left Upper Extremity:? Shoulder Flexion WFL. Shoulder abduction WFL. Elbow flexion WFL. Wrist flexion WFL. Functional opening and closing of hand WFL. Right Lower Extremity: Hip flexion WFL. Hip abduction WFL. Knee flexion WFL. Ankle dorsiflexion WFL. Ankle plantarflexion WFL. Left Lower Extremity: Hip flexion WFL. Hip abduction WFL. Knee flexion WFL. Ankle dorsiflexion WFL. Ankle plantarflexion WFL. Strength: Right Upper Extremity: Shoulder flexors 3+/5. Shoulder abductors 3+/5. Elbow flexors 3+/5. Elbow extensors 3+/5. Remote Sensing Specialist strong. Left Upper Extremity: Shoulder flexors 3+/5. Shoulder abductors 3+/5. Elbow flexors 3+/5. Elbow extensors 3+/5. Remote Sensing Specialist strong. Right Lower Extremity: Hip flexors 4-/5. Hip abductors 4-/5. Knee flexors 4-/5. Knee extensors 4-/5. Ankle dorsiflexors 4-/5. Ankle plantarflexors 4-/5. Left Lower Extremity: Hip flexors 4-/5. Hip abductors 4-/5. Knee flexors 4-/5. Knee extensors 4-/5. Ankle dorsiflexors 4-/5. Ankle plantarflexors 4-/5. Bed Mobility/Transfers: Sit to supine standby assist Sit to stand standby assist Stand to sit standby assist Bed to bedside commode standby assist Bedside commode to bed standby assist Bed to reclining chair standby assist Reclining chair to bed standby assist Gait: Instructed patient with level surface ambulation of 200 feet requiring contact-guard assist. Marlyn decreased.? Required 1 seated rest due to increased pain in both legs and fatigue. Kyphotic. Balance: Static Sitting: Good Dynamic Sitting: Good Static Standing: Fair Dynamic Standing: Fair 4-stage Balance test:? Unable to maintain all 4 positions for 10 seconds signifying at high risk for falls. ASSESSMENT: Back to mobility naseline using FWW. Patient will benefit from home health PT services in order to progress mobility level using least restrictive assistive ambulatory device, assess home safety, identify additional equipment needs, and establish a functional maintenance program that will increase ability of patient to remain at home. Goals: Goals X1 week 1. Supine-Sit independent NOT MET 2. Sit-Supine independent NOT MET 3. Sit-Stand independent NOT MET 4. Stand-Sit independent with FWW NOT MET 5. Bed-Chair independent with FWW NOT MET 6. Chair-Bed independent with FWW NOT MET 7. Independent gait on level surface with use of FWW for at least 300 feet without report of pain nor dyspnea NOT MET 8. Independent stair negotiation while holding onto B rails for at least 5 steps without report of pain nor dyspnea NOT MET 9. Independent with home exercise program NOT MET 10. Good static and dynamic standing balance/tolerance NOT MET DISCHARGE RECOMMENDATIONS: Patient will benefit from correction facility placement for continued skilled physical therapy services in order to progress mobility level, strength, and balance in preparation for a safe discharge to home. TREATMENT CODE/TIME: SC Thank you for the opportunity to participate in the care of this patient. Marcella Cifuentes PT, DPT, CLT [facility] [place], [place]
== END 2022-02-18 17:52 | disposition home health service (06) | DRG 377 ==
LOC: ER 15:14 → MS 15:50
PROVIDERS: Internal Medicine; Nurse Practitioner Acute Care; Nurse Practitioner Family; Admitting Provider Family Medicine; Emergency Provider Physician Assistant; PCP Nurse Practitioner Family; Visit Provider Family Medicine
DX: K62.5 Hemorrhage of anus and rectum (principal); I50.43 Acute on chronic combined systolic (congestive) and diastolic (congestive) heart failure; I13.0 Hypertensive heart and chronic kidney disease with heart failure and stage 1 through stage 4 chronic kidney disease, or unspecified chronic kidney disease; Z68.1 Body mass index [BMI] 19.9 or less, adult; E11.22 Type 2 diabetes mellitus with diabetic chronic kidney disease; N18.31 Chronic kidney disease, stage 3a; D50.9 Iron deficiency anemia, unspecified; G47.33 Obstructive sleep apnea (adult) (pediatric); I48.91 Unspecified atrial fibrillation; D53.8 Other specified nutritional anemias; R53.81 Other malaise; E11.42 Type 2 diabetes mellitus with diabetic polyneuropathy; R63.4 Abnormal weight loss; J45.909 Unspecified asthma, uncomplicated; I08.0 Rheumatic disorders of both mitral and aortic valves; D51.0 Vitamin B12 deficiency anemia due to intrinsic factor deficiency; L90.0 Lichen sclerosus et atrophicus; E78.5 Hyperlipidemia, unspecified; R26.89 Other abnormalities of gait and mobility; Z86.73 Personal history of transient ischemic attack (TIA), and cerebral infarction without residual deficits; Z87.891 Personal history of nicotine dependence; Z79.84 Long term (current) use of oral hypoglycemic drugs; Z79.01 Long term (current) use of anticoagulants
CPT/HCPCS: 36415; 36416; 80048; 80053; 82962; 86850; 86900; 86901; 87637; 93005; 93306; 94618; 96361; 96374; 96375; 97110; 97162; 97530; 99285; 71045; 74177; 81003; 81015; 83880; 84484; 85014; 85018; 85025; 93010; 99223; 99232; 99233; 99239; J1941

== ENCOUNTER 2022-02-22 11:43 | Inpatient (IN) | payer MEDICARE, OTHER, SELFPAY ==
[2022-02-22] VITALS (27 sets, daily range): BP systolic 115–145; BP diastolic 45–101; PULSE 64–110; RESP 13–32; TEMP 36.5–36.7; O2SAT 87–99
--- NOTE | 2022-02-22 11:30 | RT.EKG_ITS ---
APPROVED REPORT Exam: Resting ECG Reason for Exam: shotness of breath Patient Location: E HR:79 bpm ECG Measurements Heart Rate 79 AXIS WI [id number] P [id number] QRSd 84 QRS 19 QT 362 T 42 QTc 415 Conclusion Atrial fibrillation...V-rate 64-107, irreg A-activity Low voltage, extremity leads...all extremity leads <0.5mV Anteroseptal infarct, old...Q >40mS, V1-V2
--- NOTE | 2022-02-22 11:55 | W.ED.GENAD ---
Discharge Plan Disposition Patient Disposition: [facility] INPATIENT Condition: Stable Discharge Details Chief Complaint: SOB Clinical Impression: CHF (congestive heart failure), AF (atrial fibrillation), Hypoxia Primary Care Provider: Sue Klein ED Provider: Colin Malagon [place] Meds and New Rx's Prescriptions: No Action mirtazapine 7.5 mg tablet 7.5 mg PO QHS Qty: 90 0RF (DME) pen needle, diabetic [Pen Needle] 31 gauge x 5/16 needle See Rx Instructions .ROUTE .MEDSUPPLY Qty: 100 3RF Rx Instructions: As directed to administer insulin QD. Dispense covered brand. diltiazem HCl 120 mg capsule,extended release 24hr 120 mg PO HS Qty: 90 3RF Rx Instructions: to control heart rate acetaminophen 325 mg capsule 650 mg PO ONCE PRN (Reason: pain) (DME) blood-glucose meter Misc See Rx Instructions .ROUTE .MEDSUPPLY Qty: 1 0RF Rx Instructions: As directed to check blood glucose daily. On insulin. Dispense covered brand. (DME) Blood Glucose Test Strip See Rx Instructions .ROUTE .MEDSUPPLY Qty: 100 3RF Rx Instructions: As directed to check blood glucose once daily. On insulin. Dispense covered brand. (DME) lancets Misc See Rx Instructions .ROUTE .MEDSUPPLY Qty: 100 3RF Rx Instructions: As directed to check blood glucose daily. On insulin. Dispense covered brand. cyanocobalamin (vitamin B-12) 1,000 mcg tablet 1,000 mcg PO DAILY Qty: 90 3RF magnesium oxide 400 mg magnesium capsule 400 mg PO DAILY Qty: 90 3RF Rx Instructions: Administer at least 2 hours apart from other medications metformin [Glucophage] 850 mg tablet 850 mg PO BID Qty: 180 3RF Rx Instructions: to control blood sugars imiquimod 5 % cream in packet 1 applic topical .3 times per week Rx Instructions: use 3 times weekly for 4 weeks then discontinue atorvastatin 40 mg tablet 40 mg PO HS Qty: 90 3RF apixaban 2.5 mg tablet 2.5 mg PO BID Qty: 180 3RF pantoprazole 40 mg tablet,delayed release (DR/EC) 40 mg PO BID Qty: 60 0RF pantoprazole 40 mg tablet,delayed release (DR/EC) 40 mg PO BID Qty: 14 0RF Medical Decision Making 82 yo female with hx of critcal aortic stenosis who has declined intervention for this in the past, ckd, peripheral neuropathy, afib on eliquis, who was admitted recently for GI bleed and also pulmonary edema and discharged home after improvement as an inpatient, comes in with several days of worsening shortness of breath with exertion and today has been short of breath at rest so ems brought her here. She was noted to have room air saturations in the 80's per ems. She denies chest pain, fevers, chills, n/v. She is able to speak in about 3-4 word sentences. She does appear frail on exam, has pitting edema of her ankles, no calf tenderness. She has crackles at the bases bilaterally, severe systolic murmur, and on bedside u/s has diffuse b lines in both lungs and no pericardial effusion, her EF on bedside u/s is approximately 40-50%. Suspect pulmonary edema in the setting of her critical aortic stenosis. Will give a dose of lasix, obtain cxr, troponin/ecg, cbc and cmp. She has no evidence of dvt on exam and her clinical picture is more of heart failure so doubt PE. She and family do confirm she is dnr/dni pt's xray confirms pulmonary edema and pleural effusions. negative troponin, stable h/h. She has urinated 400cc urine and ua does show evidence of infection, has cefazolin allergy so levofloxacin ordered. Discussed with hospitalist who agrees for admission and possible palliative care consult Differential Diagnosis Differential Diagnosis: chf, pulmonary edema, aortic stenosis, anemia Medical Records Medical records reviewed: Yes I reviewed the patient's medical records. Imaging Data Radiologic Study: Attestation: I personally reviewed and interpreted this imaging study as follows: Imaging: X-Ray Radiologist's impression: chf, pleural effusions Lab Data Lab results reviewed: Yes I reviewed the patient's lab results. ECG Data Attestation: I personally reviewed and interpreted this ECG (s) as follows: Prior ECG tracings: available for review Interpretation: afib, rate of 79, no acute st t wave ischemic findings HPI General Mode of arrival: EMS. Date/Time Provider Initiated Documentation: 02/22/22 11:54. Limitations to Documentation: no limitations. Information obtained by: patient, family and EMS. History of Present Illness 82 year old F presents to the emergency department with the chief complaint of shortness of breath, Patient reports no radiation. Patient started experiencing this day(s) (3) and it has been constant. Rest improves symptom(s), Movement worsens symptoms . Patient notes denies chest pain and fever/chills. Patient did receive the following treatments prior to arrival, none Related Data Home Medications Medication Instructions Recorded Confirmed mirtazapine 7.5 mg tablet 7.5 mg PO QHS #90 tabs 01/29/21 02/22/22 pen needle, diabetic 31 gauge x #100 ea 03/03/21 02/22/2202/01 (Pen Needle) metformin 850 mg tablet 850 mg PO BID #180 tabs 03/10/21 02/22/22 (Glucophage) acetaminophen 325 mg capsule 650 mg PO ONCE PRN pain 05/28/21 02/22/22 blood sugar diagnostic (Blood #100 ea 05/28/21 02/22/22 Glucose Test strips) blood-glucose meter #1 ea 05/28/21 02/22/22 lancets #100 ea 05/28/21 02/22/22 imiquimod 5 % topical cream packet 1 applic topical .3 times per week 08/03/21 02/22/22 atorvastatin 40 mg tablet 40 mg PO HS #90 tabs 08/05/21 02/22/22 apixaban 2.5 mg tablet 2.5 mg PO BID #180 tabs 09/10/21 02/22/22 diltiazem HCl 120 mg 120 mg PO HS #90 tab-caps 09/28/21 02/22/22 capsule,extended release 24 hr cyanocobalamin (vitamin B-12) 1,000 mcg PO DAILY #90 tab-caps 01/15/22 02/22/22 1,000 mcg tablet magnesium oxide 400 mg PO DAILY #90 tab-caps 01/15/22 02/22/22 pantoprazole 40 mg tablet,delayed 40 mg PO BID #14 tabs 02/18/22 02/22/22 release pantoprazole 40 mg tablet,delayed 40 mg PO BID #60 tabs 02/18/22 02/22/22 release Previous Rx's Medication Instructions Recorded mirtazapine 7.5 mg tablet 7.5 mg PO QHS #90 tabs 01/29/21 pen needle, diabetic 31 gauge x #100 ea 03/03/2102/01 (Pen Needle) metformin 850 mg tablet 850 mg PO BID #180 tabs 03/10/21 (Glucophage) blood sugar diagnostic (Blood #100 ea 05/28/21 Glucose Test strips) blood-glucose meter #1 ea 05/28/21 lancets #100 ea 05/28/21 atorvastatin 40 mg tablet 40 mg PO HS #90 tabs 08/05/21 apixaban 2.5 mg tablet 2.5 mg PO BID #180 tabs 09/10/21 diltiazem HCl 120 mg 120 mg PO HS #90 tab-caps 09/28/21 capsule,extended release 24 hr cyanocobalamin (vitamin B-12) 1,000 mcg PO DAILY #90 tab-caps 01/15/22 1,000 mcg tablet magnesium oxide 400 mg PO DAILY #90 tab-caps 01/15/22 pantoprazole 40 mg tablet,delayed 40 mg PO BID #14 tabs 02/18/22 release pantoprazole 40 mg tablet,delayed 40 mg PO BID #60 tabs 02/18/22 release Allergies Allergy/AdvReac Type Severity Reaction Status Date / Time cefazolin Allergy Intermediate itching Verified 02/22/22 12:01 and morbilliform rash torso, arms, thighs epinephrine [place] [facility] [place] 02/22/22 12:01 note dated 12/02/20 [facility] tetanus and diphtheria Allergy unknown Verified 02/22/22 12:01 toxoids sitagliptin AdvReac Severe diarrhea Verified 02/22/22 12:01 metoprolol AdvReac Intermediate FATIGUE Verified 02/22/22 12:01 General CARI: 3 Review of Systems All systems reviewed & are unremarkable except as noted in HPI and below Constitutional Constitutional: Denies chills and Denies fever(s) Cardiovascular Cardiovascular: Denies chest pain Respiratory Respiratory: Denies cough Gastrointestinal Gastrointestinal: Denies abdominal pain, Denies nausea and Denies vomiting Genitourinary Genitourinary: Denies dysuria Integumentary/Breasts Skin/Breast: Denies rash PFSH All Active Problems (Updated 02/22/22 @ 13:45 by Colin Malagon MD) Hypoxia (Acute) Sleep difficulties (Acute) Acute on chronic heart failure (Acute) GI bleed (Chronic) Vitamin B12 deficiency (Acute) Anemia (Chronic) Physical deconditioning (Acute) Peripheral neuropathy (Acute) CKD (chronic kidney disease) (Chronic) Weight loss (Acute) Critical aortic valve stenosis (Acute) TTE 01/17/20: Critical Aortic Stenosis (0.5 cm2, 43 mmHg) Mitral Valve Stenosis Tinnitus (Acute) Asthma without status asthmaticus (Acute 02/06/14) Mitral valvular stenosis and aortic valvular stenosis (Acute 02/06/14) 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 Allergic rhinitis (Chronic 02/06/14) Anemia (Chronic) AF (atrial fibrillation) (Chronic) CHF (congestive heart failure) (Chronic) Medical History Hip fracture, intertrochanteric Muscle pain (11/14/15) buttock and ant thigh, with exertion, ? spinal caludication Pneumonia SCCA (squamous cell carcinoma) of skin Derm: Dr Simpson; Left rastafari SCCA 12/2016, 06/2018; Frontal parietal scalp SCCA 06/2018; left cheek 09/2019 Stroke due to embolism (~01/17/20) Surgical History Cataract, rgt eye (06/24/15) Dilation and curettage 1960's Extraction of cataract (06/10/15) Left eye- Dr. 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 Current gender identity: female Other: 2 children, 1 What is your relationship status?: Panel score (0-1 are the most socially isolated patients): 0 What type of physical activity do you participate in: none Seatbelt use: always Drive intox or ride w/intox school bus driver/mechanic: No Water heater temp set <120 deg: Yes Working smoke detector in home: Yes Fire extinguisher in home: No Carbon monox detector in home: Yes Do you feel safe at home: Yes Do you feel safe in your relationship?: Yes Victim of emotional abuse: No Victim of sexual abuse: No Would you like helpful sources: No Exam Const General: no acute distress Orientation: alert HENMT Head: normal to inspection Ears: external ears normal General nose exam: external nose normal Mouth: moist mucous membranes Eyes General: appearance normal, both eyes and all related structures Neck Neck: normal visual inspection Resp Effort & Inspection: other (crackles at the bases bilaterally) Cardio Rate: regular rate Skin General skin exam: no rashes or lesions noted Neuro General: patient alert and patient oriented x3 Extrem General: capillary refill normal Psych Mental Status: mental status grossly normal
--- NOTE | 2022-02-22 12:00 | DI.RAD_ITS ---
Exam(s) XR PORTABLE CHEST AP EXAM: XR PORTABLE CHEST AP CLINICAL HISTORY: shortness of breath TECHNIQUE: 2D digital imaging was performed. COMPARISON: CR,XR XR CHEST 1V IN DI DEPT from 02/13/2022 FINDINGS: LUNGS: There are moderate bilateral pleural effusions, increasing when compared with the prior exam. Increased interstitial markings and vascular prominence, consistent with CHF. HEART: The cardiac silhouette is mainly obscured by the effusions.. Mitral annular calcifications. AORTA: Normal. BONES: Unremarkable for age. Soft tissues: Unremarkable. IMPRESSION: CHF with moderate-sized bilateral pleural effusions. DATA REPOSITORY: RADIATION DOSE DELIVERED:
[2022-02-22 12:14] LABS: Source Nasal/Nares
[2022-02-22 12:15] LABS: BE (Venous) 1 mmol/L (-2-3); HCO3 (Venous) 27 mmol/L (23-28); O2 Sat (Venous) 56 %; TCO2 (Venous) 26 mmol/L (24-29); pCO2 (Venous) 52 mmHg (41-51); pH (Venous) 7.32 (7.31-7.41); pO2 (Venous) 34 mmHg
[2022-02-22 12:17] LABS: Abs Immature Grans 0.08 10^3/uL (0.0-0.06); Absolute Monocyte Count 1.03 10^3/uL (0.1-0.8); Basophils % 0.8; Eosinophils % 0.7; HCT 25.4 % (36.0-46.0); Immature Grans % 0.7; Lymphocytes % 12.7; MCHC 31.5 % (32.0-36.0); MCV 92 fL (80-95); MPV 11.3 fL (8.0-11.0); Monocytes % 8.5; Neutrophils % 76.6; Platelet Count 267 10^3/uL (130-400); RBC 2.76 10^6/uL (3.93-5.22); RDW 15.7 % (11.7-14.6); RDW-SD 52.2 fL; WBC 12.16 10^3/uL (4.4-10.8)
[2022-02-22] MEDS: Furosemide 20 MG/2 ML VIAL IVP (12:17)
[2022-02-22 12:18] LABS: Absolute Eosinophil Count 0.09 10^3/uL (0.0-0.7); Absolute Lymphocyte Count 1.54 10^3/uL (1.2-3.4); Absolute Neutrophil Count 9.31 10^3/uL (1.2-6.7)
[2022-02-22 12:37] LABS: INR 1.1 (0.9-1.1); PTT Activated 27.9 sec (21.0-27.5)
[2022-02-22 13:13] LABS: ALT 18 U/L (14-59); AST 19 U/L (15-37); Albumin 2.9 g/dL (3.4-5.0); Alkaline Phosphatase 98 U/L (46-116); Anion Gap 7.7 mmol/L (3-11); BUN 30 mg/dL (7-18); Bilirubin, Total 0.5 mg/dL (0.2-1.0); CO2 26.3 mmol/L (21.0-32.0); Calcium 8.7 mg/dL (8.5-10.1); Chloride 101 mmol/L (98-107); Estimated GFR 52.82 (mL/min/1.73m2); Glucose 283 mg/dL (74-106); Potassium 5.2 mmol/L (3.5-5.1); Sodium 135 mmol/L (136-145); TSH (W/Ref FT4) 7.16 uIU/mL (0.36-3.74); Total Protein 6.8 g/dL (6.4-8.2); Troponin I < 50 ng/L (<or=60)
[2022-02-22 13:21] LABS: COVID-19 PCR Negative (Negative)
--- NOTE | 2022-02-22 13:24 | HPE_ITS ---
Date of service: 02/22/22 Time of Service: 12:24 Assessment and Plan Assessment and plan (1) Acute on chronic heart failure: Status: Acute Assessment and plan: echo 02/15/22: Conclusion Mild to moderate concentric left ventricular hypertrophy.? Estimated ejection fraction 55 to 60%.? Wall motion is normal The right ventricle appears normal in size and systolic function The left atrium is moderately to severely dilated.? The right atrium is moderately dilated Aortic valve is calcified.? There is critical aortic stenosis.? Peak gradient is 103, mean 64 mmHg.? Calculated aortic valve area 0.41 cm??.? There is mild aortic regurgitation Thickened mitral leaflets.? Mitral annular calcification.? Moderate mitral regurgitation Normal tricuspid valve with moderate regurgitation.? Estimated right ventricular systolic pressure is 47 mmHg received IV lasix in the ED and put out 400 cc will continue daily lasix while closely monitoring response will use cautiously in setting of severe monitor I&O closely, daily weights (2) Critical aortic valve stenosis: Status: Acute Assessment and plan: followed by [facility] [place]. 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 Assessment and plan: last A1C in December of this year is 7.3 carb controlled diet check blood sugars ac/hs with sliding scale as needed, hold metformin while hospitalized Qualifiers: Chronic kidney disease stage: stage 3 (moderate) Chronic kidney disease stage 3 subtype: stage 3a (GFR 45-59) Diabetes mellitus complication detail: with chronic kidney disease Diabetes mellitus intermediate card tender insulin use: unspecified intermediate card tender insulin use status Qualified Code(s): E11.22 - Type 2 diabetes mellitus with diabetic chronic kidney disease; N18.31 - Chronic kidney disease, stage 3a (4) CKD (chronic kidney disease): Status: Chronic Assessment and plan: stable. Qualifiers: Chronic kidney disease stage: unspecified stage Qualified Code(s): N18.9 - Chronic kidney disease, unspecified (5) AF (atrial fibrillation): Status: Chronic Assessment and plan: rate controlled. Continue diltiazem on apixaban (6) Moderate obstructive sleep apnea: Status: Chronic Assessment and plan: home CPAP (7) DVT prophylaxis: Status: Deleted Assessment and plan: teds and scd anticoagulated on apixaban (8) Discharge planning issues: Status: Acute Assessment and plan: palliative care consult placed and pending case management following discussed with Dr Joy History of Present Illness History of Present Illness Chief Complaint: shortness of breath Narrative: This is a 82 year old female with history of severe aortic stenosis, refuses repair, who was recently hospitalized for shortness of breath and rectal bleeding. She never required blood product, apixaban placed on hold during admission but resumed at discharge with addition of pantoprazole (she decline endoscopy), she was weaned off oxygen and reambulated. despite concern for a safe home discharge, patient was ultimately discharged with services after adamantly refusing skilled rehab facility. She states she did well for one or two days but quickly became increasingly more short of breath. EMS found her hypoxic in the 80's on room air. work in the ED showed heart failure on xray, and bedside us with EF approx 40-50%, She was given lasix with approx 400 cc out initially. This improved her symptoms. She was also started on levaquin for suspected UTI (cephalosporin allergy). hospitalist services was contacted and she was referred to observation for monitoring and discharge planning. Review of Systems All systems reviewed & are unremarkable except as noted in HPI and below Constitutional Constitutional: Denies fever(s) ENT Ears, Nose, Mouth, and Throat: Denies dizziness Cardiovascular Cardiovascular: Denies chest pain, Reports leg edema, Reports dyspnea and Reports dyspnea on exertion Respiratory Respiratory: Reports dyspnea and Reports dyspnea on exertion Gastrointestinal Gastrointestinal: Denies abdominal pain and Denies nausea Genitourinary Genitourinary: Denies difficulty voiding Musculoskeletal Musculoskeletal: Denies arthralgias Neurologic Neurologic: Denies dizziness PFSH All Active Problems (Updated 02/22/22 @ 16:31 by Theresa Smith NP) Discharge planning issues (Acute) Hypoxia (Acute) Sleep difficulties (Acute) Acute on chronic heart failure (Acute) GI bleed (Chronic) Vitamin B12 deficiency (Acute) Anemia (Chronic) Physical deconditioning (Acute) Peripheral neuropathy (Acute) CKD (chronic kidney disease) (Chronic) Weight loss (Acute) Critical aortic valve stenosis (Acute) TTE 01/17/20: Critical Aortic Stenosis (0.5 cm2, 43 mmHg) Mitral Valve Stenosis Tinnitus (Acute) Asthma without status asthmaticus (Acute 02/06/14) Mitral valvular stenosis and aortic valvular stenosis (Acute 02/06/14) 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 Allergic rhinitis (Chronic 02/06/14) Anemia (Chronic) AF (atrial fibrillation) (Chronic) CHF (congestive heart failure) (Chronic) Medical History Hip fracture, intertrochanteric Muscle pain (11/14/15) buttock and ant thigh, with exertion, ? spinal caludication Pneumonia SCCA (squamous cell carcinoma) of skin Derm: Dr Simpson; Left sikh SCCA 12/2016, 06/2018; Frontal parietal scalp SCCA 06/2018; left cheek 09/2019 Stroke due to embolism (~01/17/20) Surgical History Cataract, rgt eye (06/24/15) Dilation and curettage Extraction of cataract (06/10/15) Left eye- Dr. 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 Current gender identity: female Other: 2 children, 1 What is your relationship status?: Panel score (0-1 are the most socially isolated patients): 0 What type of physical activity do you participate in: none Seatbelt use: always Drive intox or ride w/intox regional driver: No Water heater temp set <120 deg: Yes Working smoke detector in home: Yes Fire extinguisher in home: No Carbon monox detector in home: Yes Do you feel safe at home: Yes Do you feel safe in your relationship?: Yes Victim of emotional abuse: No Victim of sexual abuse: No Would you like helpful sources: No Meds Allergies and Home Medications Allergies Allergy/AdvReac Type Severity Reaction Status Date / Time cefazolin Allergy Intermediate itching Verified 02/22/22 12:01 and morbilliform rash torso, arms, thighs epinephrine Allergy Unknown per [facility] [place] Verified 02/22/22 12:01 note dated 12/02/20 [facility] tetanus and diphtheria Allergy unknown Verified 02/22/22 12:01 toxoids sitagliptin AdvReac Severe diarrhea Verified 02/22/22 12:01 metoprolol AdvReac Intermediate FATIGUE Verified 02/22/22 12:01 Home Medications Medication Instructions Recorded Confirmed Type mirtazapine 7.5 mg tablet 7.5 mg PO QHS #90 tabs 01/29/21 02/22/22 Rx pen needle, diabetic 31 gauge x #100 ea 03/03/21 02/22/22 Rx 5/16 (Pen Needle) metformin 850 mg tablet 850 mg PO BID #180 tabs 03/10/21 02/22/22 Rx (Glucophage) acetaminophen 325 mg capsule 650 mg PO ONCE PRN pain 05/28/21 02/22/22 History blood sugar diagnostic (Blood #100 ea 05/28/21 02/22/22 Rx Glucose Test strips) blood-glucose meter #1 ea 05/28/21 02/22/22 Rx lancets #100 ea 05/28/21 02/22/22 Rx imiquimod 5 % topical cream packet 1 applic topical .3 times per week 08/03/21 02/22/22 History atorvastatin 40 mg tablet 40 mg PO HS #90 tabs 08/05/21 02/22/22 Rx apixaban 2.5 mg tablet 2.5 mg PO BID #180 tabs 09/10/21 02/22/22 Rx diltiazem HCl 120 mg 120 mg PO HS #90 tab-caps 09/28/21 02/22/22 Rx capsule,extended release 24 hr cyanocobalamin (vitamin B-12) 1,000 mcg PO DAILY #90 tab-caps 01/15/22 02/22/22 Rx 1,000 mcg tablet magnesium oxide 400 mg PO DAILY #90 tab-caps 01/15/22 02/22/22 Rx pantoprazole 40 mg tablet,delayed 40 mg PO BID #14 tabs 02/18/22 02/22/22 Rx release pantoprazole 40 mg tablet,delayed 40 mg PO BID #60 tabs 02/18/22 02/22/22 Rx release Exam Const General: no acute distress Orientation: alert HENMT Head: normal to inspection Ears: external ears normal General nose exam: external nose normal Mouth: moist mucous membranes Eyes General: appearance normal, both eyes and all related structures Neck Neck: normal visual inspection Resp Effort & Inspection: other (crackles at the bases bilaterally) Cardio Rate: regular rate Heart Sounds: murmur systolic harsh and / Skin General skin exam: no rashes or lesions noted Neuro General: patient alert, patient awake, patient oriented x3 and no focal motor deficits Extrem General: capillary refill normal and pedal edema (trace) bilaterally Psych Mental Status: mental status grossly normal Results Labs Result diagrams: 02/23/22 05:58 02/23/22 05:58 Labs: Laboratory Results - last 24 hr 02/22/22 02/22/22 02/22/22 12:03 12:03 12:03 WBC RBC Hgb Hct MCV MCH MCHC RDW Plt Count MPV Immature Gran % Neutrophils % Lymphocytes % Monocytes % Eosinophils % Basophils % Nucleated RBC % Absolute Neutrophils Absolute Lymphocytes Absolute Monocytes Absolute Eosinophils Absolute Basophils PT INR APTT VBG pH 7.32 VBG pCO2 52 H VBG pO2 34 VBG HCO3 27 VBG Total CO2 26 VBG O2 Saturation 56 VBG Base Excess 1 Sodium 135 L Potassium 5.2 H Chloride 101 Carbon Dioxide 26.3 Anion Gap 7.7 BUN 30 H Creatinine 1.0 Estimated GFR/1.73 m2 52.82 Glucose 283 H Calcium 8.7 Magnesium 2.0 Total Bilirubin 0.5 AST 19 ALT 18 Alkaline Phosphatase 98 Troponin I < 50 NT-Pro-B Natriuret Pep Total Protein 6.8 Albumin 2.9 L TSH 7.16 H COVID-19 Source Nasal/Nares Patient ABO/Rh Antibody Screen 02/22/22 02/22/22 02/22/22 12:03 12:03 12:03 WBC 12.16 H RBC 2.76 L Hgb 8.0 L Hct 25.4 L MCV 92 MCH 29.0 MCHC 31.5 L RDW 15.7 H Plt Count 267 MPV 11.3 H Immature Gran % 0.7 Neutrophils % 76.6 Lymphocytes % 12.7 Monocytes % 8.5 Eosinophils % 0.7 Basophils % 0.8 Nucleated RBC % 0.0 Absolute Neutrophils 9.31 H Absolute Lymphocytes 1.54 Absolute Monocytes 1.03 H Absolute Eosinophils 0.09 Absolute Basophils 0.10 PT 11.0 INR 1.1 APTT 27.9 H VBG pH VBG pCO2 VBG pO2 VBG HCO3 VBG Total CO2 VBG O2 Saturation VBG Base Excess Sodium Potassium Chloride Carbon Dioxide Anion Gap BUN Creatinine Estimated GFR/1.73 m2 Glucose Calcium Magnesium Total Bilirubin AST ALT Alkaline Phosphatase Troponin I NT-Pro-B Natriuret Pep Cancelled Total Protein Albumin TSH Cancelled COVID-19 Source Patient ABO/Rh Antibody Screen 02/22/22 12:03 WBC RBC Hgb Hct MCV MCH MCHC RDW Plt Count MPV Immature Gran % Neutrophils % Lymphocytes % Monocytes % Eosinophils % Basophils % Nucleated RBC % Absolute Neutrophils Absolute Lymphocytes Absolute Monocytes Absolute Eosinophils Absolute Basophils PT INR APTT VBG pH VBG pCO2 VBG pO2 VBG HCO3 VBG Total CO2 VBG O2 Saturation VBG Base Excess Sodium Potassium Chloride Carbon Dioxide Anion Gap BUN Creatinine Estimated GFR/1.73 m2 Glucose Calcium Magnesium Total Bilirubin AST ALT Alkaline Phosphatase Troponin I NT-Pro-B Natriuret Pep Total Protein Albumin TSH COVID-19 Source Patient ABO/Rh B Negative Antibody Screen NEGATIVE Last Vital Signs Temp 36.7 C 02/22/22 11:45 Pulse 64 02/22/22 12:31 Resp 23 02/22/22 12:31 BP 130/46 L 02/22/22 12:31 Pulse Ox 87 L 02/22/22 12:16
[2022-02-22 13:36] LABS: Bilirubin Negative (Negative); Blood Moderate (Negative); Clarity Sl Cloudy (Clear); Glucose Negative (Negative); Ketones Negative (Negative); Leukocyte Esterase Moderate (Negative); Nitrite Negative (Negative); Urobilinogen 0.2 EU/dL (Up TO 0.2); pH 5.5 (5-8)
[2022-02-22 13:40] LABS: Bacteria Moderate HPF (Negative); C & S Indicated? Yes; Casts 0-2 Hyaline LPF (Negative); Crystals Negative HPF (Negative); Epithelial Cells Few HPF (Negative); Mucus Negative (Negative); WBC >50 HPF (0-5)
[2022-02-22 13:57] LABS: NT-proBNP 5776 pg/mL (<300)
[2022-02-22] MEDS: levoFLOXacin 750 MG/150 ML BAG 100 MG IVPB (14:04)
[2022-02-22 16:21] LABS: Troponin I < 50 ng/L (<or=60)
[2022-02-22] MEDS: Insulin Aspart 300 UNITS/3 ML PEN SC ×2 (17:45→21:14)
[2022-02-22] MEDS: Pantoprazole 40 MG TABCR PO (19:29)
[2022-02-22] MEDS: Apixaban 2.5 MG TAB PO (19:30)
[2022-02-22] MEDS: Mirtazapine 15 MG TAB 7.5 MG PO (21:12)
[2022-02-22] MEDS: Atorvastatin 40 MG TAB PO (21:13)
[2022-02-22] MEDS: dilTIAZem CD 120 MG CAPCR PO (21:13)
[2022-02-23 06:19] LABS: Abs Immature Grans 0.09 10^3/uL (0.0-0.06); Absolute Eosinophil Count 0.24 10^3/uL (0.0-0.7); Absolute Lymphocyte Count 1.92 10^3/uL (1.2-3.4); Absolute Neutrophil Count 8.29 10^3/uL (1.2-6.7); Basophils % 0.8; HCT 24.6 % (36.0-46.0); HGB 7.8 g/dL (11.2-15.7); Immature Grans % 0.8; Lymphocytes % 16.1; MCH 28.9 pg (27.0-33.0); MCHC 31.7 % (32.0-36.0); MCV 91 fL (80-95); Monocytes % 10.9; Neutrophils % 69.4; Nucleated RBC 0.2 % (0.0-0.3); Platelet Count 262 10^3/uL (130-400); RDW 15.6 % (11.7-14.6); WBC 11.94 10^3/uL (4.4-10.8)
[2022-02-23 06:35] LABS: Anion Gap 6.2 mmol/L (3-11); BUN 30 mg/dL (7-18); CO2 30.8 mmol/L (21.0-32.0); Calcium 8.9 mg/dL (8.5-10.1); Chloride 99 mmol/L (98-107); Estimated GFR 52.82 (mL/min/1.73m2); Glucose 188 mg/dL (74-106); Potassium 4.2 mmol/L (3.5-5.1); Sodium 136 mmol/L (136-145)
[2022-02-23 07:45] VITALS: BP 110/51; PULSE 89; RESP 17; TEMP 36.6; O2SAT 99
[2022-02-23] MEDS: Furosemide 20 MG TAB PO (08:24)
[2022-02-23] MEDS: Pantoprazole 40 MG TABCR PO ×2 (08:24→19:34)
[2022-02-23] MEDS: Apixaban 2.5 MG TAB PO ×2 (08:24→19:34)
[2022-02-23] MEDS: Insulin Aspart 300 UNITS/3 ML PEN SC ×4 (08:25→21:11)
--- NOTE | 2022-02-23 08:57 | INITIAL_ITS ---
- If Service Date Differs Date of service: 02/23/22 Time of Service: 08:57 Care Management Initial Assess REASON FOR HOSPITALIZATION:: Acute on chronic heart failure PAST MEDICAL HISTORY/PAST SURGICAL HISTORY:: All Active Problems (Updated 02/22/22 @ 16:31 by Theresa Smith NP). Discharge planning issues (Acute). Hypoxia (Acute). Sleep difficulties (Acute). Acute on chronic heart failure (Acute). GI bleed (Chronic). Vitamin B12 deficiency (Acute). Anemia (Chronic). Physical deconditioning (Acute). Peripheral neuropathy (Acute). CKD (chronic kidney disease) (Chronic). Weight loss (Acute). Critical aortic valve stenosis (Acute). TTE 01/17/20: Critical Aortic Stenosis (0.5 cm2, 43 mmHg). Mitral Valve Stenosis. Tinnitus (Acute). Asthma without status asthmaticus (Acute 02/06/14). Mitral valvular stenosis and aortic valvular stenosis (Acute 02/06/14). 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 micral >200. Pernicious anemia (Chronic 02/16/99). H/o Fe infusion; h/o intol oral iron. Multiple falls (Chronic 08/24/16). 04/2016; 05/2016; PT Tano Ray. Moderate obstructive sleep apnea (Chronic 09/24/16). CPAP since 09/2015 due to moderately severe. Lichen sclerosus (Chronic 12/16/14). DrPaul 2008, perineum; responds to clobetasol. Hyperlipidemia (Chronic 09/18/92). Gait disturbance (Chronic 03/29/17). Essential hypertension (Chronic 09/18/1960). on HCTZ 25 since 20 y/o! Allergic rhinitis (Chronic 02/06/14). Anemia (Chronic). AF (atrial fibrillation) (Chronic). CHF (congestive heart failure) (Chronic). Medical History . Hip fracture, intertrochanteric. Muscle pain (11/14/15). buttock and ant thigh, with exertion, ? spinal caludication. Pneumonia. SCCA (squamous cell carcinoma) of skin. Derm: Dr Simpson; Left baptism SCCA 12/2016, 06/2018; Frontal parietal scalp SCCA 06/2018; left cheek 09/2019. Stroke due to embolism (~01/17/20). Surgical History . Cataract, rgt eye (06/24/15). Dilation and curettage. 1960's. Extraction of cataract (06/10/15). Left eye- Dr. Morales. Status post hip surgery (~09/2020). LEFT intra trochanteric fx s/p cephalo medullary nailing. Tonsillectomy and adenoidectomy PREVIOUS FUNCTIONAL STATUS/SOCIAL/FAMILY SUPPORTS:: Leila is and lives in a first floor appartment in [facility]. She identifies her Nephew Antonio and friend Jessica as being very helpful. Per Leila, Jessica takes her to appointments and grocery store and helps her mow her lawn. 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 Leila is independent with her ADL's and shares that she has lots of friends and support. CURRENT FUNCTIONAL STATUS:: Leila was laying in bed when CM met with her. She is alert, oriented and easy to engage in conversation. Leila reports becoming progressively sob after her last discharge and being scared much of the time, especially at night. She is currenltly 97% on 3L NC. Leila states that she does not feel safe being home alone, but is also clear that she absolutely does not want to go to a chcf. Leila is agreeable to a Palliative Care consult to discuss goals of care. ADVANCE DIRECTIVES:: HCA is daughter Nafisa Waite Has patient been provided with info about the portal/API?: Yes Did the patient sign up for the portal?: No CODE STATUS:: DNR/DNI (DNR/DNI (COLST on file)) INSURANCE COVERAGE / FINANCIAL ISSUES:: Medicare. for life MCR AB CURRENT HOME/COMMUNITY SERVICES/EQUIPMENT:: PETRA. [place] PRIMARY CARE PHYSICIAN:: Sue Klein POTENTIAL DISCHARGE NEEDS:: Dependent on goals of care: SNF for STR vs Home with increased support vs Palliative/Hospice. PATIENT/FAMILY EDUCATION NEEDS:: Review discharge instructions, limitations, medications and plan to follow up with community providers. ask me three. TRANSPORTATION:: Dependent on disposition PLAN:: Palliative referral placed to discuss goals of care. Anticipate, Leila will discharge to SNF for STR vs. home with increased supports vs. Palliative/Hospice, depending on goals of care. Leila will follow up with her c ommunity providers and discharge plan of care as prescribed.
--- NOTE | 2022-02-23 10:07 | W.NUTCONSULT ---
Date of service: 02/23/22 Time of Service: 10:07 Nutritional Consult ASSESSMENT: Leila was pleasantly confused today.? SHe cannot explain recent weight loss, now with BMI of 16.9 She appears cachexic with loss temporal fat/muscle.? ? PMH: DM, CHF, CKD.? Home meds include remeron 7.5 mg, mg BID.?? Following diabetic diet and completing about 50% of meals.? Needs to complete >70% of meals to meet macronutrient needs.? Most recent A1C: 7.3% indicating well controlled DM2. At nutritional risk and at risk for skin breakdown. Estimated Needs: [id number] kcal, 52-62 g protein, 30-40 g fat NUTRITIONAL DIAGNOSIS: moderate malnutrition in view of low BMI and cachexic appearence INTERVENTION: supplement diabetic diet with glucerna BID MONITORING AND EVALUATION: po intake, labs, weight Time Spent in Nutritional Counseling and Treatment: 5
[2022-02-23 14:45] VITALS: BP 109/61; PULSE 68; RESP 16; TEMP 37; O2SAT 97
--- NOTE | 2022-02-23 17:40 | PGE_ITS ---
Date of Service Date of service: 02/23/22 Time of Service: 17:40 Assessment and Plan Assessment and plan (1) Acute on chronic heart failure: Status: Acute Assessment and plan: echo 02/15/22: Conclusion Mild to moderate concentric left ventricular hypertrophy.? Estimated ejection fraction 55 to 60%.? Wall motion is normal The right ventricle appears normal in size and systolic function The left atrium is moderately to severely dilated.? The right atrium is moderately dilated Aortic valve is calcified.? There is critical aortic stenosis.? Peak gradient is 103, mean 64 mmHg.? Calculated aortic valve area 0.41 cm??.? There is mild aortic regurgitation Thickened mitral leaflets.? Mitral annular calcification.? Moderate mitral regurgitation Normal tricuspid valve with moderate regurgitation.? Estimated right ventricular systolic pressure is 47 mmHg received IV lasix in the ED and put out 400 cc will continue daily lasix while closely monitoring response will use cautiously in setting of severe monitor I&O closely, daily weights (2) Critical aortic valve stenosis: Status: Acute Assessment and plan: followed by [facility] [place]. 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 Assessment and plan: last A1C in December of this year is 7.3 carb controlled diet check blood sugars ac/hs with sliding scale as needed, hold metformin while hospitalized Qualifiers: Diabetes mellitus correction insulin use: unspecified correction insulin use status Diabetes mellitus complication detail: with chronic kidney disease Chronic kidney disease stage: stage 3 (moderate) Chronic kidney disease stage 3 subtype: stage 3a (GFR 45-59) Qualified Code(s): E11.22 - Type 2 diabetes mellitus with diabetic chronic kidney disease; N18.31 - Chronic kidney disease, stage 3a (4) CKD (chronic kidney disease): Status: Chronic Assessment and plan: stable. Qualifiers: Chronic kidney disease stage: unspecified stage Qualified Code(s): N18.9 - Chronic kidney disease, unspecified (5) AF (atrial fibrillation): Status: Chronic Assessment and plan: rate controlled. Continue diltiazem on apixaban (6) Moderate obstructive sleep apnea: Status: Chronic (7) DVT prophylaxis: Status: Deleted Assessment and plan: teds and scd anticoagulated on apixaban (8) Discharge planning issues: Status: Acute Assessment and plan: palliative care consult placed and pending case management following discussed with Dr Yonis Subjective Subjective Patient reports: no new complaints, feels better, tolerating liquids well, voiding w/o difficulty, shortness of breath and afebrile Exam Const General: no acute distress Orientation: alert [facility] Head: normal to inspection Ears: external ears normal General nose exam: external nose normal Mouth: moist mucous membranes Eyes General: appearance normal, both eyes and all related structures Neck Neck: normal visual inspection Resp Effort & Inspection: other (crackles at the bases bilaterally) Cardio Rate: regular rate Heart Sounds: murmur systolic harsh and / Skin General skin exam: no rashes or lesions noted Neuro General: patient alert, patient awake, patient oriented x3 and no focal motor deficits Extrem General: capillary refill normal and pedal edema (trace) bilaterally Psych Mental Status: mental status grossly normal Objective Last Vital Signs Temp 37.0 C 02/23/22 14:45 Pulse 68 02/23/22 14:45 Resp 16 02/23/22 14:45 BP 109/61 02/23/22 14:45 Pulse Ox 97 02/23/22 14:45 Laboratory Results - last 24 hr 02/23/22 02/23/22 05:58 05:58 WBC 11.94 H RBC 2.70 L Hgb 7.8 L Hct 24.6 L MCV 91 MCH 28.9 MCHC 31.7 L RDW 15.6 H Plt Count 262 MPV 11.0 Immature Gran % 0.8 Neutrophils % 69.4 Lymphocytes % 16.1 Monocytes % 10.9 Eosinophils % 2.0 Basophils % 0.8 Nucleated RBC % 0.2 Absolute Neutrophils 8.29 H Absolute Lymphocytes 1.92 Absolute Monocytes 1.30 H Absolute Eosinophils 0.24 Absolute Basophils 0.10 Sodium 136 Potassium 4.2 D Chloride 99 Carbon Dioxide 30.8 Anion Gap 6.2 BUN 30 H Creatinine 1.0 Estimated GFR/1.73 m2 52.82 Glucose 188 H Calcium 8.9
[2022-02-23] MEDS: Atorvastatin 40 MG TAB PO (21:09)
[2022-02-23] MEDS: Mirtazapine 15 MG TAB 7.5 MG PO (21:10)
[2022-02-23] MEDS: dilTIAZem CD 120 MG CAPCR PO (21:10)
[2022-02-23 23:17] VITALS: BP 125/58; PULSE 86; RESP 16; TEMP 36.8; O2SAT 97
[2022-02-24] MEDS: Insulin Aspart 300 UNITS/3 ML PEN SC ×4 (07:36→22:22)
[2022-02-24] MEDS: Pantoprazole 40 MG TABCR PO ×2 (07:36→19:49)
[2022-02-24] MEDS: Furosemide 20 MG TAB PO (07:36)
[2022-02-24] MEDS: Apixaban 2.5 MG TAB PO ×2 (07:36→19:49)
[2022-02-24 07:52] VITALS: BP 121/55; PULSE 87; RESP 16; TEMP 36.6; O2SAT 98
[2022-02-24] MEDS: Normal Saline Flush 10 ML SYR IVP (07:56)
--- NOTE | 2022-02-24 09:28 | PDOC.CMPRO ---
- If Service Date Differs Date of service: 02/24/22 Time of Service: 09:28 Care Management Progress Note S/O: Leila meets inpatient admission criteria for CHF management. Antonio has been in close contact with the [facility] and will drop off the application later today. The [facility] is currently holding a bed for Leila. Leila may discharge to [facility] on Tuesday if paperwork is processed and she is medically ready per provider. Leial may benefit from an outpatient palliative consult. And may need orders for Lesage 02. A: 82 year old female re-admitted to [facility] on 02/23/22 for Acute on Chronic Heart Failure. P:Palliative referral placed to discuss goals of care. Anticipate, Leila will discharge to [facility] with resumption of [facility] services and Lesage O2 (if indicated). Leila will follow up with her community providers and discharge plan of care as prescribed.
[2022-02-24 12:45] LABS: Glucose 408 mg/dL (74-106)
--- NOTE | 2022-02-24 12:48 | PGE_ITS ---
Date of Service Date of service: 02/24/22 Time of Service: 12:58 Assessment and Plan Assessment and plan (1) Acute on chronic heart failure: Status: Acute Assessment and plan: will continue daily lasix 20 mg while closely monitoring response she is tolerating well will use cautiously in setting of severe monitor I&O closely, daily weights echo 02/15/22: Conclusion Mild to moderate concentric left ventricular hypertrophy.? Estimated ejection fraction 55 to 60%.? Wall motion is normal The right ventricle appears normal in size and systolic function The left atrium is moderately to severely dilated.? The right atrium is moderately dilated Aortic valve is calcified.? There is critical aortic stenosis.? Peak gradient is 103, mean 64 mmHg.? Calculated aortic valve area 0.41 cm??.? There is mild aortic regurgitation Thickened mitral leaflets.? Mitral annular calcification.? Moderate mitral regurgitation Normal tricuspid valve with moderate regurgitation.? Estimated right ventricular systolic pressure is 47 mmHg (2) Critical aortic valve stenosis: Status: Acute Assessment and plan: followed by [facility]. 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 Assessment and plan: blood sugars poorly controlled off metformin last A1C in December of this year is 7.3 carb controlled diet check blood sugars ac/hs with sliding scale changed to resistant, will restart metformin Qualifiers: Diabetes mellitus jail insulin use: unspecified jail insulin use status Diabetes mellitus complication detail: with chronic kidney disease Chronic kidney disease stage: stage 3 (moderate) Chronic kidney disease stage 3 subtype: stage 3a (GFR 45-59) Qualified Code(s): E11.22 - Type 2 diabetes mellitus with diabetic chronic kidney disease; N18.31 - Chronic kidney disease, stage 3a (4) CKD (chronic kidney disease): Status: Chronic Assessment and plan: stable. Qualifiers: Chronic kidney disease stage: unspecified stage Qualified Code(s): N18.9 - Chronic kidney disease, unspecified (5) AF (atrial fibrillation): Status: Chronic Assessment and plan: rate controlled. Continue diltiazem on apixaban (6) Moderate obstructive sleep apnea: Status: Chronic (7) DVT prophylaxis: Status: Deleted Assessment and plan: teds and scd anticoagulated on apixaban (8) Discharge planning issues: Status: Acute Assessment and plan: palliative care consult placed and pending case management following discussed with Dr Somers Subjective Subjective Patient reports: no new complaints, feels better, tolerating liquids well, shortness of breath (at baseline but still requiring oxygen) and afebrile Exam Const General: no acute distress Orientation: alert [facility] Head: normal to inspection Ears: external ears normal General nose exam: external nose normal Mouth: moist mucous membranes Eyes General: appearance normal, both eyes and all related structures Neck Neck: normal visual inspection Resp Effort & Inspection: other (crackles at the bases bilaterally) Cardio Rate: regular rate Heart Sounds: murmur systolic harsh and / Skin General skin exam: no rashes or lesions noted Neuro General: patient alert, patient awake, patient oriented x3 and no focal motor deficits Extrem General: capillary refill normal and pedal edema (trace) bilaterally Psych Mental Status: mental status grossly normal Objective Last Vital Signs Temp 36.6 C 02/24/22 07:52 Pulse 87 02/24/22 07:52 Resp 16 02/24/22 07:52 BP 121/55 L 02/24/22 07:52 Pulse Ox 98 02/24/22 07:52 Laboratory Results - last 24 hr 02/24/22 12:05 Glucose 408 H
[2022-02-24 15:05] VITALS: BP 113/62; PULSE 85; RESP 16; TEMP 37.4; O2SAT 98
--- NOTE | 2022-02-24 16:39 | CHAPLAIN ---
Leila was watching TV in bed when I visited. She shared some history telling me about her family's moves across that country while her was in the service, before settling back in [facility]. It's been a good life, she said a few times during our conversation. Leila said she hasn't see the hospitalist yet today and she's not sure what her plan of care is right now. She identified her nephew as a strong support and said she's very appreciative of all the he's done for her. She doesn't have any other relatives around. Leila is a member of the [place] and gave me permission to let the restorationism know she is here.
[2022-02-24 17:44] LABS: Glucose 405 mg/dL (74-106)
[2022-02-24] MEDS: metFORMIN 850 MG TAB PO (20:08)
[2022-02-24] MEDS: Mirtazapine 15 MG TAB 7.5 MG PO (22:22)
[2022-02-24] MEDS: dilTIAZem CD 120 MG CAPCR PO (22:22)
[2022-02-24] MEDS: Atorvastatin 40 MG TAB PO (22:22)
[2022-02-24 23:25] VITALS: BP 122/56; PULSE 81; RESP 16; TEMP 36.4; O2SAT 96
[2022-02-25 07:51] VITALS: BP 106/49; PULSE 80; RESP 17; TEMP 36.9; O2SAT 92
[2022-02-25] MEDS: metFORMIN 850 MG TAB PO ×2 (08:10→16:53)
[2022-02-25] MEDS: Pantoprazole 40 MG TABCR PO ×2 (08:10→20:35)
[2022-02-25] MEDS: Apixaban 2.5 MG TAB PO ×2 (08:10→20:36)
[2022-02-25] MEDS: Furosemide 20 MG TAB PO (08:10)
[2022-02-25] MEDS: Insulin Aspart 300 UNITS/3 ML PEN SC ×4 (08:11→21:59)
[2022-02-25] MEDS: Acetaminophen 325 MG TAB 650 MG PO (08:11)
[2022-02-25] MEDS: Normal Saline Flush 10 ML SYR IVP (08:11)
--- NOTE | 2022-02-25 09:21 | PDOC.CMPRO ---
- If Service Date Differs Date of service: 02/25/22 Time of Service: 09:21 Care Management Progress Note S/O: Leila was lying in bed when LUDIN met with her. She is pleasant and easy to engage in conversation. She is looking forward to discharging to the [facility] soon. She tells this radio script writer that she used to knit years ago, and may try it again if able. LUDIN spoke with Mary from the [facility] this morning. Mary met with Antonio yesterday evening and the two are working on the financial piece (her finances need to be run through a state formula.) Mary expects that the application will process with the state today. If able to move forward, anticipate Leila will be able to discharge to the [facility] Tuesday afternoon. New Oxygen orders will need to go to [facility]. Per Leila and Antonio Dee, no home O2 was received from [facility] following her last discharge. A: 82 year old female re-admitted to [facility] on 02/23/22 for Acute on Chronic Heart Failure. P:Palliative referral placed to discuss goals of care. Anticipate, Leila will discharge to [facility] with resumption of [facility] services and Home O2 (if indicated). Leila will follow up with her community providers and discharge plan of care as prescribed.
[2022-02-25 14:31] VITALS: PULSE 73; PULSE 74; PULSE 84; PULSE 85; RESP 16; RESP 19; O2SAT 84; O2SAT 90; O2SAT 95; O2SAT 98
[2022-02-25 15:12] VITALS: BP 101/61; PULSE 68; RESP 18; TEMP 37.4; O2SAT 91
--- NOTE | 2022-02-25 15:54 | W.PM.PROGNOT ---
Date of Service Date of service: 02/25/22 Time of Service: 15:54 Assessment and Plan Assessment and plan (1) Urinary tract infection: Status: Acute Assessment and plan: urine culture growing Group B strep and Klebsiella oxytoca. She has been afebrile . will treat with nitrofurantoin in setting of poorly controlled blood sugars based on culture report and allergy to cefazolin. (2) Acute on chronic heart failure: Status: Acute Assessment and plan: will continue daily lasix 20 mg while closely monitoring response she is tolerating well will use cautiously in setting of severe monitor I&O closely, daily weights echo 02/15/22: Conclusion Mild to moderate concentric left ventricular hypertrophy.? Estimated ejection fraction 55 to 60%.? Wall motion is normal The right ventricle appears normal in size and systolic function The left atrium is moderately to severely dilated.? The right atrium is moderately dilated Aortic valve is calcified.? There is critical aortic stenosis.? Peak gradient is 103, mean 64 mmHg.? Calculated aortic valve area 0.41 cm??.? There is mild aortic regurgitation Thickened mitral leaflets.? Mitral annular calcification.? Moderate mitral regurgitation Normal tricuspid valve with moderate regurgitation.? Estimated right ventricular systolic pressure is 47 mmHg (3) Critical aortic valve stenosis: Status: Acute Assessment and plan: followed by [facility]. 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 Qualifiers: Chronic kidney disease stage: unspecified stage Qualified Code(s): N18.9 - Chronic kidney disease, unspecified (6) AF (atrial fibrillation): Status: Chronic Assessment and plan: rate controlled. Continue diltiazem on apixaban (7) Moderate obstructive sleep apnea: Status: Chronic (8) DVT prophylaxis: Status: Deleted Assessment and plan: teds and scd anticoagulated on apixaban (9) Discharge planning issues: Status: Acute Assessment and plan: palliative care consult placed and pending case management following discussed with Dr Somers Subjective Subjective Patient reports: no new complaints, tolerating liquids well, tolerating a regular diet and afebrile; denies shortness of breath Interval history since last seen: c/o discomfort on bony prominences, Exam Const General: no acute distress Orientation: alert [facility] Head: normal to inspection Ears: external ears normal General nose exam: external nose normal Mouth: moist mucous membranes Eyes General: appearance normal, both eyes and all related structures Neck Neck: normal visual inspection Resp Effort & Inspection: other (crackles at the bases bilaterally) Cardio Rate: regular rate Heart Sounds: murmur systolic harsh and / Neuro General: patient alert, patient awake, patient oriented x3 and no focal motor deficits Extrem General: capillary refill normal and pedal edema (trace) bilaterally Psych Mental Status: mental status grossly normal Objective Last Vital Signs Temp 37.4 C 02/25/22 15:12 Pulse 68 02/25/22 15:12 Resp 18 02/25/22 15:12 BP 101/61 02/25/22 15:12 Pulse Ox 91 L 02/25/22 15:12 Laboratory Results - last 24 hr 02/24/22 17:15 Glucose 405 H
[2022-02-25] MEDS: Mirtazapine 15 MG TAB 7.5 MG PO (21:58)
[2022-02-25] MEDS: Atorvastatin 40 MG TAB PO (21:58)
[2022-02-25] MEDS: dilTIAZem CD 120 MG CAPCR PO (21:58)
[2022-02-25 22:03] VITALS: BP 125/70; PULSE 108; RESP 18; TEMP 37.7; O2SAT 91
[2022-02-25 23:10] VITALS: BP 132/80; PULSE 89; RESP 18; TEMP 37.3; O2SAT 95
[2022-02-26 05:34] VITALS: O2SAT 91
[2022-02-26 06:51] LABS: Abs Immature Grans 0.17 10^3/uL (0.0-0.06); Absolute Lymphocyte Count 1.25 10^3/uL (1.2-3.4); Absolute Monocyte Count 0.91 10^3/uL (0.1-0.8); Basophils % 0.6; Eosinophils % 0.4; HCT 23.6 % (36.0-46.0); HGB 7.5 g/dL (11.2-15.7); Immature Grans % 1.1; Lymphocytes % 7.8; MCH 28.4 pg (27.0-33.0); MCHC 31.8 % (32.0-36.0); MCV 89 fL (80-95); MPV 11.2 fL (8.0-11.0); Monocytes % 5.7; Neutrophils % 84.4; Platelet Count 282 10^3/uL (130-400); RBC 2.64 10^6/uL (3.93-5.22); RDW 15.7 % (11.7-14.6); RDW-SD 51.8 fL; WBC 15.97 10^3/uL (4.4-10.8)
[2022-02-26 06:58] LABS: Absolute Eosinophil Count 0.06 10^3/uL (0.0-0.7); Absolute Neutrophil Count 13.48 10^3/uL (1.2-6.7)
[2022-02-26 07:16] LABS: BUN 38 mg/dL (7-18); CREATININE 1.2 mg/dL (0.55-1.02); Calcium 8.9 mg/dL (8.5-10.1); Chloride 97 mmol/L (98-107); Glucose 349 mg/dL (74-106); Sodium 134 mmol/L (136-145)
[2022-02-26 07:22] VITALS: BP 121/68; PULSE 87; RESP 14; TEMP 36.5; O2SAT 93
[2022-02-26] MEDS: Pantoprazole 40 MG TABCR PO (07:47)
[2022-02-26] MEDS: metFORMIN 850 MG TAB PO (07:47)
[2022-02-26] MEDS: Furosemide 20 MG TAB PO (07:47)
[2022-02-26] MEDS: Insulin Aspart 300 UNITS/3 ML PEN SC ×2 (07:47→12:20)
[2022-02-26] MEDS: Apixaban 2.5 MG TAB PO (07:47)
--- NOTE | 2022-02-26 10:40 | PCNE_ITS ---
Date of service: 02/26/22 Time of Service: 10:40 History of Present Illness Narrative: Leila is a very pleasant 82 year old female with multiple comorbidities including critical for which she previously declined surgical repair. She has been living alone in an apartment up until this admission. She was discharged from the hospital about 1 week ago after refusing SNF placement. Her previous admission was for SOB and rectal bleeding, she never received blood products and refused endoscopy. She was only home for 4 days when she became more SOB and was found by EMS to be hypoxic with O2 saturation in the 80s. She had one fall while at home and Fx her left hip, Sep 2020. She denies recent falls. She reports having a decreased appetite. She has been eating about 25-50% of her meals in the hospital. Her weight is stable Staff reports that she is sleeping most of the time. She does not want to get OOB. She requires assistance with ambulation. She does not have PT this admission but on her recent admission, she was not meeting stated goals and SNF placement for PT was recommended. We discussed goals of care. Leila would prefer to stay out of the hospital. She has already declined surgical repair of her critical . She declined endoscopy during her recent hospitalization. We discussed CODE status. She is clear that she is a DNR/DNI. She previously completed a COLST form with her PCP that indicated that she would want short term intubation but she is clear today that she does not want that. A new COLST was completed. When questioned who should speak for her if she is unable to speak for herself, she names her daughter, Nafisa Waite and her nephew, Antonio Myles. I called Nafisa chester while seeing Leila at the hospital and left a message. I spoke with Antonio via phone who verbalizes that he is very close to Leila. He has been doing her grocery shopping and checking in on her frequently at home. He has noticed that she has been eating less at home. He supports whatever decisions she makes for her care. The plan is for her to discharge to [facility]. She is interested in being admitted to hospice services at . 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 Qualifiers: Diabetes mellitus skilled nursing insulin use: unspecified supervisor intermediates insulin use status Diabetes mellitus complication detail: with chronic kidney disease Chronic kidney disease stage: stage 3 (moderate) Chronic kidney disease stage 3 subtype: stage 3a (GFR 45-59) Qualified Code(s): E11.22 - Type 2 diabetes mellitus with diabetic chronic kidney disease; N18.31 - Chronic kidney disease, stage 3a (10) Weight loss: Status: Acute (11) CKD (chronic kidney disease): Status: Chronic Qualifiers: Chronic kidney disease stage: unspecified stage Qualified Code(s): N18.9 - Chronic kidney disease, unspecified (12) Peripheral neuropathy: Status: Acute (13) Physical deconditioning: Status: Acute (14) GI bleed: Status: Chronic (15) Hypoxia: Status: Acute (16) Urinary tract infection: Status: Acute (17) Stroke due to embolism: (18) DNR (do not resuscitate) discussion: Status: Acute (19) DNI (do not intubate): Status: Acute (20) Physician orders for life-sustaining treatment (POLST) form indicates patient wish for [id number] status: Status: Acute (21) Palliative care patient: Status: Acute Assessment and plan: Leila was seen for a palliative consult to disucss goals of care. She is clear that she is a DNR/DNI. She wishes to avoid being in the hospital but she wants to be kept comfortable. She prefers a palliative approach to her care. She does not want aggressive care. She has previously declined surgical repair of her critical and recently declined endoscopy for GI bleeding. She is SOB with activity and mildly with talking. She is eating about 25-50% of her meals at the hospital. Staff report that she does not want to get out of bed. She requires assistance with ambulation and care. Discussed hospice, which she is interested in and she qualifies. Discussed hospice with her nephew, Antonio Myles who agrees with whatever Leila wants. Called her daughter, Nafisa, but she was not available by phone. Notified hospice that she will likely be admitted next week. Mary Funes at aware. Follow up with hospice. Review of Systems Narrative: She continues to have SOB. She has a decreased appetite. She denies pain at this time. [facility] All Active Problems (Updated 02/26/22 @ 15:29 by Jacqueline Weber NP) Physician orders for life-sustaining treatment (POLST) form indicates patient wish for [id number] status (Acute) DNI (do not intubate) (Acute) DNR (do not resuscitate) discussion (Acute) Palliative care patient (Acute) Urinary tract infection (Acute) Discharge planning issues (Acute) Hypoxia (Acute) Sleep difficulties (Acute) Acute on chronic heart failure (Acute) GI bleed (Chronic) Vitamin B12 deficiency (Acute) Anemia (Chronic) Physical deconditioning (Acute) Peripheral neuropathy (Acute) CKD (chronic kidney disease) (Chronic) Weight loss (Acute) Critical aortic valve stenosis (Acute) TTE 01/17/20: Critical Aortic Stenosis (0.5 cm2, 43 mmHg) Mitral Valve Stenosis Tinnitus (Acute) Asthma without status asthmaticus (Acute 02/06/14) Mitral valvular stenosis and aortic valvular stenosis (Acute 02/06/14) 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 Allergic rhinitis (Chronic 02/06/14) Anemia (Chronic) AF (atrial fibrillation) (Chronic) CHF (congestive heart failure) (Chronic) Medical History Hip fracture, intertrochanteric Muscle pain (11/14/15) buttock and ant thigh, with exertion, ? spinal caludication Pneumonia SCCA (squamous cell carcinoma) of skin Derm: Dr Simpson; Left jewish SCCA 12/2016, 06/2018; Frontal parietal scalp SCCA 06/2018; left cheek 09/2019 Stroke due to embolism (~01/17/20) Surgical History Cataract, rgt eye (06/24/15) Dilation and curettage 1960's Extraction of cataract (06/10/15) Left eye- Dr. Morales Status post hip surgery (~09/2020) LEFT intra trochanteric fx s/p cephalo medullary nailing Tonsillectomy and adenoidectomy Family History Mother , 90 Alzheimer disease Father , age 64 esophageal CA, ETOH Alcohol abuse Personal history of malignant neoplasm esophageal Brother Stroke Seizures Social History Smoking/Tobacco Use Status: Former Tobacco Use Smoking risk assessment performed?: Yes Alcohol Intake: never Drug use: Never Substance use type: does not use Adopted: No Foster care: No Number of Children: 2 current occupation: retired [employer] Current gender identity: female Other: 2 children, 1 What is your relationship status?: Panel score (0-1 are the most socially isolated patients): 0 What type of physical activity do you participate in: none Seatbelt use: always Drive intox or ride w/intox funeral car driver: No Water heater temp set <120 deg: Yes Working smoke detector in home: Yes Fire extinguisher in home: No Carbon monox detector in home: Yes Do you feel safe at home: Yes Do you feel safe in your relationship?: Yes Victim of emotional abuse: No Victim of sexual abuse: No Would you like helpful sources: No Exam Narrative Exam Narrative: General: Very pleasant, elderly female, lying in her hospital bed. She is very thin. She is alert and oriented, engages in conversation and answers questions appropriately. HEENT: Normocephalic, atraumatic, EOMI, mucous membranes moist. Cardiovascular: Heart sounds regular, nontachycardic, loud murmur noted across the precordium. Respiratory: Appears mildly short of breath at rest, while talking. Lung sounds are diminished throughout. No rales or wheezing. GI: +BS, abdomen is soft, nontender on palpation, nondistended. Extremities: Moves all 4 extremities freely, extremities are thin, no edema. Results Last Vital Signs Temp 36.5 C 02/26/22 07:22 Pulse 87 02/26/22 07:22 Resp 14 02/26/22 07:22 BP 121/68 02/26/22 07:22 Pulse Ox 93 02/26/22 07:22 Labs Result diagrams: 02/26/22 06:13 02/26/22 06:13 Labs: Laboratory Results - last 24 hr 02/26/22 02/26/22 06:13 06:13 WBC 15.97 H RBC 2.64 L Hgb 7.5 L Hct 23.6 L MCV 89 MCH 28.4 MCHC 31.8 L RDW 15.7 H Plt Count 282 MPV 11.2 H Immature Gran % 1.1 Neutrophils % 84.4 Lymphocytes % 7.8 Monocytes % 5.7 Eosinophils % 0.4 Basophils % 0.6 Nucleated RBC % 0.0 Absolute Neutrophils 13.48 H Absolute Lymphocytes 1.25 Absolute Monocytes 0.91 H Absolute Eosinophils 0.06 Absolute Basophils 0.10 Sodium 134 L Potassium 4.0 Chloride 97 L Carbon Dioxide 29.0 Anion Gap 8.0 BUN 38 H Creatinine 1.2 H Estimated GFR/1.73 m2 42.80 Glucose 349 H Calcium 8.9
[2022-02-26] MEDS: Normal Saline Flush 10 ML SYR IVP ×2 (12:01→14:01)
[2022-02-26] MEDS: IRON SUCROSE COMPLEX 200 MG in Normal Saline 100 ML 400 MG IVPB (12:01)
[2022-02-26] MEDS: Milk of Magnesia 30 ML CUP PO (12:28)
--- NOTE | 2022-02-26 13:56 | DSE_ITS ---
Date of service: 02/26/22 Time of Service: 13:56 DS: Diagnosis Discharge Diagnosis (1) Urinary tract infection: Status: Acute (2) Acute on chronic heart failure: Status: Acute (3) Critical aortic valve stenosis: Status: Acute (4) Type II diabetes mellitus with renal manifestations: Status: Chronic (5) CKD (chronic kidney disease): Status: Chronic (6) AF (atrial fibrillation): Status: Chronic (7) Moderate obstructive sleep apnea: Status: Chronic Discharge Plan Disposition Patient Disposition: [facility] Condition: Stable Discharge Details Reason For Visit: CHF Admit Date/Time: 02/24/22 10:13 Admit Provider: Arturo Joy Attending Provider: Arturo Joy Primary Care Provider: Sue Klein Hospital Course Hospital Course: This is a 82 year old female with history of severe aortic stenosis, refuses repair, who was recently hospitalized for shortness of breath and rectal bleeding.? She never required blood product, apixaban placed on hold during admission but resumed at discharge with addition of pantoprazole (she decline endoscopy), she was weaned off oxygen and reambulated.? despite concern for a safe home discharge, patient was ultimately discharged with services after adamantly refusing skilled rehab facility.? She states she did well for one or two days but quickly became increasingly more short of breath.? EMS found her hypoxic in the 80's on room air.? work in the ED showed heart failure on xray, and bedside us with EF approx 40-50%, She was given lasix with approx 400 cc out initially.? This improved her symptoms.? She was also started on levaquin for suspected UTI (cephalosporin allergy).? hospitalist services was contacted and she was referred to observation for monitoring and discharge planning.?Her urine grew klebsiella and group B strep. after pharmacy review it was decided to treat with ceftriaxone as she has pr eviously tolerated ceftriaxone in the past. She tolerated it with no evidence of adverse reaction and will be discharged on cephalexin 500 mg tid for 5 days to complete her course. She was seen by palliative care and plan is to be discharged to [facility]. She has been qualified for oxygen and will be discharged there for further management and hospice evaluation. discussed with Dr Somers Hennessey Meds and New Rx's Prescriptions: New cephalexin 500 mg capsule 500 mg PO TID Qty: 12 0RF Continued mirtazapine 7.5 mg tablet 7.5 mg PO QHS Qty: 90 0RF (DME) pen needle, diabetic [Pen Needle] 31 gauge x 5/16 needle See Rx Instructions .ROUTE .MEDSUPPLY Qty: 100 3RF Rx Instructions: As directed to administer insulin QD. Dispense covered brand. diltiazem HCl 120 mg capsule,extended release 24hr 120 mg PO HS Qty: 90 3RF Rx Instructions: to control heart rate acetaminophen 325 mg capsule 650 mg PO ONCE PRN (Reason: pain) (DME) blood-glucose meter Misc See Rx Instructions .ROUTE .MEDSUPPLY Qty: 1 0RF Rx Instructions: As directed to check blood glucose daily. On insulin. Dispense covered brand. (DME) Blood Glucose Test Strip See Rx Instructions .ROUTE .MEDSUPPLY Qty: 100 3RF Rx Instructions: As directed to check blood glucose once daily. On insulin. Dispense covered brand. (DME) lancets Misc See Rx Instructions .ROUTE .MEDSUPPLY Qty: 100 3RF Rx Instructions: As directed to check blood glucose daily. On insulin. Dispense covered brand. cyanocobalamin (vitamin B-12) 1,000 mcg tablet 1,000 mcg PO DAILY Qty: 90 3RF magnesium oxide 400 mg magnesium capsule 400 mg PO DAILY Qty: 90 3RF Rx Instructions: Administer at least 2 hours apart from other medications metformin [Glucophage] 850 mg tablet 850 mg PO BID Qty: 180 3RF Rx Instructions: to control blood sugars imiquimod 5 % cream in packet 1 applic topical .3 times per week Rx Instructions: use 3 times weekly for 4 weeks then discontinue atorvastatin 40 mg tablet 40 mg PO HS Qty: 90 3RF apixaban 2.5 mg tablet 2.5 mg PO BID Qty: 180 3RF pantoprazole 40 mg tablet,delayed release (DR/EC) 40 mg PO BID Qty: 14 0RF Discontinued pantoprazole 40 mg tablet,delayed release (DR/EC) 40 mg PO BID Qty: 60 0RF Discharge Instructions Instructions: Aortic Stenosis (DC) Additional Instructions: medication will be overseen by hospice services. Stand Alone Forms: [facility] Dis[facility] Form [facility] - Activity:: Activity as Tolerated Equipment/Supplies:: 2 liter nc to keep sat 90 Diet:: Low Sodium Discharge Orders Discharge Orders: Discharge Order (Routine); Ordered 02/26/22 Ordered By: Theresa Smith Discharge Data Discharge Date/Time-TO BE ENTERED AT DEPARTURE: 02/26/22 15:35 DS: Summary Time Spent with Patient providing and/or coordinating discharge services: Greater than 30 minutes Status at Discharge Functional status at discharge: uses cane/walker Overall status at discharge: patient is not back to baseline Mental Status: mental status grossly normal Speech and Movement: speech and movement normal Mood: congruent mood Affect: normal affect Exam Const General: no acute distress Orientation: alert HENMT Head: normal to inspection Ears: external ears normal General nose exam: external nose normal Mouth: moist mucous membranes Eyes General: appearance normal, both eyes and all related structures Neck Neck: normal visual inspection Resp Effort & Inspection: other (crackles at the bases bilaterally) Cardio Rate: regular rate Heart Sounds: murmur systolic harsh and / Neuro General: patient alert, patient awake, patient oriented x3 and no focal motor deficits Extrem General: capillary refill normal and pedal edema (trace) bilaterally Psych Mental Status: mental status grossly normal Speech and Movement: speech and movement normal Mood: congruent mood Affect: normal affect DS: Data Vitals/I&O Vitals and I&O: Vital Signs Temperature 36.5 C 02/26/22 07:22 Temperature Source Tympanic 02/26/22 07:22 Pulse 87 02/26/22 07:22 Pulse Rhythm Irregular 02/26/22 08:36 Pulse 81 02/22/22 14:00 Respiratory Rate 14 02/26/22 07:22 Respiratory Effort Non-Labored 02/26/22 08:36 Respiratory Depth Normal 02/26/22 08:36 Respiratory Pattern Normal 02/26/22 08:36 Blood Pressure 121/68 02/26/22 07:22 Blood Pressure Mean 69 02/22/22 13:46 Pulse Oximetry 93 02/26/22 07:22 Oxygen Delivery Method Nasal Cannula 02/26/22 07:22 Oxygen Flow Rate 2 02/26/22 07:22 Pain Level 0 02/26/22 07:22 Comment 02/26/22 05:34 Intake & Output 02/25/22 02/26/22 02/26/22 23:59 11:59 23:59 Intake Total 290 / 650 280 / 520 240 / 520 Output Total 450 / 1550 550 / 650 100 / 650 Balance -160 / -900 -270 / -130 140 / -130 Weight 45.9 kg Intake: IV 50 / 50 Oral 240 / 600 280 / 520 240 / 520 Output: Urine 450 / 1550 550 / 650 100 / 650 Other: Urine Color Yellow Yellow Pale Yellow Urine Appearance Clear Clear Clear Urine Odor None Voiding Methods Toilet Toilet Toilet Data Completed and Pending Labs on day of discharge: Labs from last 24 hours 02/26/22 02/26/22 06:13 06:13 WBC 15.97 H RBC 2.64 L Hgb 7.5 L Hct 23.6 L MCV 89 MCH 28.4 MCHC 31.8 L RDW 15.7 H Plt Count 282 MPV 11.2 H Immature Gran % 1.1 Neutrophils % 84.4 Lymphocytes % 7.8 Monocytes % 5.7 Eosinophils % 0.4 Basophils % 0.6 Nucleated RBC % 0.0 Absolute Neutrophils 13.48 H Absolute Lymphocytes 1.25 Absolute Monocytes 0.91 H Absolute Eosinophils 0.06 Absolute Basophils 0.10 Sodium 134 L Potassium 4.0 Chloride 97 L Carbon Dioxide 29.0 Anion Gap 8.0 BUN 38 H Creatinine 1.2 H Estimated GFR/1.73 m2 42.80 Glucose 349 H Calcium 8.9 PFSH All Active Problems (Updated 02/26/22 @ 15:29 by Jacqueline Weber NP) Physician orders for life-sustaining treatment (POLST) form indicates patient wish for [id number] status (Acute) DNI (do not intubate) (Acute) DNR (do not resuscitate) discussion (Acute) Palliative care patient (Acute) Urinary tract infection (Acute) Discharge planning issues (Acute) Hypoxia (Acute) Sleep difficulties (Acute) Acute on chronic heart failure (Acute) GI bleed (Chronic) Vitamin B12 deficiency (Acute) Anemia (Chronic) Physical deconditioning (Acute) Peripheral neuropathy (Acute) CKD (chronic kidney disease) (Chronic) Weight loss (Acute) Critical aortic valve stenosis (Acute) TTE 01/17/20: Critical Aortic Stenosis (0.5 cm2, 43 mmHg) Mitral Valve Stenosis Tinnitus (Acute) Asthma without status asthmaticus (Acute 02/06/14) Mitral valvular stenosis and aortic valvular stenosis (Acute 02/06/14) 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 Allergic rhinitis (Chronic 02/06/14) Anemia (Chronic) AF (atrial fibrillation) (Chronic) CHF (congestive heart failure) (Chronic) Medical History Hip fracture, intertrochanteric Muscle pain (11/14/15) buttock and ant thigh, with exertion, ? 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 Morales Status post hip surgery (~09/2020) LEFT intra trochanteric fx s/p cephalo medullary nailing Tonsillectomy and adenoidectomy Family History Mother , 90 Alzheimer disease Father , age 64 esophageal CA, ETOH Alcohol abuse Personal history of malignant neoplasm esophageal Brother Stroke Seizures Social History Smoking/Tobacco Use Status: Former Tobacco Use Smoking risk assessment performed?: Yes Alcohol Intake: never Drug use: Never Substance use type: does not use Adopted: No Foster care: No Number of Children: 2 current occupation: retired [employer] Current gender identity: female Other: 2 children, 1 What is your relationship status?: Panel score (0-1 are the most socially isolated patients): 0 What type of physical activity do you participate in: none Seatbelt use: always Drive intox or ride w/intox ems driver: No Water heater temp set <120 deg: Yes Working smoke detector in home: Yes Fire extinguisher in home: No Carbon monox detector in home: Yes Do you feel safe at home: Yes Do you feel safe in your relationship?: Yes Victim of emotional abuse: No Victim of sexual abuse: No Would you like helpful sources: No
--- NOTE | 2022-02-26 14:34 | CMDISCH_ITS ---
- If Service Date Differs Date of service: 02/26/22 Time of Service: 14:34 LACE Index Scoring Tool - Questions: Length of Stay (in days): 2 Acuity (Admit via E.D.?): Yes Comorbidities: Diabetes w/o Complication, Congestive Heart Failure, Liver or Renal Disease E.D. Visits: 3 - Answers: Total Score: 13 Risk of Readmission: High Risk Care Management Discharge Reason for Hospitalization: Acute on chronic heart failure Discharge Plan: Leila will return to [facility] via private vehicle with her nephew, Antonio. She met with Palliative Care and expressed wanting to be admitted to Hospice. [facility] orders coordinated by RT. Jacqueline Leigh of Palliative notified Hospice and [facility] of patient wishes. [facility] KATE K[facility]. Patient/Family Education Needs: Review discharge instructions, discuss Ask Me Three. Services Needed at Discharge: Home Health Care Services (Hospice notification for anticipated admission post discharge. ), Oxygen Therapy ([facility])
[2022-02-26] MEDS: Bisacodyl 10 MG SUPP PR (14:36)
== END 2022-02-26 15:35 | disposition designated cancer center or children's hospital (05) | DRG 291 ==
LOC: ER 14:21 → MS 14:33
PROVIDERS: Internal Medicine; Nurse Practitioner Acute Care; Admitting Provider Internal Medicine; Emergency Provider Emergency Medicine; PCP Nurse Practitioner Family; Visit Provider Internal Medicine
DX: I13.0 Hypertensive heart and chronic kidney disease with heart failure and stage 1 through stage 4 chronic kidney disease, or unspecified chronic kidney disease (principal); I50.43 Acute on chronic combined systolic (congestive) and diastolic (congestive) heart failure; Z68.1 Body mass index [BMI] 19.9 or less, adult; K92.2 Gastrointestinal hemorrhage, unspecified; N39.0 Urinary tract infection, site not specified; E11.22 Type 2 diabetes mellitus with diabetic chronic kidney disease; N18.31 Chronic kidney disease, stage 3a; G47.33 Obstructive sleep apnea (adult) (pediatric); I48.91 Unspecified atrial fibrillation; R09.02 Hypoxemia; Z79.84 Long term (current) use of oral hypoglycemic drugs; E11.42 Type 2 diabetes mellitus with diabetic polyneuropathy; Z79.01 Long term (current) use of anticoagulants; R63.4 Abnormal weight loss; J45.909 Unspecified asthma, uncomplicated; D51.0 Vitamin B12 deficiency anemia due to intrinsic factor deficiency; L90.0 Lichen sclerosus et atrophicus; E78.5 Hyperlipidemia, unspecified; R26.9 Unspecified abnormalities of gait and mobility; Z86.73 Personal history of transient ischemic attack (TIA), and cerebral infarction without residual deficits; I08.3 Combined rheumatic disorders of mitral, aortic and tricuspid valves; E11.65 Type 2 diabetes mellitus with hyperglycemia; B96.1 Klebsiella pneumoniae [K. pneumoniae] as the cause of diseases classified elsewhere; B95.1 Streptococcus, group B, as the cause of diseases classified elsewhere; Z66 Do not resuscitate
CPT/HCPCS: 36415; 80048; 80053; 82805; 82947; 86850; 86900; 86901; 87077; 87635; 93005; 94618; 96365; 99285; 71045; 81003; 81015; 83735; 83880; 84439; 84443; 84484; 85025; 85610; 85730; 87086; 87186; 93010; 99220; 99226; 99233; 99239; G0378; J0696; J1756; J1941; J1956